=== PATIENT | female | born 1985 | race African-American/Black ===

== ENCOUNTER 2016-08-10 13:41 | Inpatient (IN) | payer MEDICAID ==
[~2016-08-10 13:41] MED LIST: DEXAMETHASONE SOD PHOSPHATE INJ 4 MG/1 ML VIAL ONE; KETOROLAC TROMETHAMINE 60 MG/2 ML SDV ONE; METOCLOPRAMIDE HCL INJ/PF 10 MG/2 ML SDV ONE; ONDANSETRON HCL INJ/PF 4 MG/2 ML SDV ONE; PHENYLEPHRINE HCL INJ/PF 10 MG/1 ML SDV ONE
[2016-08-10 14:35] LABS: APPEARANCE,URINE CLOUDY; BILIRUBIN,URINE NEGATIVE (NEGATIVE); GLUCOSE, URINE NEGATIVE (NEGATIVE); KETONES,URINE NEGATIVE (NEGATIVE); LEUKOCYTE ESTERASE,URINE LARGE (NEGATIVE); NITRITE,URINE NEGATIVE (NEGATIVE); PROTEIN,URINE 30 mg/dL (NEGATIVE); URINE SPECIFIC GRAVITY 1.019; UROBILINOGEN,URINE NEGATIVE mg/dL (<2.0)
[2016-08-10 14:52] LABS: URINE BARBITURATES SCREEN NEGATIVE; URINE METHADONE SCREEN NEGATIVE; URINE OPIATES LOW NEGATIVE; URINE PHENCYCLIDINE SCREEN NEGATIVE
[2016-08-10] MEDS ORDERED: IPRATROPIUM/ALBUTEROL 0.5-2.5 MG/3 ML AMPUL NEB ONE ×5 (15:01→17:00)
[2016-08-10 15:06] LABS: ABSOLUTE EOSINOPHILS # (AUTO) 0.1 10^3/uL (0.0-0.6); ABSOLUTE LYMPHOCYTES (AUTO) 1.9 10^3/uL (0.5-4.7); ABSOLUTE MONOCYTES (AUTO) 0.4 10^3/uL (0.1-1.4); BASOPHILS % (AUTO) 0.4 % (0-2); EOSINOPHILS % (AUTO) 0.9 % (0-6); HEMATOCRIT 36.8 % (36.0-47.0); HEMOGLOBIN 11.8 g/dL (12.0-15.5); HGB HCT DIFFERENCE -1.4; LYMPHOCYTES % (AUTO) 17.9 % (13-45); MEAN CORPUSCULAR HEMOGLOBIN 26.6 pg (27.0-33.4); MEAN CORPUSCULAR HGB CONC 32.2 g/dL (32.0-36.0); MEAN CORPUSCULAR VOLUME 83 fl (80-97); MONOCYTES % (AUTO) 3.6 % (3-13); RED BLOOD COUNT 4.45 10^6/uL (3.72-5.28); RED CELL DISTRIBUTION WIDTH 14.7 % (11.5-14.0); SEGMENTED NEUTROPHILS % (AUTO) 77.2 % (42-78); WHITE BLOOD COUNT 10.4 10^3/uL (4.0-10.5)
[2016-08-10 15:38] LABS: ALANINE AMINOTRANSFERASE 27 U/L (9-52); ALKALINE PHOSPHATASE 114 U/L (38-126); ANION GAP 11 (5-19); ASPARTATE AMINO TRANSFERASE 18 U/L (14-36); BILIRUBIN,TOTAL 0.5 mg/dL (0.2-1.3); BLOOD UREA NITROGEN 8 mg/dL (7-20); CALCIUM 9.1 mg/dL (8.4-10.2); CARBON DIOXIDE 19 mmol/L (22-30); CHLORIDE 107 mmol/L (98-107); CREATININE RESULT 0.62 mg/dL (0.52-1.25); GLUCOSE 107 mg/dL (75-110); LDH 420 U/L (313-618); SODIUM 137.4 mmol/L (137-145); TOTAL PROTEIN 6.8 g/dL (6.3-8.2); URIC ACID 2.5 mg/dL (2.5-6.2)
--- NOTE | 2016-08-10 16:00 | L&D Flow Sheet ---
LD Flowsheet Datetime Report Generated by CPN: 08/10/2016 16:00 Datetime: 08/10/2016 15:55 NBP Sys/Mercedes/Mean (mmHg): 194 (QS system process) : 76 (QS system process) : 109 (QS system process) Pulse: 78 (QS system process) LaborFlag: Antepartum (QS system process) Datetime: 08/10/2016 15:53 NBP Sys/Mercedes/Mean (mmHg): 185 (QS system process) : 103 (QS system process) : 127 (QS system process) Pulse: 88 (QS system process) LaborFlag: Antepartum (QS system process) Datetime: 08/10/2016 15:31 NBP Sys/Mercedes/Mean (mmHg): 139 (QS system process) : 87 (QS system process) : 108 (QS system process) Pulse: 79 (QS system process) LaborFlag: Antepartum (QS system process) Datetime: 08/10/2016 15:00 Communication Comments: Dr Jackson notified of assessment findings resp 24, bilateral wheezing, possible yeast infection. (Arcelia Diamond, RN) Datetime: 08/10/2016 14:58 Comments: Monitors removed. Ultrasound in progress. (Sarah Avery, RN) Datetime: 08/10/2016 14:57 IV/Blood Work: IV Bolus Started (Sarah Avery, RN) Datetime: 08/10/2016 14:17 Strip Reviewed by: Dr Neilsen (Arcelia Diamond, RN) Communication Comments: Dr Neilsen at bedside reviewing POC (Arcelia Baidy, RN) Datetime: 08/10/2016 14:12 NBP Sys/Mercedes/Mean (mmHg): 143 (QS system process) : 94 (QS system process) : 114 (QS system process) Pulse: 115 (QS system process) LaborFlag: Antepartum (QS system process) Datetime: 08/10/2016 14:08 Frequency (min): unsure (Arcelia Diamond RN) Monitor Interventions for FHR: Ultrasound Adjusted (Arcelia Diamond RN) Pain Scale: 4 (Arcelia Diamond RN) Pain Presence: Intermittent (Arcelia Diamond RN) Pain Type: Cramping (Arcelia Diamond RN) Pain Location: Abdomen (Arcelia Diamond RN) Pain Goal: 1 (Arcelia Diamond RN) Membrane Status: Intact (Arcelia Diamond RN) Vaginal Bleeding: None (Arcelia Diamond RN) Level of Consciousness: Fully Conscious (Arcelia Diamond RN) DTR's/Clonus: DTRs 2+; No Clonus (Arcelia Diamond RN) Headache: Temporal (Arcelia Diamond RN) Breath Sounds, Left: Wheezes; Stridor (Arcelia Diamond RN) Breath Sounds, Right: Wheezes (Arcelia Diamond, RN) Nausea/Vomiting: Hx of Nausea/Vomiting (Annotations: nausea) (Arcelia Diamond RN) RUQ Epigastric Pain: Denies (Arcelia Diamond, ELIZABETH) Patient Position/Activity: Right Tilt; Semi-Fowlers (Arcelia Diamond, ELIZABETH) Instructional Method: Verbal; Patient Instructed; Verbalized Understanding (Arcelia Diamond RN) Plan of Care: Plan of Care Discussed (Arcelia Diamond RN) Unit Routine: Independence to Room; Call Cabrera; Bed; Monitoring (Arcelia Diamond RN) LaborFlag: Antepartum (QS system process)
[2016-08-10] MEDS ORDERED: CITRIC ACID/SODIUM CITRATE ORAL SOLN 15 ML UDCUP PO PRN (16:32)
[2016-08-10] MEDS ORDERED: CEFAZOLIN 2 GM/D5W RTU 2 GM/50 ML RTUPB IV ONE ×4 (16:45→21:00)
[2016-08-10] MEDS ORDERED: OXYTOCIN 10 UNIT/ML VIAL ONE (16:49)
[2016-08-10] MEDS ORDERED: EPHEDRINE SULFATE INJ 50 MG/1 ML AMPULE ONE (16:49)
[2016-08-10] MEDS ORDERED: OXYTOCIN/NORMAL SALINE 20 UNIT/1,000 ML RTUINJ ONE (16:49)
[2016-08-10] MEDS ORDERED: MIDAZOLAM 2 MG/2 ML INJ ONE (16:50)
[2016-08-10] MEDS ORDERED: FENTANYL CITRATE INJ/PF 100 MCG/2 ML AMPUL ONE (16:50)
[2016-08-10 17:20] LABS: CHLAM PCR NOT DETECTED (NOT DETECT)
[2016-08-10 17:24] LABS: RUBELLA IGG ANTIBODY 5.82 IU/mL
[2016-08-10 17:38] LABS: ADD HIVPANEL? NO; HIV (1 AND 2) ANTIBODY NEGATIVE (NEGATIVE)
[2016-08-10] MEDS ORDERED: ONDANSETRON HCL INJ/PF 4 MG/2 ML SDV IV PRN ×3 (17:45→20:52)
[2016-08-10] MEDS ORDERED: PROMETHAZINE HCL INJ 25 MG/1 ML VIAL IV PRN ×2 (17:45)
[2016-08-10] MEDS ORDERED: MEPERIDINE HCL/PF INJ 25 MG/1 ML DISP.SYRIN IV PRN (17:45)
[2016-08-10] MEDS ORDERED: MORPHINE SULFATE 10 MG/ML INJ IV PRN (17:45)
[2016-08-10] MEDS ORDERED: DIPHENHYDRAMINE HCL 50 MG/ML VIAL IV PRN (17:45)
[2016-08-10] MEDS ORDERED: FENTANYL CITRATE INJ/PF 100 MCG/2 ML AMPUL IV PRN ×3 (17:45)
--- NOTE | 2016-08-10 18:00 | L&D Flow Sheet ---
LD Flowsheet Datetime Report Generated by CPN: 08/10/2016 18:00 Datetime: 08/10/2016 17:19 Procedure Type: Repeat c/section (Sarahwyatt Romeroon, RN) Procedure Verify: Correct Patient Identity; Correct Side and Site are Marked; Accurate Procedure Consent Form; Agreement on Procedure to be Done; Correct Patient Position (Sarahwyatt Romeroon, RN) Datetime: 08/10/2016 16:47 Monitor Mode: External; Palpation (Arcelia Lobo, RN) Frequency (min): denies (Arcelia Baidy, RN) Monitor Mode: External US (Arcelia Staceydy, RN) FHR Baseline Rate : 145 (Arcelia Baidy, RN) Variability: Moderate 6-25 bpm (Arcelia Baidy, RN) Accelerations: None (Arcelia Baidy, RN) Decelerations: None (Arcelia Baidy, RN) Datetime: 08/10/2016 16:43 Comments: Monitors removed. Pt. to OR for repeat c/section. (Sarah Avery, RN) Datetime: 08/10/2016 16:34 Communication Comments: Report received from Dulce Diamond RN. Care assumed. (Sarah Avery, RN) Datetime: 08/10/2016 16:26 Communication Comments: Dr Neilsen called c/s for IUGR (Arcelia Baidy, RN) Datetime: 08/10/2016 16:24 NBP Sys/Mercedes/Mean (mmHg): 159 (QS system process) : 86 (QS system process) : 115 (QS system process) Pulse: 78 (QS system process) LaborFlag: Antepartum (QS system process) Datetime: 08/10/2016 16:03 Patient Care Comments: RT in room give duoneb treatment. (Arcelia Baidy, RN) Datetime: 08/10/2016 16:00 Monitor Mode: External US (Arcelia Diamond RN) FHR Baseline Rate : 155 (Arcelia Diamond RN) Variability: Moderate 6-25 bpm (Arcelia Diamond RN) Accelerations: 15X15 (Arcelia Diamond RN) Decelerations: None (Arcelia Diamond RN)
[2016-08-10] MEDS ORDERED: ACETAMINOPHEN 100 ML IV ONE ×3 (18:05→21:00)
[2016-08-10] MEDS ORDERED: DIPHENHYDRAMINE HCL 50 MG/ML VIAL ONE (18:28)
[2016-08-10] MEDS ORDERED: PROMETHAZINE HCL INJ 25 MG/1 ML VIAL ONE (18:28)
[2016-08-10] MEDS ORDERED: OXYTOCIN/NORMAL SALINE 20 UNIT/1,000 ML RTUINJ IV PRN (18:40)
[2016-08-10] MEDS ORDERED: HYDROMORPHONE HCL INJ/PF 2 MG/ML AMPULE ONE (18:45)
--- NOTE | 2016-08-10 18:53 | OPERATIVE REPORT E ---
Operative Report NAME: BRANDO GRUBER : 1985 AGE: 30Y DATE OF SURGERY: 08/10/2016 ROOM: LR200 PREOPERATIVE DIAGNOSES: 1. Intrauterine with 39 weeks 4 days with intrauterine growth retardation. 2. Scant care. 3. History of x2. POSTOPERATIVE DIAGNOSES: 1. Intrauterine with 39 weeks 4 days with intrauterine growth retardation. 2. Scant care. 3. History of x2. 4. Intraperitoneal adhesive disease. OPERATION PERFORMED: Repeat low transverse cervical section. SURGEON: SUELLEN CONTRERAS M.D. ANESTHESIA: Spinal. ESTIMATED BLOOD LOSS: 600 mL. SPECIMEN TO PATHOLOGY: Placenta. FINDINGS: Osborn female infant. Vertex presentation. Thick meconium noted. There were significant intraperitoneal adhesions precluding removing the uterus from the peritoneal cavity. The tubes and ovaries were not visualized well due to this. The infant weighed 2245 gm with Apgars 8 and 9. DESCRIPTION OF PROCEDURE: After discussing risks, benefits, and alternatives of the procedure and obtaining informed consent, the patient was taken to the operating room where spinal anesthesia was achieved. She was positioned in the dorsal supine position with a leftward tilt. She was prepped and draped in the usual standard manner. Pfannenstiel skin incision was made. Abdomen was entered in layers in the standard fashion. Adhesions overlying the lower uterine segment were lysed sharply. Low transverse cervical incision was made. The surgeon's hand was entered into the hysterotomy incision, and the vertex delivered. Nuchal cord was reduced. The shoulders and body delivered easily. Nasopharynx and oropharynx were bulb suctioned. Cord was clamped x2 and cut. was handed to pediatrics who were present. Placenta was manually extracted. Uterus was left in situ due to adhesive disease. The hysterotomy incision was closed with 0 Monocryl in a running locked fashion. Excellent hemostasis was observed. The pelvis was irrigated and hemostasis again assured. A layer of Interceed was placed over the area where adhesions had been cleared. The rectus muscles were loosely reapproximated with interrupted sutures of 2-0 Vicryl. The subfascial spaces were inspected and noted to be hemostatic. The fascia was closed with #1 Vicryl. Subcutaneous spaces were irrigated and hemostasis achieved with cautery. The subcutaneous tissues were reapproximated with 3-0 plain gut and the skin was closed 3-0 Vicryl in a subcuticular fashion. An OpSite dressing was applied. The patient was taken to recovery in stable condition. All sponge, needle, lap, and instrument counts were correct x2. DICTATING PHYSICIAN: SUELLEN CONTRERAS M.D. [id number] PHY#: [id number] ID: [id number] JOB#: [id number] ACCT: [id number] cc:SUELLEN CONTRERAS M.D. >
--- NOTE | 2016-08-10 19:04 | Delivery Summary ---
Del Sum A-C Datetime Report Generated by CPN: 08/10/2016 19:03 ADMISSION DATA Chief Complaint: Other Chief Complaint Comments: cramping, uri sxs and wheezing Indication for Induction: IUGR Admission Impression: Term, Intrauterine Admit Provider Comments: Pt with h/o x2 lost to f/u for over a month, known IUGR, tob abuse, tachycarida -discussed r/b/a of repeat and pt consents, declines btl DELIVERY PERSONNEL Delivery Doctor:: Jenn Jackson MD Anesthesiologist:: Grupo Farr MD PLANNING MANAGEMENT IT SPECIALIST:: Veronica Avilez CRNA Labor and Delivery Nurse:: Sierra Romero RN Channeling Machine Operator:: Sarah Avery RN Neonatal Nurse Practitioner:: CHAD Mejia Nursery Nurse:: Cecilia Quiroz RN Engine Installer/SUPERVISOR FORMING AND TEMPERING: Cinthia Garcia, LAYER OFF Engine Installer/SUPERVISOR FORMING AND TEMPERING: Hardeep Walton LAYER OFF MATERNAL INFORMATION Delivery Anesthesia: Spinal Medications After Delivery: Pitocin Drip 20 Units/1000ml NSS Estimated Blood Loss (ml): 600 Maternal Complications: None LABOR SUMMARY EDC: 08/13/2016 00:00 No. Babies in Womb: 1 Attempted: No Labor Anesthesia: None LABOR INFORMATION Reason for Induction: Not Applicable Oxytocin: N/A Group B Beta Strep: unknown Antibiotics # of Doses: 0 Steroids Given: None Reason Steroids Not Administered: Not Applicable MEMBRANES Membranes Rupture Method: Artificial Rupture of Membranes: 08/10/2016 17:26 Length of Rupture (hr): 0.00 Amniotic Fluid Color: Heavy Meconium Amniotic Fluid Amount: Moderate Amniotic Fluid Odor: Normal STAGES OF LABOR Stage 3 hr: 0 Stage 3 min: 2 VAGINAL DELIVERY Sponge Count Correct: N/A CSECTION DELIVERY Primary Indication: Repeat Elective CSection Urgency: Non-Scheduled CSection Incidence: Repeat Labor: No Labor Elective: Nonelective CSection Incision: Lower Uterine Transverse BABY A INFORMATION Delivery Date/Time: 08/10/2016 17:26 Method of Delivery: Born in Route : No : N/A Forceps: N/A Vacuum Extraction: N/A Shoulder Dystocia : No PRESENTATION/POSITION BABY A Presentation: Cephalic Cephalic Presentation: Vertex Vertex Position: Right Occipital Anterior Breech Presentation: N/A PLACENTA INFORMATION BABY A Placenta Delivery Time : 08/10/2016 17:28 Placenta Method of Delivery: Manual Removal Placenta Status: Delivered SCORES BABY A Heart Rate 1 min: >100 bpm Resp Effort 1 min: Good Cry Reflex Irritability 1 min: Cough or Sneeze or Pulls Away Muscle Tone 1 min: Active Motion Color 1 min: Blue/Pale Resuscitation Effort 1 min: Tactile Stimulation SCORE 1 MIN: 8 Heart Rate 5 min: >100 bpm Resp Effort 5 min: Good Cry Reflex Irritability 5 min: Cough or Sneeze or Pulls Away Muscle Tone 5 min: Active Motion Color 5 min: Body Ragland, Extremities Blue Resuscitation Effort 5 min: Tactile Stimulation SCORE 5 MIN: 9 INFANT INFORMATION BABY A Gestational Age at Delivery: 39.4 Gestational Status: Full Term- 39- 40.6 Weeks Outcome : Liveborn Infant Condition : Stable Infant Sex: Female IDENTIFICATION BABY A Infant Verification Date/Time: 08/10/2016 17:32 ID Band Number: [id number] Mother's Name Verified: Yes Infant RN Verifying Infant: Abdiel Avery, RN and H. Marcy, RN WEIGHT/LENGTH BABY A Infant Birthweight (gm): 2245 Infant Weight (lb): 4 Weight (oz): 15 Infant Length (in): 18.50 Infant Length (cm): 46.99 CORD INFORMATION BABY A No. Cord Vessels: 3 Nuchal Cord : Around Neck x1, Loose Cord Blood Taken: Yes-For Storage (Mom's Blood type +) Suction: Mouth; Nose ASSESSMENT BABY A Infant Complications: Meconium Physical Findings at Delivery: Within Normal Limits Respirations: Appears Normal Skin to Skin: No Legal Summer Intern/ALS Called : No Infant Care By: Alba Quiroz RN and CHAD Díaz Transferred To: Nursery
--- NOTE | 2016-08-10 20:25 | Admission Physical ---
Datetime Report Generated by CPN: 08/10/2016 20:25 CURRENT ADMISSION Hx Assessment: The History has been Reviewed and is Current Chief Complaint: Other Chief Complaint Other: cramping, uri sxs and wheezing Indication for Induction: IUGR Admit Plan: Initiate Section Protocol ALLERGIES Medication Allergies: Yes Medication Allergies: lorazepam/NV/N V, High fever (12/22/2015) Latex: No Latex Allergies Food Allergies: None Environmental Allergies: None OBSTETRICAL HISTORY EDC: 08/13/2016 00:00 : 3 Para: 1 Term: 1 : 0 SAB: 1 IAB: 0 Ectopic: 0 Livin Cesareans: 1 VBACs: 0 Multiple Births: 0 Gestational Diabetes: No Rh Sensitization: No Incompetent Cervix: No RAJ: No Infertility: No ART Treatment: No Uterine Anomaly: No IUGR: No Hx Previous C/S: Yes Macrosomia: No Hx Loss/Stillborn: No PIH: Yes Hx : No Placenta Previa/Abruption: No Depression/PP Depression: No PTL/PROM: No Post Hemorrhage: No Current Procedures: Ultrasound; NST Obstetrical History Comments: G1-SAB G2-TERM, C/S, Preeclampsia G3-CURRENT SEE RECORDS Alcohol: No Marijuana : No Marijuana Comments: Pt reports smoking marijuana until finding out she was Cocaine: No Other Illicit Drugs: No Cigarettes: Current Everyday Smoker. [id number] MEDICAL HISTORY Diabetes: No Blood Transfusion: No Pulmonary Disease (Asthma, TB): Yes Breast Disease: No Hypertension: Yes Licensed Club Manager Surgery: No Heart Disease: No Hosp/Surgery: Yes Autoimmune Disorder: No Anesthetic Complications: No Kidney Disease: No Abnormal Pap Smear: No Neuro/Epilepsy: No Psychiatric Disorders: Yes Other Medical Diseases: No Hepatitis/Liver Disease: No Significant Family History: No Varicosities/Phlebitis: No Trauma/Violence : No Thyroid Dysfunction: No Medical History Comments: ASTHMA, ON MEDICATIONS HX SCHIZOPHRENIA, BIPOLAR CYST REMOVED FROM BREAST INFECTIOUS HISTORY Gonorrhea: No Genital Herpes: No Chlamydia: No Tuberculosis: No Syphilis: No Hepatitis: No HIV/AIDS Exposure: No Rash or Viral Illness: No HPV: No PHYSICAL EXAM Physical Exam Comments: lungs with wheezing bilaterally Vital Signs: Reviewed FETUS A EGA: 39.4 Monitoring: External US FHR Comments: tachycardia Admit Comment: Pt with h/o x2 lost to f/u for over a month, known IUGR, tob abuse, tachycarida -discussed r/b/a of repeat and pt consents, declines btl PLANS FOR LABOR AND DELIVERY Labor and Delivery: None Pain Management: None Feeding Preference: Breast Benefit of Breast Feed Discussed: Yes Circumcision: N/A INFORMED CONSENT Signature: with User ID: [email or web address]
[2016-08-10] MEDS ORDERED: DIPH/PERTUSS(ACELL)/TETANUS VAC/PF 0.5 ML SYR (>=10YO) IM PRN ×2 (20:41→20:50)
[2016-08-10] MEDS ORDERED: MEASLES,MUMPS&RUBELLA VACC/PF 0.5 ML VIAL SUBCUT PRN ×2 (20:41→20:50)
[2016-08-10] MEDS ORDERED: ACETAMINOPHEN 325 MG TABLET PO PRN ×2 (20:41→20:50)
[2016-08-10] MEDS ORDERED: SIMETHICONE 80 MG TAB.CHEW PO PRN ×2 (20:41→20:50)
[2016-08-10] MEDS ORDERED: OXYTOCIN/NORMAL SALINE 20 UNIT/1,000 ML RTUINJ INJ PRN ×2 (20:41→20:50)
[2016-08-10] MEDS ORDERED: PROMETHAZINE HCL INJ 25 MG/1 ML VIAL IM PRN ×2 (20:41→20:50)
[2016-08-10] MEDS ORDERED: OXYCODONE-ACETAMINOPHEN 5-325 MG TABLET PO PRN ×3 (20:41→20:50)
[2016-08-10] MEDS ORDERED: ONDANSETRON 4 MG TAB.RAPDIS PO PRN ×2 (20:43→20:52)
[2016-08-10] MEDS ORDERED: RINGERS SOLUTION,LACTATED 1,000 ML IV PRN (20:45)
[2016-08-10] MEDS ORDERED: HYDROMORPHONE HCL INJ/PF 2 MG/ML AMPULE IV PRN (20:50)
[2016-08-10] MEDS ORDERED: ALBUTEROL SULFATE 0.083% NEB 2.5 MG/3 ML AMPUL NEB PRN (20:53)
[2016-08-10] MEDS ORDERED: METRONIDAZOLE 500 MG TABLET PO ONE (21:15)
[2016-08-10] MEDS: HYDROMORPHONE HCL INJ/PF 2 MG/ML AMPULE IV PRN (22:29)
[2016-08-11] MEDS ORDERED: IBUPROFEN 800 MG TABLET PO SCH
[2016-08-11] MEDS: OXYCODONE-ACETAMINOPHEN 5-325 MG TABLET PO PRN ×6 (00:37→23:15)
[2016-08-11] MEDS: IBUPROFEN 800 MG TABLET PO SCH ×5 (01:34→23:14)
[2016-08-11] MEDS: HYDROMORPHONE HCL INJ/PF 2 MG/ML AMPULE IV PRN (02:07)
[2016-08-11] MEDS: ALBUTEROL SULFATE 0.083% NEB 2.5 MG/3 ML AMPUL NEB PRN ×2 (04:41→16:54)
[2016-08-11 06:34] LABS: HEMATOCRIT 34.7 % (36.0-47.0); HEMOGLOBIN 10.9 g/dL (12.0-15.5); MEAN CORPUSCULAR HEMOGLOBIN 26.4 pg (27.0-33.4); MEAN CORPUSCULAR HGB CONC 31.5 g/dL (32.0-36.0); MEAN CORPUSCULAR VOLUME 84 fl (80-97); RED BLOOD COUNT 4.15 10^6/uL (3.72-5.28); RED CELL DISTRIBUTION WIDTH 14.8 % (11.5-14.0); WHITE BLOOD COUNT 19.4 10^3/uL (4.0-10.5)
--- NOTE | 2016-08-11 07:01 | L&D Flow Sheet ---
LD Flowsheet Datetime Report Generated by CPN: 08/11/2016 07:00 Datetime: 08/10/2016 19:57 Pulse: 71 (QS system process) SpO2 (%): 99 (QS system process) Temperature (F): 97.8 ([facility]) Temperature (C): 36.6 (QS system process) Temperature Route: Oral ([facility], ) Datetime: 08/10/2016 19:52 Pulse: 60 (QS system process) SpO2 (%): 99 (QS system process) Datetime: 08/10/2016 19:51 Pain Scale: pt is sleeping at this moment (Genie Ledgerwood, RN) Datetime: 08/10/2016 19:48 NBP Sys/Mercedes/Mean (mmHg): 148 (QS system process) : 87 (QS system process) : 112 (QS system process) Pulse: 60 (QS system process) Respirations: 15 (Genie Ledgerwood, RN) Datetime: 08/10/2016 19:47 Pulse: 59 (QS system process) SpO2 (%): 99 (QS system process) Datetime: 08/10/2016 19:42 Pulse: 74 (QS system process) SpO2 (%): 99 (QS system process) Datetime: 08/10/2016 19:37 Pulse: 61 (QS system process) SpO2 (%): 99 (QS system process) Datetime: 08/10/2016 19:33 NBP Sys/Mercedes/Mean (mmHg): 143 (QS system process) : 86 (QS system process) : 106 (QS system process) Pulse: 74 (QS system process) Datetime: 08/10/2016 19:32 Pulse: 74 (QS system process) SpO2 (%): 99 (QS system process) Datetime: 08/10/2016 19:27 Pulse: 62 (QS system process) SpO2 (%): 99 (QS system process) Datetime: 08/10/2016 19:22 Pulse: 63 (QS system process) SpO2 (%): 98 (QS system process) Datetime: 08/10/2016 19:18 NBP Sys/Mercedes/Mean (mmHg): 151 (QS system process) : 87 (QS system process) : 114 (QS system process) Pulse: 57 (QS system process) Datetime: 08/10/2016 19:17 Pulse: 60 (QS system process) SpO2 (%): 98 (QS system process) Datetime: 08/10/2016 19:12 Pulse: 72 (QS system process) SpO2 (%): 98 (QS system process) Datetime: 08/10/2016 19:07 Pulse: 69 (QS system process) SpO2 (%): 99 (QS system process) Datetime: 08/10/2016 19:03 NBP Sys/Mercedes/Mean (mmHg): 103 (QS system process) : 64 (QS system process) : 76 (QS system process) Pulse: 68 (QS system process) Respirations: 16 (Sarah Avery RN) Pain Scale: 0 (Sarah Avery RN) Pain Presence: None/Denies (Sarha Avery RN) Pain Type: N/A (Sarah Avery RN) Pain Location: Abdomen (Sarah Avery RN) Pain Goal: 0 (Sarah Avery RN) Datetime: 08/10/2016 19:02 Pulse: 75 (QS system process) SpO2 (%): 96 (QS system process)
[2016-08-11] MEDS: DOCUSATE SODIUM 100 MG CAPSULE PO SCH ×2 (09:46→16:53)
[2016-08-11] MEDS: PRENATAL VITAMIN W-O CA NO5/FE FUMARATE/FA CAPSULE PO SCH (09:46)
[2016-08-11] MEDS ORDERED: DOCUSATE SODIUM 100 MG CAPSULE PO SCH (10:00)
[2016-08-11] MEDS ORDERED: PRENATAL VITAMIN W-O CA NO5/FE FUMARATE/FA CAPSULE PO SCH (10:00)
--- NOTE | 2016-08-11 11:03 | PDOC PROGRESS REPORT ---
Subjective-OB Subjective: Post Delivery Day: 30 year old. Denies any needs at this time Physical Exam (OB) Vital Signs: Temp Pulse Resp BP Pulse Ox 98.2 F 73 16 126/78 H 100 08/11/16 07:49 08/11/16 10:04 08/11/16 07:49 08/11/16 07:49 08/11/16 07:49 Intake & Output 08/10/16 08/11/16 08/12/16 06:59 06:59 06:59 Output Total 1300 Balance -1300 Weight 125.25 kg - Dressing Removed: No Incision: Dressing, Draining Closure Type: opsite Note: Red blood on central portion of opsite. - Lochia Lochia Amount: Scant < 10 ml Lochia Color: Rubra/Red - Abdomen Description: Tender, Soft, Round Hernia Present: No Bowel Sounds: Normoactive Flatus Presence: Present Stool: No Fundal Description: Firm, Midline Fundal Height: u/u - u/2 Objective-Diagnostic Laboratory: 08/11/16 05:54 08/10/16 14:54 08/10/16 08/10/16 08/10/16 13:49 14:54 14:54 WBC 10.4 RBC 4.45 Hgb 11.8 L Hct 36.8 MCV 83 MCH 26.6 L MCHC 32.2 RDW 14.7 H Plt Count 354 Seg Neutrophils % 77.2 Lymphocytes % 17.9 Monocytes % 3.6 Eosinophils % 0.9 Basophils % 0.4 Absolute Neutrophils 8.0 Absolute Lymphocytes 1.9 Absolute Monocytes 0.4 Absolute Eosinophils 0.1 Absolute Basophils 0.0 Sodium 137.4 Potassium 4.0 Chloride 107 Carbon Dioxide 19 L Anion Gap 11 BUN 8 Creatinine 0.62 Est GFR ( Amer) > 60 Est GFR (Non-Af Amer) > 60 Glucose 107 Uric Acid 2.5 Calcium 9.1 Total Bilirubin 0.5 AST 18 ALT 27 Alkaline Phosphatase 114 Total Protein 6.8 Albumin 3.0 L Urine Color YELLOW Urine Appearance CLOUDY Urine pH 7.0 Ur Specific [place] 1.019 Urine Protein 30 H Urine Glucose (UA) NEGATIVE Urine Ketones NEGATIVE Urine Blood NEGATIVE Urine Nitrite NEGATIVE Ur Leukocyte Esterase LARGE H Blood Type Antibody Screen 08/10/16 08/11/16 14:54 05:54 WBC 19.4 H RBC 4.15 Hgb 10.9 L Hct 34.7 L MCV 84 MCH 26.4 L MCHC 31.5 L RDW 14.8 H Plt Count 308 Seg Neutrophils % Lymphocytes % Monocytes % Eosinophils % Basophils % Absolute Neutrophils Absolute Lymphocytes Absolute Monocytes Absolute Eosinophils Absolute Basophils Sodium Potassium Chloride Carbon Dioxide Anion Gap BUN Creatinine Est GFR ( Amer) Est GFR (Non-Af Amer) Glucose Uric Acid Calcium Total Bilirubin AST ALT Alkaline Phosphatase Total Protein Albumin Urine Color Urine Appearance Urine pH Ur Specific [place] Urine Protein Urine Glucose (UA) Urine Ketones Urine Blood Urine Nitrite Ur Leukocyte Esterase Blood Type A POSITIVE Antibody Screen NEGATIVE
--- NOTE | 2016-08-11 18:00 | L&D Current Admission ---
Current Admit Datetime Report Generated by CPN: 08/11/2016 18:00 ADMISSION INFORMATION Current Admit Date/Time: 08/10/2016 15:28 (08/10/2016 14:08:Tabitha Vidal RN) Reason for Admission: Repeat Section; Observation (08/10/2016 14:08:Tabitha Vidal RN) Chief Complaint: Uterine Cramping (08/10/2016 14:08:Arcelia Diamond RN) Medications During : Promethazine (Phenergan); Vitamin (08/10/2016 14:08:Tabitha Vidal RN) EGA per Dates: 39.4 (08/10/2016 14:08:QS system process) EGA per US: 144.3 (08/10/2016 14:08:QS system process) Method of Arrival: Ambulatory (08/10/2016 14:08:Tabitha Vidal RN) Admitted From: Home (08/10/2016 14:08:Tabitha Vidal RN) Reason for Induction: Not Applicable (08/10/2016 14:08:Tabitha Vidal RN) Records Available: No (08/10/2016 14:08:Tabitha Vidal RN) General Admission Information: Reviewed; Updated; Confirmed (08/10/2016 14:08:Tabitha Vidal RN) General Admission Reviewed By: Krystian Diamond RN (08/10/2016 14:08:Arcelia Diamond RN) BELONGINGS/ADVANCED DIRECTIVES Valuables/Personal Effects: None (08/10/2016 14:08:Tabitha Vidal RN) Disposition of Belongings: Sent Home (08/10/2016 14:08:Tabitha Vidal RN) Comments Regarding Disposition: see valuables (08/10/2016 14:08:Tabitha Vidal RN) Advance Direct for Healthcare: No, and Wants No Information (08/10/2016 14:08:Tabitha Vidal RN) Durable Power of Machine Sewer: No (08/10/2016 14:08:Tabitha Vidal RN) Living Will: No (08/10/2016 14:08:Tabitha Vidal RN) Organ Donor: No (08/10/2016 14:08:Tabitha Vidal RN) Pt Rights Information Given: Yes (08/10/2016 14:08:Tabitha Vidal RN) Pt Understands Pt Rights: Yes (08/10/2016 14:08:Tabitha Vidal RN) LEARNING ASSESSMENT Knowledge Level: Understands L_D Process (08/10/2016 14:08:Tabitha Vidal RN) Barriers to Learning: None (08/10/2016 14:08:Tabitha Vidal RN) Learning Readiness: Motivated (08/10/2016 14:08:Tabitha Vidal RN) Learns Best By: Reading (08/10/2016 14:08:Tabitha Vidal RN) Learning Needs: Labor and Delivery Process; Pain Management; Symptoms to Report; Treatment Plan; Medication; Diagnosis; Nutrition; Equipment; Infant Care; Community Resources (08/10/2016 14:08:Tabitha Vidal RN) DOMESTIC VIOLANCE SCREENING Dom Viol Threatened/Hurt: No (08/10/2016 14:08:Tabitha Vidal RN) Hx of Abuse/Neglect past 2yrs: No (08/10/2016 14:08:Tabitha Vidal RN) Feel Unsafe Going Home: No (08/10/2016 14:08:Tabitha Vidal RN) Addt'l Observ Indicating Abuse: No (08/10/2016 14:08:Tabitha Vidal RN) Reason Unable to Complete Screen: N/A, Screen Completed (08/10/2016 14:08:Tabitha Vidal RN) Considered Personal Harm/Suicide: No (08/10/2016 14:08:Tabitha Vidal RN) NUTRITIONAL/FUNCTIONAL SCREENING Problem with Appetite >5 Days: No (08/10/2016 14:08:Tabitha Vidal RN) Chew/Swallow Difficulties: No (08/10/2016 14:08:Tabitha Vidal RN) Inappropriate Wt Gain/Loss: No (08/10/2016 14:08:Tabitha Vidal RN) Presence Skin Breakdown/Ulcer: No (08/10/2016 14:08:Tabitha Vidal RN) Special Diet: No (08/10/2016 14:08:Tabitha Vidal RN) Pt Requests Expanded Duty Dental Assistant Visit: No (08/10/2016 14:08:Tabitha Vidal RN) Hx of Any of the Following?: N/A (08/10/2016 14:08:Tabitha Vidal RN) New Diagnosis of: N/A (08/10/2016 14:08:Tabitha Vidal RN) Requires Assist w/Ambulation: No (08/10/2016 14:08:Tabitha Vidal RN) Uses Assist Device to Ambulate: No (08/10/2016 14:08:Tabitha Vidal RN) Pt Requires Help w/ADL's: No (08/10/2016 14:08:Tabitha Vidal RN)
--- NOTE | 2016-08-11 18:00 | L&D General Admission ---
General Admit Datetime Report Generated by CPN: 08/11/2016 18:00 INFORMATION Patient Age: 28 (05/09/2014 17:05:QS system process) EDC: 08/13/2016 00:00 (05/18/2014 14:30:Tabitha Vidal RN) EDC per Ultrasound: 08/10/2014 00:00 (05/18/2014 14:30:Kaycee Moran RN) LMP: 11/02/2013 00:00 (05/18/2014 14:30:Kaycee Moran RN) : 3 (05/18/2014 14:30:Kaycee Moran RN) Para: 1 (05/18/2014 14:30:Kaycee Moran RN) Term: 1 (05/18/2014 14:30:Kaycee Moran RN) : 0 (05/18/2014 14:30:Kaycee Moran RN) Spontaneous Abortions: 1 (05/18/2014 14:30:Kaycee Moran RN) Induced Abortions: 0 (05/18/2014 14:30:Sierra Davis) Livin (05/18/2014 14:30:Kaycee Moran RN) Cesareans: 1 (05/18/2014 14:30:Kaycee Moran RN) VBACs: 0 (05/18/2014 14:30:Kaycee Moran RN) Ectopic: 0 (05/18/2014 14:30:Sierra Davis) Multiple Births: 0 (05/18/2014 14:30:Kaycee Moran RN) Baby, Number in Womb: 1 (05/18/2014 14:30:Sierra Davis) CARE Primary [employer] Station Chief: [facility] (05/18/2014 14:30:Kaycee Moran RN) Month of 1st Visit: 03/02/14 (05/18/2014 14:30:Kaycee Moran RN) Adequate Care: Yes (05/18/2014 14:30:Sierra Davis) Prepregnancy Weight (lb): 254 (05/18/2014 14:30:Kaycee Moran RN) Prepregnancy Weight (kg): 115.5 (05/18/2014 14:30:QS system process) Height (in): 67 (08/10/2016 20:24:QS system process) ALLERGIES Medication Allergy: Yes (05/18/2014 14:30:Joan Ribeiro RN) Medication Allergies: lorazepam/PA/N V, High fever (12/22/2015) (05/06/2016 01:07:QS system process) Latex Allergy: No Latex Allergies (05/18/2014 14:30:Joan Ribeiro RN) Food Allergies: None (05/18/2014 14:30:Joan Ribeiro RN) Environmental Allergies: None (05/18/2014 14:30:Joan Ribeiro RN) COMMUNICATION Primary Language: Honduran (05/18/2014 14:30:Kaycee Moran RN) Medical Tx Preferred Language: Honduran (05/18/2014 14:30:Kaycee Moran RN) Communication Barrier(s): None (05/18/2014 14:30:Kaycee Moran RN) DEMOGRAPHICS Address: [address] [place] [address], [place] [address] (06/17/2014 11:21:QS system process) Zipcode: [address] (05/09/2014 17:05:QS system process) County: [place] (05/18/2014 14:30:Arcelia Diamond RN) Home (05/06/2016 01:07:QS system process) SSN: [id number] (05/09/2014 17:05:QS system process) Next of Kin Name: HARRY SHIPLEY (05/09/2014 17:05:QS system process) Next of Kin (05/09/2014 17:05:QS system process) Next of Kin Relationship: [place] (05/09/2014 17:05:QS system process) Date of : 1985 (05/09/2014 17:05:QS system process) Marital Status: Single (05/09/2014 17:05:QS system process) Sex: Female (05/09/2014 17:05:QS system process) Race: (05/09/2014 17:05:QS system process) Ethnicity: Non- or (05/18/2014 14:53:QS system process) Shinto: None (07/21/2014 15:57:QS system process) FOB Involved: No (05/18/2014 14:30:Arcelia Diamond RN) DRUG AND ALCOHOL USE Alcohol: No (05/18/2014 14:30:Kaycee Moran RN) Cigarettes: Current Everyday Smoker. [id number] (05/18/2014 14:30:Kaycee Moran RN) Marijuana: No (05/18/2014 14:30:Kaycee Moran RN) Marijuana Comments: Pt reports smoking marijuana until finding out she was (05/18/2014 14:30:Joan Ribeiro RN) Cocaine: No (05/18/2014 14:30:Kaycee Moran RN) Other Illicit Drugs: No (05/18/2014 14:30:Kaycee Moran RN) VACCINE HISTORY Influenza Vaccine: No (05/18/2014 14:30:Kaycee Moran RN) Pneumococcal Vaccine: No (05/18/2014 14:30:Kaycee Moran RN) Tetanus Vaccine: Uncertain (05/18/2014 14:30:Kaycee Moran RN) Tdap Vaccine: Yes (05/18/2014 14:30:Kayceeaudra Moran RN) Tdap Date: 05/17/14 (05/18/2014 14:30:Kaycee Moran RN) Hepatitis B Vaccine: Yes (05/18/2014 14:30:Kayceeaudra Moran RN) Medical Lab Scientist: [facility] (05/18/2014 14:30:Joan Ribeiro RN) Feeding Preference: Breast (05/18/2014 14:30:Sarah Avery RN) Benefit of Breast Feed Discussed: Yes (05/18/2014 14:30:Sierra Davis) Circumcision: N/A (05/18/2014 14:30:Arcelia Diamond RN) Classes Attended: No (05/18/2014 14:30:Arcelia Diamond RN) Tubal Ligation: No (05/18/2014 14:30:Kaycee Moran RN) Pain Management Plans: None (05/18/2014 14:30:Kaycee Moran RN) Plans for Labor and Delivery: None (05/18/2014 14:30:Kaycee Moran RN) Support Person: HARRY SHIPLEY (05/18/2014 14:30:Kaycee Moran RN) Support Person Relationship: Mother (05/18/2014 14:30:Kaycee Moran RN) Cultural/Spritual Practice: No (05/18/2014 14:30:Kaycee Moran RN) LIVING SITUATION/DISCHARGE PLAN Living Arrangements: Apartment (05/18/2014 14:30:Kaycee Moran RN) Adequate Access to:: Electric; Heat; Refrigeration; Plumbing/Running water; Phone; Transportation (05/18/2014 14:30:Kaycee Moran RN) WIC Program: Yes (05/18/2014 14:30:Kaycee Moran RN) Discharge Telemetry Rn Person: MOTHER (05/18/2014 14:30:Kaycee Moran RN) Person to Help after Discharge: MOTHER (05/18/2014 14:30:Kaycee Moran RN) Currently Using Commun Resources: Yes (05/18/2014 14:30:Sierra Davis) Outside Agency/Bandoleer Straightener Stamper: Yes (05/18/2014 14:30:Kaycee Moran RN) Specify Agency/ Bandoleer Straightener Stamper: [id number], [employer] CLERK FROM [employer] DE[employer] (05/18/2014 14:30:Kaycee Moran RN) Car Seat for Discharge: Yes (05/18/2014 14:30:Kaycee Moran RN) Adoption Requested: No (05/18/2014 14:30:Sierra Davis) Pt Contact w/ Post : N/A (05/18/2014 14:30:Sierra Davis) LABS Blood Type: A Positive (05/18/2014 14:30:Arcelia Diamond RN) Antibody Screen: negative (05/18/2014 14:30:Arcelia Diamond RN) Rho(G) this : Not Applicable (05/18/2014 14:30:Arcelia Diamond RN) Hemoglobin: 10.9 L (08/11/2016 05:54:QS system process) Hematocrit: 34.7 L (08/11/2016 05:54:QS system process) MCV: 84 (08/11/2016 05:54:QS system process) Group Beta Strep: unknown (05/18/2014 14:30:Sarah Avery RN) HIV Exposure Test: Negative (05/18/2014 14:30:Sarah Avery RN) HIV Results: NEGATIVE (08/10/2016 14:54:QS system process) Rubella: NEGATIVE NEGATIVE IF LESS THAN OR EQUAL TO 9.99 IU/mL POSITIVE IF GREATER THAN OR EQUAL TO 10.0 IU/mL (08/10/2016 14:54:QS system process) Rubella Titer: 5.82 (08/10/2016 14:54:QS system process) OB/PREVIOUS HISTORY LMP: 11/02/2013 00:00 (05/18/2014 14:30:Kaycee Moran RN) Previous Procedures: Ultrasound (05/18/2014 14:30:Sierra Davis) Current Procedures: Ultrasound; NST (05/18/2014 14:30:Sierra Davis) History of Previous : Yes (05/18/2014 14:30:Kaycee Moran RN) History of Gestational Diabetes: No (05/18/2014 14:30:Kaycee Moran RN) History of PIH: Yes (05/18/2014 14:30:Kaycee Moran RN) History of Incompetent Cervix: No (05/18/2014 14:30:Kaycee Moran RN) History of Placenta Previa/Abrup: No (05/18/2014 14:30:Kaycee Moran RN) History of Macrosomia: No (05/18/2014 14:30:Kaycee Moran RN) History of IUGR: No (05/18/2014 14:30:Kaycee Moran RN) History of Hemorrhage: No (05/18/2014 14:30:Kaycee Moran RN) History of Loss/Stillborn: No (05/18/2014 14:30:Kaycee Moran RN) History of : No (05/18/2014 14:30:Kaycee Moran RN) History of D (Rh) Sensitization: No (05/18/2014 14:30:Kaycee Moran RN) History Recurrent Loss/Stillborn: No (05/18/2014 14:30:Kaycee Moran RN) History Depression/PP Depression: No (05/18/2014 14:30:Kaycee Moran RN) History of Uterine Anomaly/RAJ: No (05/18/2014 14:30:Kaycee Moran RN) History of Infertility: No (05/18/2014 14:30:Kaycee Moran RN) History of ART Treatment: No (05/18/2014 14:30:Kaycee Moran RN) History of RAJ: No (05/18/2014 14:30:Kaycee Moran RN) Comments Obstetrical History: G1-SAB G2-TERM, C/S, Preeclampsia G3-CURRENT (05/18/2014 14:30:Joan Ribeiro RN) MEDICAL HISTORY Med Hx Diabetes: No (05/18/2014 14:30:Kaycee Moran RN) Med Hx Hypertension: Yes (05/18/2014 14:30:Kaycee Moran RN) Med Hx Heart Disease: No (05/18/2014 14:30:Kaycee Moran RN) Med Hx Autoimmune Disorder: No (05/18/2014 14:30:Kaycee Moran RN) Med Hx Kidney Disease/UTI: No (05/18/2014 14:30:Kaycee Moran RN) Med Hx Neurologic/Epilepsy: No (05/18/2014 14:30:Kaycee Moran RN) Med Hx Psychiatric Disorders: Yes (05/18/2014 14:30:Kaycee Moran RN) Med Hx Hepatitis/Liver Disease: No (05/18/2014 14:30:Kaycee Moran RN) Med Hx Varicosities/Phlebitis: No (05/18/2014 14:30:Kaycee Moran RN) Med Hx Thyroid Dysfunction: No (05/18/2014 14:30:Kaycee Moran RN) Med Hx Trauma/Violence: No (05/18/2014 14:30:Kaycee Moran RN) Med Hx Blood Transfusion: No (05/18/2014 14:30:Kaycee Moran RN) Med Hx Pulmonary (Asthma,TB): Yes (05/18/2014 14:30:Kaycee Moran RN) Med Hx Breast: No (05/18/2014 14:30:Kaycee Moran RN) Med Hx ASTRO TECHNICIAN Surgery: No (05/18/2014 14:30:Kaycee Moran RN) Med Hx Hospitalization/Surgery: Yes (05/18/2014 14:30:Kaycee Moran RN) Med Hx Anesthetic Complications: No (05/18/2014 14:30:Kaycee Moran RN) Med Hx Abnormal Pap Smear: No (05/18/2014 14:30:Kaycee Moran RN) Other Medical Diseases: No (05/18/2014 14:30:Kaycee Moran RN) Med Hx Significant Family Hx: No (05/18/2014 14:30:Kaycee Moran RN) Details of Med/Surg Hx: ASTHMA, ON MEDICATIONS HX SCHIZOPHRENIA, BIPOLAR CYST REMOVED FROM BREAST (05/18/2014 14:30:Kaycee Moran RN) INFECTIOUS HISTORY Inf Hx Gonorrhea: No (05/18/2014 14:30:Kaycee Moran RN) Inf Hx Chlamydia: No (05/18/2014 14:30:Kaycee Moran RN) Inf Hx Syphilis: No (05/18/2014 14:30:Kaycee Moran RN) Inf Hx HIV/AIDS: No (05/18/2014 14:30:Kaycee Moran RN) Inf Hx Human Papilloma Virus: No (05/18/2014 14:30:Kaycee Moran RN) Inf Hx Pt/Partner Genital Herpes: No (05/18/2014 14:30:Kaycee Moran RN) Inf Hx Tuberculosis/Exposure: No (05/18/2014 14:30:Kaycee Moran RN) Inf Hx Hepatitis B,C: No (05/18/2014 14:30:Kyacee Moran RN) Inf Hx Rash or Viral Illness: No (05/18/2014 14:30:Kaycee Moran RN) GENETIC HISTORY Gen Hx Age >=35 at YURY: Unknown (05/18/2014 14:30:Kaycee Moran RN) Gen Hx Thalassemia: No (05/18/2014 14:30:Kaycee Moran RN) Gen Hx Congenital Heart Defect: No (05/18/2014 14:30:Kaycee Moran RN) Gen Hx Neural Tube Defect: No (05/18/2014 14:30:Kaycee Moran RN) Gen Hx Down's Syndrome: No (05/18/2014 14:30:Kaycee Moran RN) Gen Hx Jorge-Sachs: No (05/18/2014 14:30:Kaycee Moran RN) Gen Hx Era: No (05/18/2014 14:30:Kaycee Moran RN) Gen Hx Familial Dysautonomia: No (05/18/2014 14:30:Kaycee Moran RN) Gen Hx Sickle Cell Disease/Trait: No (05/18/2014 14:30:Kaycee Moran RN) Gen Hx Hemophilia/Blood Disorder: No (05/18/2014 14:30:Kaycee Moran RN) Gen Hx Muscular Dystrophy: No (05/18/2014 14:30:Kaycee Moran RN) Gen Hx Cystic Fibrosis: No (05/18/2014 14:30:Kaycee Moran RN) Gen Hx Huntingtons Chorea: No (05/18/2014 14:30:Kaycee Moran RN) Gen Hx Mental Retardation/Autism: No (05/18/2014 14:30:Kaycee Moran RN) Gen Hx Tested for Fragile X: No (05/18/2014 14:30:Kaycee Moran RN) Gen Hx Other Inher/Chromosomal: No (05/18/2014 14:30:Kaycee Moran RN) Gen Hx Maternal Metabolic DO: No (05/18/2014 14:30:Kaycee Moran RN) Gen Hx Pt Father or FOB Defect: No (05/18/2014 14:30:Kaycee Moran RN) Gen Hx Other Genetic History: No (05/18/2014 14:30:Kaycee Moran RN) Gen Hx Drugs/Meds since LMP: No (05/18/2014 14:30:Kaycee Moran RN)
--- NOTE | 2016-08-11 18:15 | L&D Care Plan ---
LD CARE PLANS Datetime Report Generated by CPN: 08/11/2016 18:15 Datetime: 08/10/2016 16:30 Pain State: Actual (Arcelia Diamond RN) Related To: Labor and Delivery Process; Surgical Procedure; Post (Arcelia Diamond RN) Goal(s): Patients Pain will be Assessed and Managed; Patient will Verbalize Adequate Relief of Pain or the Ability to [place] with Current Pain (Arcelia Diamond RN) Interventions: Assess Pain Severity on Scale of 0 (None) to 5 (Severe); Assess Type, Location and Intensity of Pain Each Time Client Reports Discomfort and Notify Provider if Unusal Pain Develops; Encourage Proper Breathing and Relaxation Techniques; Offer Alternatives Such as Repositioning, Calm Environment, Massages, Diversional Activities, Ice Pack, Splinting, and Ambulation; Administer Analgesics as Ordered; Assist with Epidural Placement as Appropriate; Evaluate Therapeutic Effectiveness of Medication and Treatments (Arcelia Diamond RN) Outcome: Patient will Report Absence or Relief of Pain Consistent with Established Pain Goal (Arcelia Diamond RN) Status: Ongoing (Arcelia Diamond RN) Outcome: Patient will have a Decrease in Signs and Symptoms of Discomfort (Arcelia Diamond RN) Status: Ongoing (Arcelia Diamond RN) Status: Ongoing (Arcelia Diamond RN) Anxiety State: Risk For (Arcelia Diamond RN) Related To: Surgical Procedure; Fear of Unknown; Significant Life Event (Arcelia Diamond RN) Goal(s): Patient will have Decreased Anxiety and be able to Function at Acceptable Levels (Arcelia Diamond RN) Interventions: Assess Verbal and Nonverbal Behavioral Indicators of Anxiety; Assist Patient to Identify and Verbalize Symptoms of Anxiety; Identify and Demonstrate Techniques to Control Anxiety; Assist Patient with Coping Mechanisms to Manage Anxiety; Provide Theraputic Touch for the Patient; Explain to Patient, Using a Calm Reassuring Approach and Nonmedical Terms, All Activities, Procedures, and Concerns; Instruct Patient and Family about Post Discharge Care, Limitations, Symptoms to Report and Resources Available (Arcelia Diamond RN) Outcome: Patient will Identify, Verbalize and Demonstrate Techniques to Control Anxiety (Arcelia Diamond RN) Status: Ongoing (Arcelia Diamond RN) Outcome: Patient's Posture, Facial Expressions, Gestures and Activity Level will Reflect Decreased Anxiety (Arcelia Diamond RN) Status: Ongoing (Arcelia Diamond RN) Outcome: Patient will Verbalize a Sense of Control and/or Acceptance of the Situation (Arcelia Diamond RN) Status: Ongoing (Arcelia Diamond RN) Outcome: Patient will Identify and Utilize Support Person (Arcelia Diamond RN) Status: Ongoing (Arcelia Diamond RN) Knowledge Deficit State: Actual (Arcelia Diamond RN) Related To: Surgical Procedures (Arcelia Diamond RN) Goal(s): Patient will Accurately Verbalize Understanding of Plan of Care and Treatment; Patient and Family will Accurately Verbalize Understanding of the Disease Process (Arcelia Diamond RN) Interventions: Assess Motivation and Willingness of Patient/Family to Learn; Assess Preferred Learning Mode: One to One Instruction, Reading, Videos, Group Discussion or Demonstration; Assess Barriers to Learning: Pain, Emotional State, Language Barrier, Cognitive Impairment, Visual or Hearing Deficits; Assess Patient and Family Knowledge of Disease Process, Medications and Treatment; Discuss Therapy and/or Treatment Options, Describe Rationale Behind Management, Therapy and Treatment Recommendations; Instruct Patient and Family on Signs and Symptoms to Report; Instruct Patient and Family on Medication Effects and Side Effects; Provide Appropriate and Timely Education Using Multiple Techniques; Provide Patient and Family with Support Group Information and Resources; Give Clear and Thorough Explanations and Demonstrations (Arcelia Diamond RN) Outcome: Patient and Family will Verbalize Understanding of Condition, Treatment and Signs and Symptoms to Report (Arcelia Diamond RN) Status: Ongoing (Arcelia Diamond RN) Outcome: Patient will Identify Perceived Learning Needs and Express Motivation to Learn (Arcelia Diamond RN) Status: Ongoing (Arcelia Diamond RN) Outcome: Patient will Verbalize Understanding of Desired Content, and/or Performs Desired Skill Prior to Discharge (Arcelia Diamond RN) Status: Ongoing (Arcelia Diamond RN) Infection State: Risk For (Arcelia Diamond RN) Related To: Surgical Procedures; Invasive Procedures (Arcelia Diamond RN) Goal(s): The Patient will be Free of Infection, Vital Signs Stable and Lab Work within Normal Parameters (Arcelia Diamond RN) Interventions: Instruct and Reinforce Proper Handwashing, Hygiene, and Care Techniques to Patient and Family; Monitor Vital Signs; Monitor Patient for the Following Signs of Infection: Fever, Abdominal Tenderness, Unusual Discharge; Monitor Aminiotic Fluid, Urine and Lochia for Color and Odor; Observe Wounds, Incisions and Invasive Line Sites for Redness, Drainage and Edema; Assess IV Sites per Hospital Policy; Monitor Lab and Test Results and Notify Provider of Abnormal Findings; Assess Nutritional Status and Promote Good Nutrition (Arcelia Diamond RN) Outcome: Patient will Remain Free of Infection (Arcelia Diamond RN) Status: Ongoing (Arcelia Diamond RN) Outcome: Infection will be Recognized Early to Allow for Prompt Treatment (Arcelia Diamond RN) Status: Ongoing (Arcelia Diamond RN) Outcome: Patient will have Vital Signs Within Expected Range (Arcelia Diamond RN) Status: Ongoing (Arcelia Diamond RN)
[2016-08-12] MEDS: IBUPROFEN 800 MG TABLET PO SCH ×2 (05:06→12:17)
[2016-08-12] MEDS: OXYCODONE-ACETAMINOPHEN 5-325 MG TABLET PO PRN (05:07)
--- NOTE | 2016-08-12 06:00 | L&D Current Admission ---
Current Admit Datetime Report Generated by CPN: 08/12/2016 06:00 ADMISSION INFORMATION Current Admit Date/Time: 08/10/2016 15:28 (08/10/2016 14:08:Tabitha Vidal RN) Reason for Admission: Repeat Section; Observation (08/10/2016 14:08:Tabitha Vidal RN) Chief Complaint: Uterine Cramping (08/10/2016 14:08:Arcelia Diamond RN) Medications During : Promethazine (Phenergan); Vitamin (08/10/2016 14:08:Tabitha Vidal RN) EGA per Dates: 39.4 (08/10/2016 14:08:QS system process) EGA per US: 144.3 (08/10/2016 14:08:QS system process) Method of Arrival: Ambulatory (08/10/2016 14:08:Tabitha Vidal RN) Admitted From: Home (08/10/2016 14:08:Tabitha Vidal RN) Reason for Induction: Not Applicable (08/10/2016 14:08:Tabitha Vidal RN) Records Available: No (08/10/2016 14:08:Tabitha Vidal RN) General Admission Information: Reviewed; Updated; Confirmed (08/10/2016 14:08:Tabitha iVdal RN) General Admission Reviewed By: Krystian Diamond RN (08/10/2016 14:08:Arcelia Diamond RN) BELONGINGS/ADVANCED DIRECTIVES Valuables/Personal Effects: None (08/10/2016 14:08:Tabitha Vidal RN) Disposition of Belongings: Sent Home (08/10/2016 14:08:Tabitha Vidal RN) Comments Regarding Disposition: see valuables (08/10/2016 14:08:Tabitha Vidal RN) Advance Direct for Healthcare: No, and Wants No Information (08/10/2016 14:08:Tabitha Vidal RN) Durable Power of Medical Assistant Supervisor: No (08/10/2016 14:08:Tabitha Vidal RN) Living Will: No (08/10/2016 14:08:Tabitha Vidal RN) Organ Donor: No (08/10/2016 14:08:Tabitha Vidal RN) Pt Rights Information Given: Yes (08/10/2016 14:08:Tabitha Vidal RN) Pt Understands Pt Rights: Yes (08/10/2016 14:08:Tabitha Vidal RN) LEARNING ASSESSMENT Knowledge Level: Understands L_D Process (08/10/2016 14:08:Tabitha Vidal RN) Barriers to Learning: None (08/10/2016 14:08:Tabitha Vidal RN) Learning Readiness: Motivated (08/10/2016 14:08:Tabitha Vidal RN) Learns Best By: Reading (08/10/2016 14:08:Tabitha Vidal RN) Learning Needs: Labor and Delivery Process; Pain Management; Symptoms to Report; Treatment Plan; Medication; Diagnosis; Nutrition; Equipment; Infant Care; Community Resources (08/10/2016 14:08:Tabitha Vidal RN) DOMESTIC VIOLANCE SCREENING Dom Viol Threatened/Hurt: No (08/10/2016 14:08:Tabitha Vidal RN) Hx of Abuse/Neglect past 2yrs: No (08/10/2016 14:08:Tabitha Vidal RN) Feel Unsafe Going Home: No (08/10/2016 14:08:Tabitha Vidal RN) Addt'l Observ Indicating Abuse: No (08/10/2016 14:08:Tabitha Vidal RN) Reason Unable to Complete Screen: N/A, Screen Completed (08/10/2016 14:08:Tabitha Vidal RN) Considered Personal Harm/Suicide: No (08/10/2016 14:08:Tabitha Vidal RN) NUTRITIONAL/FUNCTIONAL SCREENING Problem with Appetite >5 Days: No (08/10/2016 14:08:Tabitha Vidal RN) Chew/Swallow Difficulties: No (08/10/2016 14:08:Tabitha Vidal RN) Inappropriate Wt Gain/Loss: No (08/10/2016 14:08:Tabitha Vidal RN) Presence Skin Breakdown/Ulcer: No (08/10/2016 14:08:Tabitha Vidal RN) Special Diet: No (08/10/2016 14:08:Tabitha Vidal RN) Pt Requests Wood Machinist Apprentice Visit: No (08/10/2016 14:08:Tabitha Vidal RN) Hx of Any of the Following?: N/A (08/10/2016 14:08:Tabitha Vidal RN) New Diagnosis of: N/A (08/10/2016 14:08:Tabitha Vidal RN) Requires Assist w/Ambulation: No (08/10/2016 14:08:Tabitha Vidal RN) Uses Assist Device to Ambulate: No (08/10/2016 14:08:Tabitha Vidal RN) Pt Requires Help w/ADL's: No (08/10/2016 14:08:Tabitha Viadl RN)
--- NOTE | 2016-08-12 06:01 | L&D General Admission ---
General Admit Datetime Report Generated by CPN: 08/12/2016 06:00 INFORMATION Patient Age: 28 (05/09/2014 17:05:QS system process) EDC: 08/13/2016 00:00 (05/18/2014 14:30:Tabitha Vidal RN) EDC per Ultrasound: 08/10/2014 00:00 (05/18/2014 14:30:Kaycee Moran RN) LMP: 11/02/2013 00:00 (05/18/2014 14:30:Kaycee Moran RN) : 3 (05/18/2014 14:30:Kaycee Moran RN) Para: 1 (05/18/2014 14:30:Kaycee Moran RN) Term: 1 (05/18/2014 14:30:Kaycee Moran RN) : 0 (05/18/2014 14:30:Kaycee Moran RN) Spontaneous Abortions: 1 (05/18/2014 14:30:Kaycee Moran RN) Induced Abortions: 0 (05/18/2014 14:30:Sierra Davis) Livin (05/18/2014 14:30:Kaycee Moran RN) Cesareans: 1 (05/18/2014 14:30:Kaycee Moran RN) VBACs: 0 (05/18/2014 14:30:Kaycee Moran RN) Ectopic: 0 (05/18/2014 14:30:Sierra Davis) Multiple Births: 0 (05/18/2014 14:30:Kaycee Moran RN) Baby, Number in Womb: 1 (05/18/2014 14:30:Sierra Davis) CARE Primary Business Development Assistant: [facility] (05/18/2014 14:30:Kaycee Moran RN) Month of 1st Visit: 03/02/14 (05/18/2014 14:30:Kaycee Moran RN) Adequate Care: Yes (05/18/2014 14:30:Sierra Davis) Prepregnancy Weight (lb): 254 (05/18/2014 14:30:Kaycee Moran RN) Prepregnancy Weight (kg): 115.5 (05/18/2014 14:30:QS system process) Height (in): 67 (08/10/2016 20:24:QS system process) ALLERGIES Medication Allergy: Yes (05/18/2014 14:30:Joan Ribeiro RN) Medication Allergies: lorazepam/HI/N V, High fever (12/22/2015) (05/06/2016 01:07:QS system process) Latex Allergy: No Latex Allergies (05/18/2014 14:30:Joan Ribeiro RN) Food Allergies: None (05/18/2014 14:30:Joan Ribeiro RN) Environmental Allergies: None (05/18/2014 14:30:Joan Ribeiro RN) COMMUNICATION Primary Language: Israeli (05/18/2014 14:30:Kaycee Moran RN) Medical Tx Preferred Language: Israeli (05/18/2014 14:30:Kaycee Moran RN) Communication Barrier(s): None (05/18/2014 14:30:Kaycee Moran RN) DEMOGRAPHICS Address: [address] [place] [address], [place] [address] (06/17/2014 11:21:QS system process) Zipcode: [address] (05/09/2014 17:05:QS system process) County: [place] (05/18/2014 14:30:Arcelia Diamond RN) Home (05/06/2016 01:07:QS system process) SSN: [id number] (05/09/2014 17:05:QS system process) Next of Kin Name: HARRY SHIPLEY (05/09/2014 17:05:QS system process) Next of Kin (05/09/2014 17:05:QS system process) Next of Kin Relationship: [place] (05/09/2014 17:05:QS system process) Date of : 1985 (05/09/2014 17:05:QS system process) Marital Status: Single (05/09/2014 17:05:QS system process) Sex: Female (05/09/2014 17:05:QS system process) Race: (05/09/2014 17:05:QS system process) Ethnicity: Non- or (05/18/2014 14:53:QS system process) Taoism: None (07/21/2014 15:57:QS system process) FOB Involved: No (05/18/2014 14:30:Arcelia Diamond RN) DRUG AND ALCOHOL USE Alcohol: No (05/18/2014 14:30:Kaycee Moran RN) Cigarettes: Current Everyday Smoker. [id number] (05/18/2014 14:30:Kaycee Moran RN) Marijuana: No (05/18/2014 14:30:Kaycee Moran RN) Marijuana Comments: Pt reports smoking marijuana until finding out she was (05/18/2014 14:30:Joan Ribeiro RN) Cocaine: No (05/18/2014 14:30:Kaycee Moran RN) Other Illicit Drugs: No (05/18/2014 14:30:Kaycee Moran RN) VACCINE HISTORY Influenza Vaccine: No (05/18/2014 14:30:Kaycee Moran RN) Pneumococcal Vaccine: No (05/18/2014 14:30:Kaycee Moran RN) Tetanus Vaccine: Uncertain (05/18/2014 14:30:Kaycee Moran RN) Tdap Vaccine: Yes (05/18/2014 14:30:Kayceeaudra Moran RN) Tdap Date: 05/17/14 (05/18/2014 14:30:Kaycee Moran RN) Hepatitis B Vaccine: Yes (05/18/2014 14:30:Kayceeaudra Moran RN) Snack Steward: [facility] (05/18/2014 14:30:Joan Ribeiro RN) Feeding Preference: Breast (05/18/2014 14:30:Sarah Avery RN) Benefit of Breast Feed Discussed: Yes (05/18/2014 14:30:Sierra Davis) Circumcision: N/A (05/18/2014 14:30:Arcelia Diamond RN) Classes Attended: No (05/18/2014 14:30:Arcelia Diamond RN) Tubal Ligation: No (05/18/2014 14:30:Kaycee Moran RN) Pain Management Plans: None (05/18/2014 14:30:Kaycee Moran RN) Plans for Labor and Delivery: None (05/18/2014 14:30:Kaycee Moran RN) Support Person: HARRY SHIPLEY (05/18/2014 14:30:Kaycee Moran RN) Support Person Relationship: Mother (05/18/2014 14:30:Kaycee Moran RN) Cultural/Spritual Practice: No (05/18/2014 14:30:Kaycee Moran RN) LIVING SITUATION/DISCHARGE PLAN Living Arrangements: Apartment (05/18/2014 14:30:Kaycee Moran RN) Adequate Access to:: Electric; Heat; Refrigeration; Plumbing/Running water; Phone; Transportation (05/18/2014 14:30:Kaycee Moran RN) WIC Program: Yes (05/18/2014 14:30:Kaycee Moran RN) Discharge Head Of Visual Merchandising Person: MOTHER (05/18/2014 14:30:Kaycee Moran RN) Person to Help after Discharge: MOTHER (05/18/2014 14:30:Kaycee Moran RN) Currently Using Commun Resources: Yes (05/18/2014 14:30:Sierra Davis) Outside Agency/Payroll Administrator: Yes (05/18/2014 14:30:Kaycee Moran RN) Specify Agency/ Payroll Administrator: [employer], ENGRAVER [employer] FROM HEALTH DEPT (05/18/2014 14:30:Kaycee Moran RN) Car Seat for Discharge: Yes (05/18/2014 14:30:Kaycee Moran RN) Adoption Requested: No (05/18/2014 14:30:Sierra Davis) Pt Contact w/ Post : N/A (05/18/2014 14:30:Sierra Davis) LABS Blood Type: A Positive (05/18/2014 14:30:Arcelia Diamond RN) Antibody Screen: negative (05/18/2014 14:30:Arcelia Diamond RN) Rho(G) this : Not Applicable (05/18/2014 14:30:Arcelia Diamond RN) Hemoglobin: 10.9 L (08/11/2016 05:54:QS system process) Hematocrit: 34.7 L (08/11/2016 05:54:QS system process) MCV: 84 (08/11/2016 05:54:QS system process) Group Beta Strep: unknown (05/18/2014 14:30:Sarah Avery RN) HIV Exposure Test: Negative (05/18/2014 14:30:Sarah Avery RN) HIV Results: NEGATIVE (08/10/2016 14:54:QS system process) Rubella: NEGATIVE NEGATIVE IF LESS THAN OR EQUAL TO 9.99 IU/mL POSITIVE IF GREATER THAN OR EQUAL TO 10.0 IU/mL (08/10/2016 14:54:QS system process) Rubella Titer: 5.82 (08/10/2016 14:54:QS system process) OB/PREVIOUS HISTORY LMP: 11/02/2013 00:00 (05/18/2014 14:30:Kaycee Moran RN) Previous Procedures: Ultrasound (05/18/2014 14:30:Sierra Davis) Current Procedures: Ultrasound; NST (05/18/2014 14:30:Sierra Davis) History of Previous : Yes (05/18/2014 14:30:Kaycee Moran RN) History of Gestational Diabetes: No (05/18/2014 14:30:Kyacee Moran RN) History of PIH: Yes (05/18/2014 14:30:Kaycee Moran RN) History of Incompetent Cervix: No (05/18/2014 14:30:Kaycee Moran RN) History of Placenta Previa/Abrup: No (05/18/2014 14:30:Kaycee Moran RN) History of Macrosomia: No (05/18/2014 14:30:Kaycee Moran RN) History of IUGR: No (05/18/2014 14:30:Kaycee Moran RN) History of Hemorrhage: No (05/18/2014 14:30:Kaycee Moran RN) History of Loss/Stillborn: No (05/18/2014 14:30:Kaycee Moran RN) History of : No (05/18/2014 14:30:Kaycee Moran RN) History of D (Rh) Sensitization: No (05/18/2014 14:30:Kaycee Moran RN) History Recurrent Loss/Stillborn: No (05/18/2014 14:30:Kaycee Moran RN) History Depression/PP Depression: No (05/18/2014 14:30:Kaycee Moran RN) History of Uterine Anomaly/RAJ: No (05/18/2014 14:30:Kaycee Moran RN) History of Infertility: No (05/18/2014 14:30:Kaycee Moran RN) History of ART Treatment: No (05/18/2014 14:30:Kaycee Moran RN) History of RAJ: No (05/18/2014 14:30:Kaycee Moran RN) Comments Obstetrical History: G1-SAB G2-TERM, C/S, Preeclampsia G3-CURRENT (05/18/2014 14:30:Joan Ribeiro RN) MEDICAL HISTORY Med Hx Diabetes: No (05/18/2014 14:30:Kaycee Moran RN) Med Hx Hypertension: Yes (05/18/2014 14:30:Kaycee Moran RN) Med Hx Heart Disease: No (05/18/2014 14:30:Kaycee Moran RN) Med Hx Autoimmune Disorder: No (05/18/2014 14:30:Kaycee Moran RN) Med Hx Kidney Disease/UTI: No (05/18/2014 14:30:Kaycee Moran RN) Med Hx Neurologic/Epilepsy: No (05/18/2014 14:30:Kaycee Moran RN) Med Hx Psychiatric Disorders: Yes (05/18/2014 14:30:Kaycee Moran RN) Med Hx Hepatitis/Liver Disease: No (05/18/2014 14:30:Kaycee Moran RN) Med Hx Varicosities/Phlebitis: No (05/18/2014 14:30:Kaycee Moran RN) Med Hx Thyroid Dysfunction: No (05/18/2014 14:30:Kaycee Moran RN) Med Hx Trauma/Violence: No (05/18/2014 14:30:Kaycee Moran RN) Med Hx Blood Transfusion: No (05/18/2014 14:30:Kaycee Moran RN) Med Hx Pulmonary (Asthma,TB): Yes (05/18/2014 14:30:Kaycee Moran RN) Med Hx Breast: No (05/18/2014 14:30:Kaycee Moran RN) Med Hx UNIT OPERATOR Surgery: No (05/18/2014 14:30:Kaycee Moran RN) Med Hx Hospitalization/Surgery: Yes (05/18/2014 14:30:Kaycee Moran RN) Med Hx Anesthetic Complications: No (05/18/2014 14:30:Kaycee Moran RN) Med Hx Abnormal Pap Smear: No (05/18/2014 14:30:Kaycee Moran RN) Other Medical Diseases: No (05/18/2014 14:30:Kaycee Moran RN) Med Hx Significant Family Hx: No (05/18/2014 14:30:Kaycee Moran RN) Details of Med/Surg Hx: ASTHMA, ON MEDICATIONS HX SCHIZOPHRENIA, BIPOLAR CYST REMOVED FROM BREAST (05/18/2014 14:30:Kaycee Moran RN) INFECTIOUS HISTORY Inf Hx Gonorrhea: No (05/18/2014 14:30:Kaycee Moran RN) Inf Hx Chlamydia: No (05/18/2014 14:30:Kaycee Moran RN) Inf Hx Syphilis: No (05/18/2014 14:30:Kaycee Moran RN) Inf Hx HIV/AIDS: No (05/18/2014 14:30:Kaycee Moran RN) Inf Hx Human Papilloma Virus: No (05/18/2014 14:30:Kaycee Moran RN) Inf Hx Pt/Partner Genital Herpes: No (05/18/2014 14:30:Kaycee Moran RN) Inf Hx Tuberculosis/Exposure: No (05/18/2014 14:30:Kaycee Moran RN) Inf Hx Hepatitis B,C: No (05/18/2014 14:30:Kaycee Moran RN) Inf Hx Rash or Viral Illness: No (05/18/2014 14:30:Kaycee Moran RN) GENETIC HISTORY Gen Hx Age >=35 at YURY: Unknown (05/18/2014 14:30:Kaycee Moran RN) Gen Hx Thalassemia: No (05/18/2014 14:30:Kaycee Moran RN) Gen Hx Congenital Heart Defect: No (05/18/2014 14:30:Kaycee Moran RN) Gen Hx Neural Tube Defect: No (05/18/2014 14:30:Kaycee Moran RN) Gen Hx Down's Syndrome: No (05/18/2014 14:30:Kaycee Moran RN) Gen Hx Jorge-Sachs: No (05/18/2014 14:30:Kaycee Moran RN) Gen Hx Era: No (05/18/2014 14:30:Kaycee Moran RN) Gen Hx Familial Dysautonomia: No (05/18/2014 14:30:Kaycee Moran RN) Gen Hx Sickle Cell Disease/Trait: No (05/18/2014 14:30:Kaycee Moran RN) Gen Hx Hemophilia/Blood Disorder: No (05/18/2014 14:30:Kaycee Moran RN) Gen Hx Muscular Dystrophy: No (05/18/2014 14:30:Kaycee Moran RN) Gen Hx Cystic Fibrosis: No (05/18/2014 14:30:Kaycee Moran RN) Gen Hx Huntingtons Chorea: No (05/18/2014 14:30:Kaycee Moran RN) Gen Hx Mental Retardation/Autism: No (05/18/2014 14:30:Kaycee Moran RN) Gen Hx Tested for Fragile X: No (05/18/2014 14:30:Kaycee Moran RN) Gen Hx Other Inher/Chromosomal: No (05/18/2014 14:30:Kaycee Moran RN) Gen Hx Maternal Metabolic DO: No (05/18/2014 14:30:Kaycee Moran RN) Gen Hx Pt Father or FOB Defect: No (05/18/2014 14:30:Kaycee Moran RN) Gen Hx Other Genetic History: No (05/18/2014 14:30:Kaycee Moran RN) Gen Hx Drugs/Meds since LMP: No (05/18/2014 14:30:Kaycee Moran RN)
--- NOTE | 2016-08-12 06:15 | L&D Care Plan ---
LD CARE PLANS Datetime Report Generated by CPN: 08/12/2016 06:15 Datetime: 08/10/2016 16:30 Pain State: Actual (Arcelia Diamond RN) Related To: Labor and Delivery Process; Surgical Procedure; Post (Arcelia Diamond RN) Goal(s): Patients Pain will be Assessed and Managed; Patient will Verbalize Adequate Relief of Pain or the Ability to [place] with Current Pain (Arcelia Diamond RN) Interventions: Assess Pain Severity on Scale of 0 (None) to 5 (Severe); Assess Type, Location and Intensity of Pain Each Time Client Reports Discomfort and Notify Provider if Unusal Pain Develops; Encourage Proper Breathing and Relaxation Techniques; Offer Alternatives Such as Repositioning, Calm Environment, Massages, Diversional Activities, Ice Pack, Splinting, and Ambulation; Administer Analgesics as Ordered; Assist with Epidural Placement as Appropriate; Evaluate Therapeutic Effectiveness of Medication and Treatments (Arcelia Diamond RN) Outcome: Patient will Report Absence or Relief of Pain Consistent with Established Pain Goal (Arcelia Diamond RN) Status: Ongoing (Arcelia Diamond RN) Outcome: Patient will have a Decrease in Signs and Symptoms of Discomfort (Arcelia Diamond RN) Status: Ongoing (Arceila Diamond RN) Status: Ongoing (Arcelia Diamond RN) Anxiety State: Risk For (Arcelia Diamond RN) Related To: Surgical Procedure; Fear of Unknown; Significant Life Event (Arcelia Diamond RN) Goal(s): Patient will have Decreased Anxiety and be able to Function at Acceptable Levels (Arcelia Diamond RN) Interventions: Assess Verbal and Nonverbal Behavioral Indicators of Anxiety; Assist Patient to Identify and Verbalize Symptoms of Anxiety; Identify and Demonstrate Techniques to Control Anxiety; Assist Patient with Coping Mechanisms to Manage Anxiety; Provide Theraputic Touch for the Patient; Explain to Patient, Using a Calm Reassuring Approach and Nonmedical Terms, All Activities, Procedures, and Concerns; Instruct Patient and Family about Post Discharge Care, Limitations, Symptoms to Report and Resources Available (Arcelia Diamond RN) Outcome: Patient will Identify, Verbalize and Demonstrate Techniques to Control Anxiety (Arcelia Diamond RN) Status: Ongoing (Arcelia Diamond RN) Outcome: Patient's Posture, Facial Expressions, Gestures and Activity Level will Reflect Decreased Anxiety (Arcelia Diamond RN) Status: Ongoing (Arcelia Diamond RN) Outcome: Patient will Verbalize a Sense of Control and/or Acceptance of the Situation (Arcelia Diamond RN) Status: Ongoing (Arcelia Diamond RN) Outcome: Patient will Identify and Utilize Support Person (Arcelia Diamond RN) Status: Ongoing (Arcelia Diamond RN) Knowledge Deficit State: Actual (Arcelia Diamond RN) Related To: Surgical Procedures (Arcelia Diamodn RN) Goal(s): Patient will Accurately Verbalize Understanding of Plan of Care and Treatment; Patient and Family will Accurately Verbalize Understanding of the Disease Process (Arcelia Diamond RN) Interventions: Assess Motivation and Willingness of Patient/Family to Learn; Assess Preferred Learning Mode: One to One Instruction, Reading, Videos, Group Discussion or Demonstration; Assess Barriers to Learning: Pain, Emotional State, Language Barrier, Cognitive Impairment, Visual or Hearing Deficits; Assess Patient and Family Knowledge of Disease Process, Medications and Treatment; Discuss Therapy and/or Treatment Options, Describe Rationale Behind Management, Therapy and Treatment Recommendations; Instruct Patient and Family on Signs and Symptoms to Report; Instruct Patient and Family on Medication Effects and Side Effects; Provide Appropriate and Timely Education Using Multiple Techniques; Provide Patient and Family with Support Group Information and Resources; Give Clear and Thorough Explanations and Demonstrations (Arcelia Diamond RN) Outcome: Patient and Family will Verbalize Understanding of Condition, Treatment and Signs and Symptoms to Report (Arcelia Diamond RN) Status: Ongoing (Arcelia Diamond RN) Outcome: Patient will Identify Perceived Learning Needs and Express Motivation to Learn (Arcelia Diamond RN) Status: Ongoing (Arcelia Diamond RN) Outcome: Patient will Verbalize Understanding of Desired Content, and/or Performs Desired Skill Prior to Discharge (Arcelia Diamond RN) Status: Ongoing (Arcelia Diamond RN) Infection State: Risk For (Arcelia Diamond RN) Related To: Surgical Procedures; Invasive Procedures (Arcelia Diamond RN) Goal(s): The Patient will be Free of Infection, Vital Signs Stable and Lab Work within Normal Parameters (Arcelia Diamond RN) Interventions: Instruct and Reinforce Proper Handwashing, Hygiene, and Care Techniques to Patient and Family; Monitor Vital Signs; Monitor Patient for the Following Signs of Infection: Fever, Abdominal Tenderness, Unusual Discharge; Monitor Aminiotic Fluid, Urine and Lochia for Color and Odor; Observe Wounds, Incisions and Invasive Line Sites for Redness, Drainage and Edema; Assess IV Sites per Hospital Policy; Monitor Lab and Test Results and Notify Provider of Abnormal Findings; Assess Nutritional Status and Promote Good Nutrition (Arcelia Diamond RN) Outcome: Patient will Remain Free of Infection (Acrelia Diamond RN) Status: Ongoing (Arcelia Diamond RN) Outcome: Infection will be Recognized Early to Allow for Prompt Treatment (Arcelia Diamond RN) Status: Ongoing (Arcelia Diamond RN) Outcome: Patient will have Vital Signs Within Expected Range (Arcelia Diamond RN) Status: Ongoing (Arcelia Diamond RN)
[2016-08-12] MEDS: PRENATAL VITAMIN W-O CA NO5/FE FUMARATE/FA CAPSULE PO SCH (09:40)
[2016-08-12] MEDS: DOCUSATE SODIUM 100 MG CAPSULE PO SCH (09:40)
[2016-08-12] MEDS: ALBUTEROL SULFATE 0.083% NEB 2.5 MG/3 ML AMPUL NEB PRN (10:17)
[2016-08-12] MEDS ORDERED: METRONIDAZOLE 500 MG TABLET PO ONE (11:15)
[2016-08-12 11:46] LABS: HEMATOCRIT 33.6 % (36.0-47.0); HEMOGLOBIN 10.9 g/dL (12.0-15.5); HGB HCT DIFFERENCE -0.9; MEAN CORPUSCULAR HEMOGLOBIN 27.1 pg (27.0-33.4); MEAN CORPUSCULAR HGB CONC 32.3 g/dL (32.0-36.0); MEAN CORPUSCULAR VOLUME 84 fl (80-97); RED BLOOD COUNT 4.01 10^6/uL (3.72-5.28); RED CELL DISTRIBUTION WIDTH 14.9 % (11.5-14.0); WHITE BLOOD COUNT 8.5 10^3/uL (4.0-10.5)
[2016-08-12] MEDS ORDERED: MEDROXYPROGESTERONE ACET INJ 150 MG/1 ML VIAL IM ONE (11:59)
--- NOTE | 2016-08-12 12:04 | PDOC DISCHARGE SUMMARY ---
Final Diagnosis Discharge Date: 08/12/16 - Final Diagnosis (1) Status post repeat low transverse section Is this a current diagnosis for this admission?: Yes (2) Term delivered Is this a current diagnosis for this admission?: Yes (3) Asthma Is this a current diagnosis for this admission?: Yes (4) IUGR (intrauterine growth retardation), delivered, current hospitalization Is this a current diagnosis for this admission?: Yes (5) Mental health disorder Is this a current diagnosis for this admission?: Yes (6) Obesity compl pregn//puerperp Is this a current diagnosis for this admission?: Yes (7) Smoker Is this a current diagnosis for this admission?: Yes (8) Trichomonas infection Is this a current diagnosis for this admission?: Yes Discharge Data - Discharge Medication Home Medications: Pnv #116/Iron Fumarate/FA/Dha [Expecta Combo Pack] 1 tab PO PRN PRN Albuterol Sulfate [Ventolin 0.083% Neb 2.5 mg/3 mL Ampul] 2.5 mg NEB Q4HP PRN # 0 vial.neb 08/12/16 Docusate Sodium [Colace 100 mg Capsule] 100 mg PO BID #60 capsule 08/12/16 Ferrous Sulfate [Feosol 325 mg Tablet] 325 mg PO BID #60 tablet 08/12/16 Ibuprofen [Motrin 800 mg Tablet] 800 mg PO Q8HP PRN #90 tablet 08/12/16 Oxycodone HCl/Acetaminophen [Percocet 5-325 mg Tablet] 1 tab PO Q4HP PRN #30 tablet 08/12/16 Reason(s) for Admission: Ceasarean Section-Repeat, Status Procedures: Ultrasound Intrapartum Procedure(s): : Low Cervical, Vertical - Data Baby 1 Female at 1 minute: 8 at 5 minutes: 9 Weight: 2245 kg - Diagnosis Test Laboratory: Temp Pulse Resp BP Pulse Ox 97.8 F 73 19 120/63 99 08/12/16 08:27 08/12/16 08:27 08/12/16 08:27 08/12/16 08:27 08/12/16 08:27 08/10/16 08/10/16 08/11/16 13:49 14:54 05:54 RBC 4.45 4.15 Hgb 11.8 L 10.9 L Hct 36.8 34.7 L Urine Opiates Screen NEGATIVE - Discharge information/Instructions Discharge Activity: Activity As Tolerated, Balance Activity w/Rest, No Driving, No Lifting Over 10 Pounds, No Lifting/Push/Pulling, Pelvic Rest, Slowly Increase Activity, No tub bath Discharge Diet: As Tolerated Disposition: HOME, SELF-CARE Follow up with: [facility] in: 1, Weeks - incision check Physical Exam (OB) Vital Signs: Temp Pulse Resp BP Pulse Ox 97.8 F 73 19 139/83 H 99 08/12/16 09:34 08/12/16 09:34 08/12/16 09:34 08/12/16 09:34 08/12/16 09:34 Intake & Output 08/11/16 08/12/16 08/13/16 06:59 06:59 06:59 Output Total 1300 Balance -1300 Weight 125.25 kg - General General Appearance: Appears well In distress: None - Dressing Removed: No - opsite dressing Incision: Dressing Closure Type: op site - Lochia Lochia Amount: Scant < 10 ml Lochia Color: Rubra/Red - Abdomen Description: Soft, Round Hernia Present: No Fundal Description: Firm, Midline Fundal Height: u/u - u/2 - Respiratory Respiratory Status: No respiratory distress Respiratory Notes: clear bilaterally - Abdominal Distension: No distension - Genitourinary Genitourinary Note: will treat with 2g of flagyl po x1 for trichomonas infection prior to discharge - Extremities Upper extremity: Normal inspection Lower extremities: Normal inspection - Neurological Cognition: Normal Orientation: AAOx4 - Psychological Associated symptoms: Normal affect, Normal mood
[2016-08-12 12:11] VITALS: BP 135/82
== END 2016-08-12 13:52 | disposition home or self-care (01) | DRG 765 ==
LOC: LC 13:41 → LR 15:48 → 2S 20:15
PROVIDERS: ADMIT Specialist; ATTEND Specialist
PROC: 10D00Z1 Extraction of Products of Conception, Low, Open Approach (ICD-10-PCS; principal; 2016-08-10)
PROC: 4A1HXCZ Monitoring of Products of Conception, Cardiac Rate, External Approach (ICD-10-PCS; 2016-08-10)
DX: O34.219 Maternal care for unspecified type scar from previous cesarean delivery (principal); Z68.41 Body mass index [BMI] 40.0-44.9, adult; O98.32 Other infections with a predominantly sexual mode of transmission complicating childbirth; O99.89 Other specified diseases and conditions complicating pregnancy, childbirth and the puerperium; N73.6 Female pelvic peritoneal adhesions (postinfective); O69.81X0 Labor and delivery complicated by cord around neck, without compression, not applicable or unspecified; O36.5930 Maternal care for other known or suspected poor fetal growth, third trimester, not applicable or unspecified; O99.334 Smoking (tobacco) complicating childbirth; F17.210 Nicotine dependence, cigarettes, uncomplicated; O99.344 Other mental disorders complicating childbirth; F31.9 Bipolar disorder, unspecified; F20.9 Schizophrenia, unspecified; O76 Abnormality in fetal heart rate and rhythm complicating labor and delivery; O77.0 Labor and delivery complicated by meconium in amniotic fluid; O99.52 Diseases of the respiratory system complicating childbirth; J45.909 Unspecified asthma, uncomplicated; O99.214 Obesity complicating childbirth; A59.9 Trichomoniasis, unspecified; E66.9 Obesity, unspecified; Z3A.39 39 weeks gestation of pregnancy; Z37.0 Single live birth
CPT/HCPCS: 1961; 36415; 76815; 80053; 80307; 81005; 83615; 84550; 85025; 85027; 86592; 86701; 86762; 86850; 86900; 86901; 87210; 87340; 87491; 87591; 88307; 94640; 94799; J0131; J0690; J1050; J1100; J1170; J1200; J1885; J2250; J2370; J2405; J2550; J2590; J2765; J3010; J3490; J7620

== ENCOUNTER 2017-01-20 17:34 | Emergency (ER) | payer MEDICAID ==
--- NOTE | 2017-01-20 18:56 | ER Document Report ---
ED Medical Screen (RME) - General Chief Complaint: Abscess Stated Complaint: LUMP IN RIGHT BREAST Time Seen by Provider: 01/20/17 18:43 Mode of Arrival: Ambulatory Information source: Patient Notes: 31-year-old female presents with complaints of breast lump that popped up only a few days ago, patient admits it is tender to palpation I have greeted and performed a rapid initial assessment of this patient. A comprehensive ED assessment and evaluation of the patient, analysis of test results and completion of the medical decision making process will be conducted by additional ED providers. PHYSICAL EXAMINATION: GENERAL: Well-appearing, well-nourished and in no acute distress. HEAD: Atraumatic, normocephalic. EYES: Pupils equal round extraocular movements intact, conjunctiva are normal. ENT: Nares patent NECK: Normal range of motion LUNGS: No respiratory distress Musculoskeletal: Normal range of motion NEUROLOGICAL: Normal speech, normal gait. PSYCH: Normal mood, normal affect. SKIN: Right Areola mass 3 x 5 cm tender to palpation TRAVEL OUTSIDE OF THE [place] IN LAST 30 DAYS: No - Related Data Allergies/Adverse Reactions: lorazepam [From Ativan] Adverse Reaction (Mild, Verified 01/20/17 17:42) N&V, High fever Past Medical History - Social History Family history: Reviewed & Not Pertinent - Past Medical History Cardiac Medical History: Reports: Hx Hypertension - no meds Pulmonary Medical History: Reports: Hx Asthma - no ER visit Neurological Medical History: Renal/ Medical History: Reports: Hx Ovarian Cysts. Denies: Hx Peritoneal Dialysis Musculoskeltal Medical History: Reports Hx Arthritis - hands Skin Medical History: Reports Hx Cellulitis Psychiatric Medical History: Reports: Hx Bipolar Disorder, Hx Schizophrenia Past Surgical History: Reports: Hx Breast Surgery - L cyst, multiple left I&Ds, Hx Section - x2 - Immunizations Immunizations up to date: Yes Hx Diphtheria, Pertussis, Tetanus Vaccination: Yes Physical Exam - Vital signs Vitals: Temp Pulse Resp BP Pulse Ox 98.1 F 75 16 144/84 H 97 01/20/17 17:39 01/20/17 17:39 01/20/17 17:39 01/20/17 17:39 01/20/17 17:39 Course - Vital Signs Vital signs: Temp Pulse Resp BP Pulse Ox 98.1 F 75 16 144/84 H 97 01/20/17 17:39 01/20/17 17:39 01/20/17 17:39 01/20/17 17:39 01/20/17 17:39
--- NOTE | 2017-01-20 20:22 | ER Document Report ---
ED Breast Problem - General Chief Complaint: Abscess Stated Complaint: LUMP IN RIGHT BREAST Time Seen by Provider: 01/20/17 18:43 Mode of Arrival: Ambulatory Information source: Patient Notes: Female presents to ED for a complaint of a breast lump that popped up a couple days ago is very tender to palpation red has a history of abscesses. This abscess is just 9:00 to the nipple. I consult to Dr. Ramírez to do an ultrasound of the abscess and he states it looks like it might be going into the milk duct. TRAVEL OUTSIDE OF THE [place] IN LAST 30 DAYS: No - HPI Patient complains to provider of: Lump, Swelling, Tenderness Onset: Other - 2-3 days Onset/Duration: Gradual, Worse Quality of pain: Sharp Severity: Severe Pain Level: 5 Discharge description: None Associated Symptoms: Other - Probable abscess to the 9 o'clock position on the right breast - Related Data Allergies/Adverse Reactions: lorazepam [From Ativan] Adverse Reaction (Mild, Verified 01/20/17 17:42) N&V, High fever Past Medical History - General Information source: Patient - Social History Smoking Status: Current Every Day Smoker Chew tobacco use (# tins/day): No Frequency of alcohol use: None Drug Abuse: None Family History: Arthritis, CAD, DM, Hyperlipidemia, Hypertension, Malignancy Patient has suicidal ideation: No Patient has homicidal ideation: No - Past Medical History Cardiac Medical History: Reports: Hx Hypertension - no meds Pulmonary Medical History: Reports: Hx Asthma - no ER visit Neurological Medical History: Renal/ Medical History: Reports: Hx Ovarian Cysts. Denies: Hx Peritoneal Dialysis Musculoskeltal Medical History: Reports Hx Arthritis - hands Skin Medical History: Reports Hx Cellulitis Psychiatric Medical History: Reports: Hx Bipolar Disorder, Hx Schizophrenia Past Surgical History: Reports: Hx Breast Surgery - L cyst, multiple left I&Ds, Hx Section - x2 - Immunizations Immunizations up to date: Yes Hx Diphtheria, Pertussis, Tetanus Vaccination: Yes Hx Pneumococcal Vaccination: 04/22/14 Review of Systems - Review of Systems Constitutional: No symptoms reported EENT: No symptoms reported Cardiovascular: No symptoms reported Respiratory: No symptoms reported Gastrointestinal: No symptoms reported Genitourinary: No symptoms reported Female Genitourinary: No symptoms reported Musculoskeletal: No symptoms reported Skin: Other - Tender lymph to the 9 o'clock position on the right breast just beside the nipple Hematologic/Lymphatic: No symptoms reported Neurological/Psychological: No symptoms reported -: Yes All other systems reviewed and negative Physical Exam - Vital signs Vitals: Temp Pulse Resp BP Pulse Ox 98.1 F 75 16 144/84 H 97 01/20/17 17:39 01/20/17 17:39 01/20/17 17:39 01/20/17 17:39 01/20/17 17:39 Interpretation: Normal - General General appearance: Appears well, Alert - HEENT Head: Normocephalic, Atraumatic Eyes: Normal Pupils: PERRL - Respiratory Respiratory status: No respiratory distress Chest status: Nontender Breath sounds: Normal Chest palpation: Normal - Cardiovascular Rhythm: Regular Heart sounds: Normal auscultation Murmur: No - Abdominal Inspection: Normal Distension: No distension Bowel sounds: Normal Tenderness: Nontender Organomegaly: No organomegaly - Back Back: Normal, Nontender - Extremities General upper extremity: Normal inspection, Nontender, Normal color, Normal ROM , Normal temperature General lower extremity: Normal inspection, Nontender, Normal color, Normal ROM , Normal temperature, Normal weight bearing. No: Zuri's sign - Neurological Neuro grossly intact: Yes Cognition: Normal Orientation: AAOx4 Solano Coma Scale Eye Opening: Spontaneous Sujatha Coma Scale Verbal: Oriented Sujatha Coma Scale Motor: Obeys Commands Solano Coma Scale Total: 15 Speech: Normal Motor strength normal: LUE, RUE, LLE, RLE Sensory: Normal - Psychological Associated symptoms: Normal affect, Normal mood - Skin Skin Temperature: Warm Skin Moisture: Dry Skin Color: Normal Skin irregularity: Abscess - Right breast 9 o'clock position Irregularity with: Swelling, Tenderness, Warmth Course - Re-evaluation Re-evalutation: 01/20/17 21:12 Dr. Thurman for the abscess to the 9 o'clock position of the right breast. The abscesses right beside the nipple. Dr. Thurman came down and examined the patient stated he could treat this as an outpatient patient can be discharged home with Keflex and pain medication. He stated that she needs to do warm compresses to the area and to follow-up with him in the office. - Vital Signs Vital signs: Temp Pulse Resp BP Pulse Ox 98.1 F 75 16 144/84 H 97 01/20/17 17:39 01/20/17 17:39 01/20/17 17:39 01/20/17 17:39 01/20/17 17:39 Discharge - Discharge Clinical Impression: Abscess of breast, right Condition: Stable Disposition: HOME, SELF-CARE Additional Instructions: ABSCESS: You have an abscess (boil). This a pus-forming infection, usually due to staph. Some boils may be left to drain on their own, but most require lancing. From the time the tender lump first appears, it may be three or four days before the abscess is ready to oscar. Local heat and rest help at this stage of treatment. An antibiotic may prevent spread of the infection. Once the abscess is opened, packing may be placed into it. This is done so pus is not sealed inside by premature closure of the cavity. The packing will be removed at your follow-up visit or you may be advised to remove it yourself at home. Sometimes this packing must be replaced a few times during healing. The wound will heal with surprisingly little scar. Depending on the size and location of an abscess, healing can take one to four weeks. You may shower and wash the area around the incision site two or three times a day. Antibiotics may be prescribed, but are usually not necessary after an abscess has been drained. If you develop fever, chills, worsening pain, or increasing swelling in the area, call the doctor or return immediately. Epsom Salt Soaks Soak the wound area in a container of warm epsom salt water. If you can't get the wound area into a bucket or barraza, use a folded towel soaked in the epsom salt solution and apply to the area. Use clean hot tap water (about the temperature of a very warm bath), mixing in about one (1) teaspoon for every pint of water. Two gallon --> 16 teaspoons Epsom Salts One gallon --> 8 teaspoons Epsom Salts Two quarts --> 4 teaspoons Epsom Salts One quart --> 2 teaspoons Epsom Salts Soak the wound for about 20 minutes while gently moving it around in the water. Repeat this four (4) times a day. ORAL NARCOTIC MEDICATION: You have been given a prescription for pain control. This medication is a narcotic. It's best taken with food, as nausea can result if taken on an empty stomach. Don't operate machinery or drive within six hours of taking this medication. Do not combine this medicine with alcohol, or with any medication which can cause sedation (such as cold tablets or sleeping pills) unless you get permission from the physician. Narcotics tend to cause constipation. If possible, drink plenty of fluids and eat a diet high in fiber and fruits. CEPHALEXIN: The antibiotic you've been prescribed is a member of the cephalosporin class. This type of antibiotic covers a wide variety of infections, including those of the skin, lungs, and urinary tract. It's useful for staph infections. This antibiotic is slightly similar to the penicillin family. In rare cases , a person who is allergic to penicillin will also be allergic to this medication. If you have had a severe allergic reaction to penicillin, and have not taken this antibiotic since that time, notify your doctor. Antibiotics which cover many germs ("broad spectrum" antibiotics) are more likely to cause diarrhea or "yeast" infections. Women prone to vaginal yeast problems may suffer an attack after taking this antibiotic. In infants, oral thrush (white spots "stuck" on the cheek) or yeast diaper rash may result. See your doctor if these problems occur. Call at once if you develop itching, hives , shortness of breath, or lightheadedness. FOLLOW-UP CARE: Most simple abscesses will not require a follow up visit. If you had packing placed in the abscess, remove it as instructed by the physician. If you have been referred to a physician for follow-up care, call the physicians office for an appointment as you were instructed or within the next two days. If you experience worsening or a significant change in your symptoms, return to the Emergency Department at any time for re-evaluation. I will Dr. Thurman office in the morning to schedule a follow-up appointment for care of this abscess Prescriptions: Oxycodone HCl/Acetaminophen [Percocet 5-325 mg Tablet] 1 tab PO Q6HP PRN #7 tab PRN Reason: Cephalexin Monohydrate [Keflex 500 mg Capsule] 500 mg PO QID #20 capsule Forms: Elevated Blood Pressure, Smoking Cessation Education Referrals: TE HARRIS MD [Primary Care Provider] - Follow up as needed TE THURMAN MD [ACTIVE STAFF] - Follow up tomorrow
[2017-01-20] MEDS ORDERED: NORMAL SALINE 1000 ML 1,000 ML IV ONE (20:25)
[2017-01-20] MEDS ORDERED: NORMAL SALINE 1000 ML 1,000 ML IV PRN (20:27)
[2017-01-20] MEDS ORDERED: CEPHALEXIN 500 MG CAPSULE PO ONE (21:11)
[2017-01-20] MEDS ORDERED: OXYCODONE-ACETAMINOPHEN 5-325 MG TABLET PO ONE (21:11)
[2017-01-20 21:38] VITALS: BP 149/99
--- NOTE | 2017-01-20 21:39 | CONSULTATION REPORT E ---
Consultation Report NAME: BRANDO GRUBER : 1985 AGE: 31Y DATE: 01/20/2017 TO: TE THURMAN M.D. FROM: PRAVEEN KHAN Requesting Physician CHIEF COMPLAINT: Right breast abscess. REPORT OF CONSULTATION: The patient is a 31-year-old, -Chinese female well known to Dr. 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 She was seen in the emergency department. She was evaluated, found to have right breast tenderness. Bedside ultrasound by one of the emergency room physicians demonstrated an abscess. Surgery was consulted. PAST MEDICAL AND SURGICAL HISTORY: Can be found in history and physical documents. REVIEW OF SYSTEMS: Noncontributory. ALLERGIES: LORAZEPAM. PHYSICAL EXAMINATION: GENERAL: In no acute distress. BREAST: Right breast examined between the nipple and the right areola with tenderness, swelling, but no erythema. There is evidence of healed over drainage site right at the areolar border at the 9 o'clock position. The remainder of the breast is grossly unremarkable. The left breast consistent with multiple scars consistent with previous surgery. IMPRESSION: 1. 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 2. History of previous left breast abscesses drained several years ago. 3. Schizophrenia, bipolar disorder. 4. Smoker. PLAN: 1. Warm compresses. 2. To start p.o. antibiotics. 3. Return to [facility] for followup examination, ultrasound directed drainage procedure. 4. The patient also instructed to stop smoking. DICTATING PHYSICIAN: TE THURMAN M.D. [id number] PHY#: [id number] ID: [id number] JOB#: [id number] ACCT: [id number] cc:TE THURMAN M.D. >
== END 2017-01-20 21:38 | disposition home or self-care (01) ==
LOC: ER 17:34
DX: N61.1 Abscess of the breast and nipple (principal); F17.200 Nicotine dependence, unspecified, uncomplicated
CPT/HCPCS: 99283

== ENCOUNTER 2017-03-27 08:12 | Inpatient (IN) | payer MEDICAID ==
--- NOTE | 2017-03-27 08:48 | ER Document Report ---
ED General - General Chief Complaint: Abdominal Pain Stated Complaint: UPPER GASTRIC/CHEST PAIN Time Seen by Provider: 03/27/17 08:30 Mode of Arrival: Ambulatory Information source: Patient Notes: 31-year-old female presents with complaints of epigastric abdominal pain. Patient denies any fevers or chills admits nausea and vomiting. Peeping patient has been taking gabapentin which seems to resolve her pain. Patient notes that she was told she had gallbladder issues however she was recently and therefore cannot have intervention TRAVEL OUTSIDE OF THE [place] IN LAST 30 DAYS: No - HPI Onset: Last week Onset/Duration: Intermittent Quality of pain: Sharp Severity: Mild Pain Level: 1 Associated symptoms: Nausea, Vomiting Exacerbated by: Denies Relieved by: Denies Similar symptoms previously: Yes Recently seen / treated by doctor: Yes - Related Data Allergies/Adverse Reactions: lorazepam [From Ativan] Adverse Reaction (Mild, Verified 03/27/17 08:41) N&V, High fever Past Medical History - Social History Smoking Status: Never Smoker Cigarette use (# per day): No Chew tobacco use (# tins/day): No Smoking Education Provided: No Family History: Arthritis, CAD, DM, Hyperlipidemia, Hypertension, Malignancy - Past Medical History Cardiac Medical History: Reports: Hx Hypertension - no meds Pulmonary Medical History: Reports: Hx Asthma - no ER visit Neurological Medical History: Renal/ Medical History: Reports: Hx Ovarian Cysts. Denies: Hx Peritoneal Dialysis Musculoskeltal Medical History: Reports Hx Arthritis - hands Skin Medical History: Reports Hx Cellulitis Psychiatric Medical History: Reports: Hx Bipolar Disorder, Hx Schizophrenia Past Surgical History: Reports: Hx Breast Surgery - L cyst, multiple left I&Ds, Hx Section - x2 - Immunizations Immunizations up to date: Yes Hx Diphtheria, Pertussis, Tetanus Vaccination: Yes Hx Pneumococcal Vaccination: 04/22/14 Review of Systems - Review of Systems Notes: REVIEW OF SYSTEMS: CONSTITUTIONAL : Denies fever, chills, or sweats. Denies recent illness. EENT: Denies eye, ear, throat, or mouth pain or symptoms. Denies nasal or sinus congestion or discharge. Denies throat, tongue, or mouth swelling or difficulty swallowing. CARDIOVASCULAR: Denies chest pain. Denies palpitations or racing or irregular heart beat. Denies ankle edema. RESPIRATORY: Denies cough, cold, or chest congestion. Denies shortness of breath, difficulty breathing, or wheezing. GASTROINTESTINAL: Admits to abdominal pain nausea vomiting GENITOURINARY: Denies difficulty urinating, painful urination, burning, frequency, blood in urine, or discharge. FEMALE GENITOURINARY: Denies vaginal bleeding, heavy or abnormal periods, irregular periods. Denies vaginal discharge or odor. MUSCULOSKELETAL: Denies back or neck pain or stiffness. Denies joint pain or swelling. SKIN: Denies rash, lesions or sores. HEMATOLOGIC : Denies easy bruising or bleeding. LYMPHATIC: Denies swollen, enlarged glands. NEUROLOGICAL: Denies confusion or altered mental status. Denies passing out or loss of consciousness. Denies dizziness or lightheadedness. Denies headache. Denies weakness or paralysis or loss of use of either side. Denies problems with gait or speech. Denies sensory loss, numbness, or tingling. Denies seizures. PSYCHIATRIC: Denies anxiety or stress. Denies depression, suicidal ideation, or homicidal ideation. ALL OTHER SYSTEMS REVIEWED AND NEGATIVE. PHYSICAL EXAMINATION: GENERAL: Well-appearing, well-nourished and in no acute distress. HEAD: Atraumatic, normocephalic. EYES: Pupils equal round and reactive to light, extraocular movements intact, conjunctiva are normal. ENT: Nares patent, oropharynx clear without exudates. Moist mucous membranes. NECK: Normal range of motion, supple without lymphadenopathy LUNGS: Breath sounds clear to auscultation bilaterally and equal. No wheezes rales or rhonchi. HEART: Regular rate and rhythm without murmurs ABDOMEN: Soft, tender in the ruq Female : deferred Musculoskeletal: Normal range of motion, no pitting or edema. No cyanosis. NEUROLOGICAL: Cranial nerves grossly intact. Normal speech, normal gait. Normal sensory, motor exams PSYCH: Normal mood, normal affect. SKIN: Warm, Dry, normal turgor, no rashes or lesions noted. Dictation was performed using [employer] voice recognition software Physical Exam - Vital signs Vitals: Resp Pulse Ox 15 99 03/27/17 08:25 03/27/17 08:25 Course - Re-evaluation Re-evalutation: 03/27/17 10:21 Patient's ultrasound is consistent with cholelithiasis positive Alvarado sign on ultrasound, she does not have any acute signs of cholecystitis at this time however does have an elevated lipase of 420, Dr. Davis was consulted for evaluation of patient 03/27/17 11:12 Surgeon agrees with my evaluation he will admit the patient to his service - Vital Signs Vital signs: Temp Pulse Resp BP Pulse Ox 97.9 F 108 H 15 102/91 H 100 03/27/17 08:41 03/27/17 08:41 03/27/17 09:02 03/27/17 09:02 03/27/17 09:02 - Laboratory Result Diagrams: 03/27/17 08:25 03/27/17 08:25 Laboratory results interpreted by me: 03/27/17 03/27/17 03/27/17 08:25 08:25 09:40 MCH 26.4 L RDW 15.3 H Glucose 113 H Lipase 420.5 H Urine Protein 100 H Urine Ketones TRACE H Urine Urobilinogen 2.0 H Ur Leukocyte Esterase TRACE H - Diagnostic Test Radiology reviewed: Image reviewed, Reports reviewed Discharge - Discharge Clinical Impression: Gallstone pancreatitis Abdominal pain Qualifiers: Abdominal location: upper abdomen, unspecified Qualified Code(s): R10.10 - Upper abdominal pain, unspecified Condition: Stable Disposition: ADMITTED INPATIENT Admitting Provider: Surgicalist Unit Admitted: Surgical Floor
[2017-03-27] MEDS ORDERED: ONDANSETRON 4 MG TAB.RAPDIS PO ONE (08:56)
[2017-03-27 09:00] LABS: ABSOLUTE BASOPHILS # (AUTO) 0.1 10^3/uL (0.0-0.2); ABSOLUTE EOSINOPHILS # (AUTO) 0.2 10^3/uL (0.0-0.6); ABSOLUTE MONOCYTES (AUTO) 0.5 10^3/uL (0.1-1.4); ABSOLUTE NEUT (AUTO) 5.8 10^3/uL (1.7-8.2); BASOPHILS % (AUTO) 0.8 % (0-2); EOSINOPHILS % (AUTO) 2.2 % (0-6); HEMATOCRIT 38.8 % (36.0-47.0); HEMOGLOBIN 12.7 g/dL (12.0-15.5); HGB HCT DIFFERENCE -0.7; LYMPHOCYTES % (AUTO) 23.7 % (13-45); MEAN CORPUSCULAR HEMOGLOBIN 26.4 pg (27.0-33.4); MEAN CORPUSCULAR HGB CONC 32.8 g/dL (32.0-36.0); MEAN CORPUSCULAR VOLUME 80 fl (80-97); MONOCYTES % (AUTO) 6.4 % (3-13); RED BLOOD COUNT 4.83 10^6/uL (3.72-5.28); RED CELL DISTRIBUTION WIDTH 15.3 % (11.5-14.0); SEGMENTED NEUTROPHILS % (AUTO) 66.9 % (42-78); WHITE BLOOD COUNT 8.6 10^3/uL (4.0-10.5)
[2017-03-27 09:07] LABS: ALANINE AMINOTRANSFERASE 29 U/L (9-52); ALBUMIN 4.3 g/dL (3.5-5.0); ALKALINE PHOSPHATASE 90 U/L (38-126); ANION GAP 13 (5-19); ASPARTATE AMINO TRANSFERASE 23 U/L (14-36); BILIRUBIN,DIRECT 0.3 mg/dL (0.0-0.4); BILIRUBIN,TOTAL 0.4 mg/dL (0.2-1.3); BLOOD UREA NITROGEN 11 mg/dL (7-20); CALCIUM 9.5 mg/dL (8.4-10.2); CARBON DIOXIDE 25 mmol/L (22-30); CHLORIDE 104 mmol/L (98-107); CREATININE RESULT 0.94 mg/dL (0.52-1.25); GLUCOSE 113 mg/dL (75-110); LIPASE 420.5 U/L (23-300); POTASSIUM 4.1 mmol/L (3.6-5.0); SODIUM 141.6 mmol/L (137-145); TOTAL PROTEIN 7.6 g/dL (6.3-8.2)
[2017-03-27] MEDS ORDERED: NORMAL SALINE 1000 ML 1,000 ML IV ONE (09:57)
[2017-03-27 10:12] LABS: APPEARANCE,URINE SLIGHTLY-CLOUDY; BILIRUBIN,URINE NEGATIVE (NEGATIVE); GLUCOSE, URINE NEGATIVE (NEGATIVE); KETONES,URINE TRACE mg/dL (NEGATIVE); LEUKOCYTE ESTERASE,URINE TRACE (NEGATIVE); NITRITE,URINE NEGATIVE (NEGATIVE); PROTEIN,URINE 100 mg/dL (NEGATIVE); URINE SPECIFIC GRAVITY 1.033
[2017-03-27] MEDS ORDERED: KETOROLAC TROMETHAMINE INJ/PF 30 MG/1 ML SDV IV ONE (10:12)
--- NOTE | 2017-03-27 10:17 | RADIOLOGY REPORT (SQ) ---
EXAM DESCRIPTION: U/S ABDOMEN LIMITED W/O DOP COMPLETED DATE/TIME: 03/27/2017 10:01 am REASON FOR STUDY: RUQ pain COMPARISON: 02/11/2016 TECHNIQUE: Dynamic and static grayscale images acquired of the abdomen and recorded on PACS. Pitero cheyanne selected color Doppler and spectral images recorded. LIMITATIONS: None. FINDINGS: PANCREAS: No masses. Visualized pancreatic duct normal caliber. LIVER: No masses. Echotexture normal. LIVER VASCULATURE: Normal directional flow of the main portal vein and hepatic veins. GALLBLADDER: Gallbladder is completely filled with gallstones. Gallbladder wall is of normal thickne ss. No pericholecystic fluid. ULTRASOUND-DETECTED ALVARADO'S SIGN: Positive. INTRAHEPATIC DUCTS AND COMMON DUCT: CBD and intrahepatic ducts normal caliber. No filling defects. INFERIOR VENA CAVA: Normal flow. AORTA: No aneurysm. RIGHT KIDNEY: Normal size. Normal echogenicity. No solid or suspicious masses. No hydronephrosis. No calcifications. PERITONEAL AND RIGHT PLEURAL SPACE: No ascites or effusions. OTHER: No other significant findings. IMPRESSION: 1. Cholelithiasis. Positive sonographic Alvarado's sign without other evidence of cholec ystitis. TECHNICAL DOCUMENTATION: JOB ID: [id number] [employer]- All Rights Reserved
--- NOTE | 2017-03-27 10:58 | PDOC H&P ---
History of Present Illness Patient complains of: Abdominal pain History of Present Illness: BRANDO GRUBER is a 31 year old female with known history of gallstones who did not undergo surgery last year due to the fact that it she was . Now coming in with 1 week history of diffuse severe abdominal pain had that has been progressively worsening. Patient has had diarrhea for the past several months. She denies any blood per rectum. She has had some associated nausea. No fever. No jaundice. No history of alcohol abuse. Denies any antibiotic use in the past several months. Past Medical History Cardiac Medical History: Reports: Hypertension - no meds Pulmonary Medical History: Reports: Asthma - no ER visit Neurological Medical History: Musculoskeltal Medical History: Reports: Arthritis - hands Psychiatric Medical History: Reports: Bipolar Disorder Hematology: Denies: Anemia Past Surgical History Past Surgical History: Reports: Section - x2, Other - History of multiple breast abscesses incision and drainage. Social History Smoking Status: Current Every Day Smoker Frequency of Alcohol Use: None Hx Recreational Drug Use: No Hx Prescription Drug Abuse: No Family History Family History: Arthritis, CAD, DM, Hyperlipidemia, Hypertension, Malignancy Parental Family History Reviewed: No Children Family History Reviewed: No Sibling(s) Family History Reviewed.: No Medication/Allergy Home Medications: Doxycycline Hyclate 100 mg PO BID #14 capsule 09/24/16 Oxycodone HCl/Acetaminophen [Percocet 10-325 Mg Tablet] 1 each PO Q4HP PRN #12 tablet 09/24/16 Cephalexin Monohydrate [Keflex 500 mg Capsule] 500 mg PO QID #20 capsule Oxycodone HCl/Acetaminophen [Percocet 5-325 mg Tablet] 1 tab PO Q6HP PRN #7 tab 01/20/17 Allergies/Adverse Reactions: lorazepam [From Ativan] Adverse Reaction (Mild, Verified 03/27/17 08:41) N&V, High fever Physical Exam Vital Signs: Temp Pulse Resp BP Pulse Ox 97.9 F 108 H 15 102/91 H 100 03/27/17 08:41 03/27/17 08:41 03/27/17 09:02 03/27/17 09:02 03/27/17 09:02 Intake & Output 03/26/17 03/27/17 03/28/17 06:59 06:59 06:59 Weight 114.759 kg General appearance: PRESENT: no acute distress, cooperative Eye exam: PRESENT: conjunctiva pink Neck exam: PRESENT: other - Neck supple with no tenderness. Respiratory exam: PRESENT: clear to auscultation citlalli Cardiovascular exam: PRESENT: RRR GI/Abdominal exam: PRESENT: other - Mildly distended, diffuse abdominal tenderness to palpation without peritoneal signs. Tender more in the upper abdomen. Extremities exam: PRESENT: other - No swelling and no tenderness Neurological exam: PRESENT: alert, awake Psychiatric exam: PRESENT: appropriate affect Skin exam: PRESENT: warm Results Laboratory Results: 03/27/17 08:25 03/27/17 08:25 03/27/17 03/27/17 03/27/17 08:25 08:25 08:25 WBC 8.6 RBC 4.83 Hgb 12.7 Hct 38.8 MCV 80 MCH 26.4 L MCHC 32.8 RDW 15.3 H Plt Count 387 Seg Neutrophils % 66.9 Lymphocytes % 23.7 Monocytes % 6.4 Eosinophils % 2.2 Basophils % 0.8 Absolute Neutrophils 5.8 Absolute Lymphocytes 2.0 Absolute Monocytes 0.5 Absolute Eosinophils 0.2 Absolute Basophils 0.1 Sodium 141.6 Potassium 4.1 Chloride 104 Carbon Dioxide 25 Anion Gap 13 BUN 11 Creatinine 0.94 Est GFR ( Amer) > 60 Est GFR (Non-Af Amer) > 60 Glucose 113 H Calcium 9.5 Total Bilirubin 0.4 AST 23 ALT 29 Alkaline Phosphatase 90 Total Protein 7.6 Albumin 4.3 Lipase 420.5 H Serum HCG, Qual NEGATIVE Urine Color Urine Appearance Urine pH Ur Specific [place] Urine Protein Urine Glucose (UA) Urine Ketones Urine Blood Urine Nitrite Ur Leukocyte Esterase Urine WBC (Auto) Urine RBC (Auto) 03/27/17 09:40 WBC RBC Hgb Hct MCV MCH MCHC RDW Plt Count Seg Neutrophils % Lymphocytes % Monocytes % Eosinophils % Basophils % Absolute Neutrophils Absolute Lymphocytes Absolute Monocytes Absolute Eosinophils Absolute Basophils Sodium Potassium Chloride Carbon Dioxide Anion Gap BUN Creatinine Est GFR ( Amer) Est GFR (Non-Af Amer) Glucose Calcium Total Bilirubin AST ALT Alkaline Phosphatase Total Protein Albumin Lipase Serum HCG, Qual Urine Color YELLOW Urine Appearance SLIGHTLY-CLOUDY Urine pH 5.0 Ur Specific [place] 1.033 Urine Protein 100 H Urine Glucose (UA) NEGATIVE Urine Ketones TRACE H Urine Blood NEGATIVE Urine Nitrite NEGATIVE Ur Leukocyte Esterase TRACE H Urine WBC (Auto) 2 Urine RBC (Auto) 2 Impressions: Abdomen Ultrasound 03/27/17 08:56 IMPRESSION: 1. Cholelithiasis. Positive sonographic Alvarado's sign without other evidence of cholecystitis. Assessment & Plan - Diagnosis (1) Gallstone pancreatitis Is this a current diagnosis for this admission?: Yes Plan: We will plan to admit the patient and place her on IV fluids and bowel rest. Will allow pancreatitis to subside followed by laparoscopic cholecystectomy with possible intraoperative cholangiogram. (2) Diarrhea Is this a current diagnosis for this admission?: Yes Plan: Will check stool studies.
[2017-03-27] MEDS: HYDROMORPHONE HCL INJ/PF 2 MG/ML AMPULE IV PRN ×2 (11:28→20:56)
[2017-03-27] MEDS: NORMAL SALINE 1000 ML 1,000 ML IV PRN ×2 (14:07→20:55)
[2017-03-27] MEDS ORDERED: GABAPENTIN 300 MG CAPSULE PO ONE (15:30)
[2017-03-27] MEDS ORDERED: LURASIDONE HCL 60 MG TABLET PO ONE (15:30)
[2017-03-27] MEDS ORDERED: LAMOTRIGINE 25 MG TAB.CHEW PO SCH (16:00)
[2017-03-27] MEDS ORDERED: NICOTINE 21 MG/24 HR PATCH.TD24 TD ONE (18:45)
[2017-03-27] MEDS: GABAPENTIN 300 MG CAPSULE PO SCH (20:55)
[2017-03-27] MEDS: TRAZODONE HCL 50 MG TABLET PO PRN (20:56)
[2017-03-27] MEDS ORDERED: GABAPENTIN 300 MG CAPSULE PO SCH (22:00)
[2017-03-28 06:03] LABS: HEMATOCRIT 36.8 % (36.0-47.0); HGB HCT DIFFERENCE -0.8; MEAN CORPUSCULAR HEMOGLOBIN 26.6 pg (27.0-33.4); MEAN CORPUSCULAR HGB CONC 32.6 g/dL (32.0-36.0); MEAN CORPUSCULAR VOLUME 81 fl (80-97); RED BLOOD COUNT 4.52 10^6/uL (3.72-5.28); RED CELL DISTRIBUTION WIDTH 15.3 % (11.5-14.0); WHITE BLOOD COUNT 6.1 10^3/uL (4.0-10.5)
[2017-03-28] MEDS: GABAPENTIN 300 MG CAPSULE PO SCH ×3 (06:56→22:53)
[2017-03-28] MEDS: HYDROMORPHONE HCL INJ/PF 2 MG/ML AMPULE IV PRN ×4 (06:57→17:39)
[2017-03-28] MEDS: NORMAL SALINE 1000 ML 1,000 ML IV PRN (06:57)
[2017-03-28 09:48] LABS: ALANINE AMINOTRANSFERASE 36 U/L (9-52); ALBUMIN 4.1 g/dL (3.5-5.0); ALKALINE PHOSPHATASE 90 U/L (38-126); ANION GAP 13 (5-19); ASPARTATE AMINO TRANSFERASE 24 U/L (14-36); BILIRUBIN,DIRECT 0.3 mg/dL (0.0-0.4); BLOOD UREA NITROGEN 9 mg/dL (7-20); CALCIUM 9.1 mg/dL (8.4-10.2); CARBON DIOXIDE 24 mmol/L (22-30); CHLORIDE 103 mmol/L (98-107); CREATININE RESULT 0.81 mg/dL (0.52-1.25); GLUCOSE 84 mg/dL (75-110); LIPASE 90.2 U/L (23-300); POTASSIUM 4.8 mmol/L (3.6-5.0); SODIUM 139.9 mmol/L (137-145); TOTAL PROTEIN 7.1 g/dL (6.3-8.2)
[2017-03-28] MEDS ORDERED: LURASIDONE HCL 60 MG TABLET PO SCH (10:00)
[2017-03-28] MEDS: ENOXAPARIN SODIUM INJ 40 MG/0.4 ML DISP.SYRIN SUBCUT SCH (10:32)
[2017-03-28] MEDS ORDERED: ZOLPIDEM TARTRATE 5 MG TABLET PO PRN (16:00)
[2017-03-28] MEDS ORDERED: NICOTINE 21 MG/24 HR PATCH.TD24 TD SCH (18:00)
--- NOTE | 2017-03-28 20:18 | PROGRESS NOTE E ---
Progress Note NAME: BRANDO GRUBER : 1985 AGE: 31Y DATE: 03/28/2017 ROOM: 404 SUBJECTIVE: The patient is still complaining of epigastric and right upper quadrant pains and tenderness. She remains afebrile with a white count today of 6.1. Her lipase yesterday was 420 and today it was down to normal at 90.2. She will be scheduled for laparoscopic cholecystectomy in a.m. We can give a little clear liquids tonight and then n.p.o. from midnight. DICTATING PHYSICIAN: CAROLINA SANTOS M.D. [id number] PHY#: [id number] ID: [id number] JOB#: [id number] ACCT: [id number] cc: >
[2017-03-28] MEDS ORDERED: DEXTROSE 50%-WATER 25 GM/50 ML DISP.SYRIN IV PRN ×2 (20:46)
[2017-03-28] MEDS ORDERED: DEXTROSE 40% GEL 15 GM TUBE PO PRN ×2 (20:46)
[2017-03-28] MEDS ORDERED: GLUCAGON,HUMAN RECOMB 1 MG INJ SUBCUT PRN (20:46)
[2017-03-29] MEDS: NORMAL SALINE 1000 ML 1,000 ML IV PRN ×2 (00:30→14:24)
[2017-03-29] MEDS: HYDROMORPHONE HCL INJ/PF 2 MG/ML AMPULE IV PRN ×5 (00:30→20:12)
[2017-03-29] MEDS: ONDANSETRON HCL INJ/PF 4 MG/2 ML SDV IV PRN ×2 (00:30→16:17)
[2017-03-29] MEDS: GABAPENTIN 300 MG CAPSULE PO SCH ×3 (05:48→22:06)
[2017-03-29] MEDS ORDERED: BUPIVACAINE HCL 0.25 % INJ/PF (2.5 MG/1 ML) 30 ML VIAL ONE (07:30)
[2017-03-29] MEDS ORDERED: FENTANYL CITRATE INJ/PF 250 MCG/5 ML AMPULE ONE (08:50)
[2017-03-29] MEDS ORDERED: MIDAZOLAM 2 MG/2 ML INJ ONE (08:50)
[2017-03-29] MEDS ORDERED: IBUPROFEN INJ 800 MG/8 ML VIAL IV ONE (08:51)
[2017-03-29] MEDS ORDERED: PROPOFOL INJ 200 MG/20 ML VIAL IV ONE (08:51)
[2017-03-29] MEDS ORDERED: HYDROMORPHONE HCL INJ/PF 2 MG/ML AMPULE ONE (08:51)
[2017-03-29] MEDS ORDERED: EPHEDRINE SULFATE INJ 50 MG/1 ML AMPULE ONE (08:51)
[2017-03-29] MEDS ORDERED: ALBUTEROL SULFATE 0.083% NEB 2.5 MG/3 ML AMPUL NEB ONE ×2 (08:53→10:30)
[2017-03-29] MEDS ORDERED: CEFAZOLIN INJ 1 GM VIAL ONE (09:53)
[2017-03-29] MEDS ORDERED: FENTANYL CITRATE INJ/PF 100 MCG/2 ML AMPUL IV PRN ×2 (10:05)
[2017-03-29] MEDS ORDERED: MEPERIDINE HCL/PF INJ 25 MG/1 ML DISP.SYRIN IV PRN (10:05)
[2017-03-29] MEDS ORDERED: PROMETHAZINE HCL INJ 25 MG/1 ML VIAL IV PRN (10:05)
[2017-03-29] MEDS ORDERED: DIPHENHYDRAMINE HCL 50 MG/ML VIAL IV PRN (10:05)
[2017-03-29] MEDS ORDERED: HYDROMORPHONE HCL INJ/PF 2 MG/ML AMPULE IV PRN (11:12)
--- NOTE | 2017-03-29 11:18 | OPERATIVE REPORT E ---
Operative Report NAME: BRANDO GRUBER : 1985 AGE: 31Y DATE OF SURGERY: 03/29/2017 ROOM: 404 PREOPERATIVE DIAGNOSIS: Gallstone pancreatitis. POSTOPERATIVE DIAGNOSES: 1. Gallstone pancreatitis. 2. Chronic calculous cholecystitis. OPERATION: Laparoscopic cholecystectomy. SURGEON: CAROLINA SANTOS M.D. ANESTHESIA: General. INDICATION: This is a 31-year-old female complaining of abdominal pains. Ultrasound revealed gallstones. However, her lipase was elevated to greater than 400. She was admitted on 03/27/2017. On 03/28/2017, the lipase came down to normal with somewhat decreasing abdominal pains. DESCRIPTION OF PROCEDURE: After adequate general anesthesia, the patient was placed in the supine position and the abdomen was prepped and draped in the usual sterile fashion. Appropriate timeout was done. Next, an infraumbilical incision was made and fascia identified and grasped with the Idny clamps on each side and subsequently divided between the clamps. The opening was enlarged with a large hemostat enough to allow the finger to be passed through the opening and do some blunt dissection of adhesions in the umbilical area. The patient did have a history of previous section. Next, the Roberta trocar was then inserted into the abdomen through the fascia and CO2 insufflated to a pressure of 15 mmHg. Three other trocars were placed, a 12 mm in the subxiphoid, and two 5 mm in the right upper quadrant. The gallbladder was then identified and noted to be quite thickened wall and quite distended, but was still able to place a grasper at the fundus and lift the gallbladder up over the liver. Next, the area of the cystic duct was noted to be quite thickened, was partially dissected and the pertoneal reflection divided with the use of the harmonic wojciech. Blunt dissections was then performed and the infundibulum was able to be grasped by the graspers. Next, the cystic duct was then dissected and the cystic duct was then clipped with hemoclips, 3 proximally and 1 towards the gallbladder. It was then divided between the hemoclips. Next, the cystic duct was then dissected. There was thickened tissue around the cystic artery and this was subsequently clipped proximally and divided with the use of harmonic. The gallbladder was then dissected off the liver bed with the use harmonic wojciech and eventually removed from the liver bed. This was placed in an Endobag and removed through the umbilical port. It was noted to be filled with at least 1 large stone roughly measuring about 2.5 cm in diameter. Next, the Roberta trocar was then put back and the liver bed was inspected and noted to have adequate hemostasis after irrigation. Next, there was an adhesion around the area of the umbilicus that was then taken down with the use of harmonic wojciech. There was a thick adhesion from the uterus to the abdominal wall that was left in place. Following this, all the trocars were removed and CO2 allowed to come out through all the trocar sites. The infraumbilical fascial defect was then closed with a [id number] suture using 0-Vicryl. All the skin incisions were then closed with subcuticular 4-0 Vicryl undyed. Sterile dressings placed over the incision sites. The patient tolerated the procedure well. Needle, instrument, and sponge counts were all correct. Estimated blood loss was about 10 mL. The patient brought to PACU in satisfactory condition. DICTATING PHYSICIAN: CAROLINA SANTOS M.D. [id number] PHY#: [id number] ID: [id number] JOB#: [id number] ACCT: [id number] cc:CAROLINA SANTOS M.D. > MTDD
[2017-03-29] MEDS: ENOXAPARIN SODIUM INJ 40 MG/0.4 ML DISP.SYRIN SUBCUT SCH (12:54)
[2017-03-29] MEDS: FENTANYL CITRATE INJ/PF 100 MCG/2 ML AMPUL IV PRN ×2 (12:54→13:11)
[2017-03-29] MEDS ORDERED: ONDANSETRON HCL INJ/PF 4 MG/2 ML SDV ONE ×2 (13:03→13:06)
[2017-03-29] MEDS ORDERED: SUCCINYLCHOLINE CHLORIDE INJ 200 MG/10 ML VIAL ONE ×2 (13:03→13:06)
[2017-03-29] MEDS ORDERED: LIDOCAINE 2% INJ-PF (20 MG/ML) 10 ML AMPUL ONE ×2 (13:03→13:06)
[2017-03-29] MEDS ORDERED: NEOSTIGMINE METHYLSULFATE 10 MG/10 ML VIAL ONE ×2 (13:03→13:06)
[2017-03-29] MEDS ORDERED: VECURONIUM BROMIDE INJ 10 MG VIAL IV ONE ×2 (13:03→13:06)
[2017-03-29] MEDS ORDERED: ROCURONIUM BROMIDE INJ 50 MG/5 ML VIAL IV ONE ×2 (13:03→13:06)
[2017-03-29] MEDS ORDERED: GLYCOPYRROLATE INJ 0.4 MG/2 ML VIAL ONE ×2 (13:03→13:06)
[2017-03-29] MEDS ORDERED: DEXAMETHASONE SOD PHOSPHATE INJ 4 MG/1 ML VIAL ONE ×2 (13:03→13:06)
[2017-03-29] MEDS ORDERED: NICOTINE 21 MG/24 HR PATCH.TD24 TD ONE (13:30)
[2017-03-29] MEDS: CEFAZOLIN 1 GM/D5W RTU 1 GM/50 ML RTUPB IV SCH (19:46)
[2017-03-29] MEDS: TRAZODONE HCL 50 MG TABLET PO PRN (22:12)
[2017-03-30] MEDS: CEFAZOLIN 1 GM/D5W RTU 1 GM/50 ML RTUPB IV SCH ×3 (01:41→17:38)
[2017-03-30] MEDS: HYDROMORPHONE HCL INJ/PF 2 MG/ML AMPULE IV PRN ×2 (05:42→09:54)
[2017-03-30] MEDS: GABAPENTIN 300 MG CAPSULE PO SCH ×2 (05:42→13:24)
[2017-03-30] MEDS: ENOXAPARIN SODIUM INJ 40 MG/0.4 ML DISP.SYRIN SUBCUT SCH (09:47)
[2017-03-30] MEDS ORDERED: NICOTINE 21 MG/24 HR PATCH.TD24 TD SCH (10:00)
[2017-03-30] MEDS: OXYCODONE-ACETAMINOPHEN 5-325 MG TABLET PO PRN ×2 (14:07→18:48)
[2017-03-30 18:37] VITALS: BP 136/63
[2017-03-30] MEDS ORDERED: CIPROFLOXACIN HCL 500 MG TABLET PO SCH (22:00)
--- NOTE | 2017-03-31 00:33 | DISCHARGE SUMMARY E ---
Discharge Summary NAME: BRANDO GRUBER : 1985 AGE: 31Y ADMITTED: 03/27/2017 DISCHARGED: 03/30/2017 FINAL DIAGNOSES: 1. GALLSTONE PANCREATITIS. 2. CHRONIC CHOLECYSTITIS. HOSPITAL COURSE: The patient was admitted for abdominal pain on 03/27/2017 and ultrasound showed gallstones and lipase elevated to over 400. The next day the lipase came down to normal and on 03/29/2017, the patient underwent laparoscopic cholecystectomy. Postoperatively, she did well and discharged on 03/30/2017 with above final diagnoses. She was advised not to do any lifting more than 15 pounds for the next 2 weeks and to be followed up in the surgical clinic in about 2 weeks. She was given a prescription for Percocet to take 1 every 4 hours p.r.n. for pain since she still feels she has some incisions pains. She was then discharged and improved on 03/30/2017. DICTATING PHYSICIAN: CAROLINA SANTOS M.D. [id number] PHY#: [id number] ID: [id number] JOB#: [id number] ACCT: [id number] cc:Yoandy WINSTON MD, M.D. [facility],
== END 2017-03-30 18:55 | disposition home or self-care (01) | DRG 418 ==
LOC: ER 08:12 → EH 10:59 → UNDOADMIN 11:28 → EH 11:28 → 4N 12:57
PROVIDERS: ATTEND Surgery
PROC: 0FT44ZZ Resection of Gallbladder, Percutaneous Endoscopic Approach (ICD-10-PCS; principal; 2017-03-29 09:00)
DX: K85.10 Biliary acute pancreatitis without necrosis or infection (principal); K80.10 Calculus of gallbladder with chronic cholecystitis without obstruction; R19.7 Diarrhea, unspecified; I10 Essential (primary) hypertension; M19.042 Primary osteoarthritis, left hand; M19.041 Primary osteoarthritis, right hand; F31.9 Bipolar disorder, unspecified; F17.200 Nicotine dependence, unspecified, uncomplicated; Z79.899 Other long term (current) drug therapy; Z88.8 Allergy status to other drugs, medicaments and biological substances
CPT/HCPCS: 36415; 76705; 790; 80053; 81001; 83690; 84703; 85025; 85027; 88304; 96374; 99285; J0330; J0690; J1100; J1170; J1650; J1741; J1885; J2250; J2405; J2704; J3010; J3490; J7030; S0119

== ENCOUNTER 2017-04-26 20:44 | Emergency (ER) | payer MEDICAID ==
--- NOTE | 2017-04-26 21:43 | ER Document Report ---
HPI - HPI Pain Level: 5 Notes: Patient is a 31-year-old female who presents the ED with complaint of a red swollen bump to her umbilicus 1 week. Patient states that the area is tender to the touch. She has not noticed any purulent discharge at this time. She has not noticed any red streaking. No other concerns or complaints. Patient states that she did have her gallbladder taken out about a month ago with a lesion excised in her umbilicus around that area. Denies any other significant past medical history, smoking, IV drugs. Denies any headache, fever, URI, sore throat, chest pain, palpitations, syncope, cough, shortness of breath, wheeze, dyspnea, abdominal pain, nausea/vomiting/diarrhea, urinary retention, dysuria, hematuria. - ROS Notes: REVIEW OF SYSTEMS: CONSTITUTIONAL : Denies fever, chills, or sweats. Denies recent illness. EENT: Denies eye, ear, throat, or mouth pain or symptoms. Denies nasal or sinus congestion or discharge. Denies throat, tongue, or mouth swelling or difficulty swallowing. CARDIOVASCULAR: Denies chest pain. Denies palpitations or racing or irregular heart beat. Denies ankle edema. RESPIRATORY: Denies cough, cold, or chest congestion. Denies shortness of breath, difficulty breathing, or wheezing. GASTROINTESTINAL: Denies abdominal pain or distention. Denies nausea, vomiting , or diarrhea. Denies blood in vomitus, stools, or per rectum. Denies black, tarry stools. Denies constipation. GENITOURINARY: Denies difficulty urinating, painful urination, burning, frequency, blood in urine, or discharge. MUSCULOSKELETAL: Denies back or neck pain or stiffness. Denies joint pain or swelling. SKIN: see hpi NEUROLOGICAL: Denies confusion or altered mental status. Denies passing out or loss of consciousness. Denies dizziness or lightheadedness. Denies headache. Denies weakness or paralysis or loss of use of either side. Denies problems with gait or speech. Denies sensory loss, numbness, or tingling. ALL OTHER SYSTEMS REVIEWED AND NEGATIVE. Dictation was performed using [employer] voice recognition software - REPRODUCTIVE Reproductive: DENIES: : - DERM Skin Color: Normal, [place] Past Medical History - Social History Smoking Status: Unknown if Ever Smoked Family History: Arthritis, CAD, DM, Hyperlipidemia, Hypertension, Malignancy Patient has suicidal ideation: No Patient has homicidal ideation: No - Past Medical History Cardiac Medical History: Reports: Hx Hypertension Pulmonary Medical History: Reports: Hx Asthma - no ER visit Neurological Medical History: Renal/ Medical History: Reports: Hx Ovarian Cysts. Denies: Hx Peritoneal Dialysis Musculoskeltal Medical History: Reports Hx Arthritis - hands Skin Medical History: Reports Hx Cellulitis Psychiatric Medical History: Reports: Hx Bipolar Disorder, Hx Schizophrenia Past Surgical History: Reports: Hx Breast Surgery - L cyst, multiple left I&Ds, Hx Section - x2, Other - History of multiple breast abscesses incision and drainage. - Immunizations Immunizations up to date: Yes Hx Diphtheria, Pertussis, Tetanus Vaccination: Yes Hx Pneumococcal Vaccination: 04/22/14 Vertical Provider Document - CONSTITUTIONAL Agree With Documented VS: Yes Notes: PHYSICAL EXAMINATION: GENERAL: Well-appearing, well-nourished and in no acute distress. LUNGS: Breath sounds clear to auscultation bilaterally and equal. No wheezes rales or rhonchi. HEART: Regular rate and rhythm without murmurs, rubs, gallops. ABDOMEN: Soft, nontender, nondistended abdomen. No guarding, no rebound. No masses appreciated. Normal bowel sounds present. No CVA tenderness bilaterally. Musculoskeletal: FROM to passive/active. Strength 5+/5. Extremities: No cyanosis, clubbing, or edema b/l. Peripheral pulses 2+. Capillary refill less than 3 seconds. NEUROLOGICAL: Cranial nerves grossly intact. Normal speech, normal gait. Normal sensory, motor exams PSYCH: Normal mood, normal affect. SKIN: small 0.5cm abscess noted with minimal induration to the umbilicus. Purulent drainage was expressable and wound culture obtained. No streaks noted. No I&D warranted at this time. - INFECTION CONTROL TRAVEL OUTSIDE OF THE [place] IN LAST 30 DAYS: No - RESPIRATORY O2 Sat by Pulse Oximetry: 100 Course - Re-evaluation Re-evalutation: 04/26/17 21:45 Pt is a well-hydrated, 31-year-old female with a small abscess to her umbilicus. Vitals are stable. PE is otherwise unremarkable. Purulent drainage was expressed and removed from the abscess with a wound culture pending. No incision and drainage was warranted today based on exam. I will send her home with a prescription for Keflex and Bactrim to take as directed. Conservative measures for symptoms otherwise. Recheck with your PCM in 3-5 days. Return to the ED with any worsening/concerning symptoms otherwise as reviewed discharge. Patient is in agreement. - Vital Signs Vital signs: Temp Pulse Resp BP Pulse Ox 98.7 F 87 16 148/90 H 100 04/26/17 20:46 04/26/17 20:46 04/26/17 20:46 04/26/17 20:46 04/26/17 20:46 Discharge - Discharge Clinical Impression: Abscess Condition: Stable Disposition: HOME, SELF-CARE Instructions: Abscess ([facility]), Cephalexin ([facility]), Trimethoprim-Sulfa ([facility]) Additional Instructions: Keep the skin clean Wash with soap and water Apply triple antibiotic ointment as directed Take antibiotics as directed Monitor for any worsening signs or symptoms Recheck with your PCM in 3-5 days Return to the ED with any worsening symptoms and/or development of fever, headache, chest pain, palpitations, syncope, shortness of breath, trouble breathing, abdominal pain, n/v/d, blood in stool/urine, loss of control of bowel /bladder, worsening abscess, red streaks, or other worsening symptoms that are concerning to you. Prescriptions: Cephalexin Monohydrate [Keflex 500 mg Capsule] 500 mg PO BID #20 capsule Sulfamethoxazole/Trimethoprim [Bactrim Ds Tablet] 1 each PO BID #20 tablet Forms: Elevated Blood Pressure Referrals: [facility] [Provider Group] - Follow up as needed [facility] [Provider Group] - Follow up as needed
[2017-04-26] MEDS ORDERED: ACETAMINOPHEN 325 MG TABLET PO ONE (22:17)
[2017-04-26 22:18] VITALS: BP 179/94
== END 2017-04-26 22:24 | disposition home or self-care (01) ==
LOC: ER 20:44
DX: L02.216 Cutaneous abscess of umbilicus (principal); I10 Essential (primary) hypertension; J45.909 Unspecified asthma, uncomplicated; Z90.49 Acquired absence of other specified parts of digestive tract
CPT/HCPCS: 99283; 87070; 87205; 87077; 87186; J3490

== ENCOUNTER 2017-08-25 10:40 | Emergency (ER) | payer MEDICAID ==
[2017-08-25] MEDS ORDERED: KETOROLAC TROMETHAMINE 60 MG/2 ML SDV IM ONE (12:35)
--- NOTE | 2017-08-25 12:41 | ER Document Report ---
ED General - General Chief Complaint: Abscess Stated Complaint: LUMP ON BACK Mode of Arrival: Ambulatory Information source: Patient TRAVEL OUTSIDE OF THE [place] IN LAST 30 DAYS: No - HPI Notes: 31-year-old female presents today with complaints of left-sided neck pain for approximately 2 days. States that she woke up with the pain. Cannot remember lifting any heavy objects the day before. reports pain is 8/10, sharp and shooting with movement. Denies any numbness or tingling down bilateral arms. Denies any fevers or chills. Denies any trauma. Denies any recent URI symptoms. Vaccinations are up-to-date. Denies any photophobia or phonophobia. Denies headache. has not tried [id number]-rtc-[id number] ibuprofen or Tylenol for pain. Has not tried any warm compresses or cool compresses. Denies any chest pain, shortness of breath, nausea, vomiting, diarrhea, abdominal pain, dysuria, lightheadedness, dizziness, blurred vision, double vision, loss of vision. Denies any issues with swallowing, drooling, opening or closing her jaw movement and the shoulders. Denies any rashes. - Related Data Allergies/Adverse Reactions: lorazepam [From Ativan] Adverse Reaction (Mild, Verified 03/27/17 08:41) N&V, High fever Past Medical History - General Information source: Patient - Social History Smoking Status: Unknown if Ever Smoked Family History: Arthritis, CAD, DM, Hyperlipidemia, Hypertension, Malignancy Patient has suicidal ideation: No Patient has homicidal ideation: No - Past Medical History Cardiac Medical History: Reports: Hx Hypertension Pulmonary Medical History: Reports: Hx Asthma - no ER visit Neurological Medical History: Renal/ Medical History: Reports: Hx Ovarian Cysts. Denies: Hx Peritoneal Dialysis Musculoskeltal Medical History: Reports Hx Arthritis - hands Skin Medical History: Reports Hx Cellulitis Psychiatric Medical History: Reports: Hx Bipolar Disorder, Hx Schizophrenia Past Surgical History: Reports: Hx Breast Surgery - L cyst, multiple left I&Ds, Hx Section - x2, Other - History of multiple breast abscesses incision and drainage. - Immunizations Immunizations up to date: Yes Hx Diphtheria, Pertussis, Tetanus Vaccination: Yes Hx Pneumococcal Vaccination: 04/22/14 Review of Systems - Review of Systems Constitutional: No symptoms reported EENT: No symptoms reported Cardiovascular: No symptoms reported Respiratory: No symptoms reported Gastrointestinal: No symptoms reported Genitourinary: No symptoms reported Female Genitourinary: No symptoms reported Musculoskeletal: See HPI Skin: No symptoms reported Hematologic/Lymphatic: No symptoms reported Neurological/Psychological: No symptoms reported Physical Exam - Vital signs Vitals: Temp Pulse Resp BP Pulse Ox 98.6 F 87 16 138/85 H 100 08/25/17 10:50 08/25/17 10:50 08/25/17 10:50 08/25/17 10:50 08/25/17 10:50 - Notes Notes: PHYSICAL EXAMINATION: GENERAL: Well-appearing, well-nourished and in no acute distress. HEAD: Atraumatic, normocephalic. EYES: Pupils equal round and reactive to light, extraocular movements intact, conjunctiva are normal. ENT: Nares patent, oropharynx clear without exudates. Moist mucous membranes. NECK: Normal range of motion, supple without lymphadenopathy. Limited APROM to the left. Negative spurlings test. [employer] + 2 bilaterally and equally. Dtr + 2bilaterally and equally in BUE. Perrla, full eomi. Face symmetrical.~No rashes observed. Point tenderness to left paraspinal muscles near C6. Full APROM of shoulders. TMs intact bilaterally. No lymphadenopathy. Full APROM with shoulders. TMJ without any crepitus or clicking.~ Open close mouth without any pain. No open wounds or drainage. No meningismus. No noted lymphadenopathy LUNGS: Breath sounds clear to auscultation bilaterally and equal. No wheezes rales or rhonchi. HEART: Regular rate and rhythm without murmurs ABDOMEN: Soft, nontender, nondistended abdomen. No guarding, no rebound. No masses appreciated. Female : deferred Musculoskeletal: Normal range of motion, no pitting or edema. No cyanosis. NEUROLOGICAL: Cranial nerves grossly intact. Normal speech, normal gait. Normal sensory, motor exams PSYCH: Normal mood, normal affect. SKIN: Warm, Dry, normal turgor, no rashes or lesions noted. Course - Re-evaluation Re-evalutation: 08/25/17 12:39 Discussed with patient this is likely a muscle strain. We will give him 60 mg IM of Toradol for pain control. Advised to take widx-ota-goiixen ibuprofen Tylenol for pain, apply heat 20 minutes on 20 minutes off several times a day. Advised to follow-up with primary care provider within 2 days. Return to the ER symptoms become worse. Will prescribe Flexeril, do not drive, drink, operate heavy machinery while taking medication. Patient verbalized understanding of these instructions and agree with plan of care. - Vital Signs Vital signs: Temp Pulse Resp BP Pulse Ox 98.6 F 87 16 138/85 H 100 08/25/17 10:50 08/25/17 10:50 08/25/17 10:50 08/25/17 10:50 08/25/17 10:50 Discharge - Discharge Clinical Impression: Torticollis, acute Condition: Good Disposition: HOME, SELF-CARE Additional Instructions: Torticollis You have torticollis, often called "wry neck." This is due to spasm of neck muscles -- locking the neck into a crooked position. Many different problems can lead to torticollis, such as a minor injury, sleeping with tension on the neck, or inflammation in the glands of the neck. Torticollis is usually treated with heat to relax the neck muscles, but the physician may recommend cold packs if a minor injury is suspected as the cause. Muscle relaxing and antiinflammatory medicine are often prescribed. You may need a neck collar to support your head. Improvement is usually rapid. Usually, the neck can be moved fully within two days, although some pain may persist for a few weeks. Call the doctor at once if you worsen, or if you develop high fever, severe headache, numbness or weakness, or other alarming symptoms. Return immediately for any new or worsening symptoms. Follow up with primary care provider, call tomorrow to make followup appointment. Prescriptions: Cyclobenzaprine HCl [Flexeril 5 mg Tablet] 5 mg PO TID #9 tablet Referrals: ROBERTO BOWERS MD [ACTIVE STAFF] - Follow up in 3-5 days
[2017-08-25 12:54] VITALS: BP 135/80
== END 2017-08-25 12:55 | disposition home or self-care (01) ==
LOC: ER 10:40
DX: M43.6 Torticollis (principal); L02.212 Cutaneous abscess of back [any part, except buttock and flank]; M54.2 Cervicalgia; R20.0 Anesthesia of skin
CPT/HCPCS: 99283; 96372; J1885

== ENCOUNTER 2017-11-09 13:45 | Emergency (ER) | payer MEDICAID ==
--- NOTE | 2017-11-09 14:41 | ER Document Report ---
HPI - HPI Patient complains to provider of: Breast lump Onset: Other - 3 days Onset/Duration: Persistent Quality of pain: Achy Pain Level: 5 Context: Patient presents complaining of breast lump to right breast for the past 3 days. Patient has a history of breast abscesses in the past and is concerned about this today. Patient denies any fever. Associated Symptoms: Other - Breast tenderness. denies: Fever Exacerbated by: Denies Relieved by: Denies Similar symptoms previously: Yes Recently seen / treated by doctor: No - ROS ROS below otherwise negative: Yes Systems Reviewed and Negative: Yes All other systems reviewed and negative - CONSTITUTIONAL Constitutional: DENIES: Fever - GASTROINTESTINAL Gastrointestinal: DENIES: Nausea - REPRODUCTIVE Reproductive: DENIES: : - DERM Skin Color: Erythema Notes: Abscess Past Medical History - General Information source: Patient - Social History Smoking Status: Current Every Day Smoker Smoking Education Provided: Yes Drug Abuse: None Occupation: Cleaning Family History: Arthritis, CAD, DM, Hyperlipidemia, Hypertension, Malignancy - Past Medical History Cardiac Medical History: Reports: Hx Hypertension Pulmonary Medical History: Reports: Hx Asthma - no ER visit Neurological Medical History: Renal/ Medical History: Reports: Hx Ovarian Cysts. Denies: Hx Peritoneal Dialysis Musculoskeltal Medical History: Reports Hx Arthritis - hands Skin Medical History: Reports Hx Cellulitis Psychiatric Medical History: Reports: Hx Bipolar Disorder, Hx Schizophrenia Past Surgical History: Reports: Hx Breast Surgery - L cyst, multiple left I&Ds, Hx Section - x2, Other - History of multiple breast abscesses incision and drainage. - Immunizations Immunizations up to date: Yes Hx Diphtheria, Pertussis, Tetanus Vaccination: Yes Hx Pneumococcal Vaccination: 04/22/14 Vertical Provider Document - CONSTITUTIONAL Agree With Documented VS: Yes Exam Limitations: No Limitations General Appearance: WD/WN, No Apparent Distress - INFECTION CONTROL TRAVEL OUTSIDE OF THE [place] IN LAST 30 DAYS: No - HEENT HEENT: Atraumatic, Normocephalic - NECK Neck: Normal Inspection - RESPIRATORY Respiratory: Breath Sounds Normal, No Respiratory Distress - CARDIOVASCULAR Cardiovascular: Regular Rate, Regular Rhythm - BACK Back: Normal Inspection - MUSCULOSKELETAL/EXTREMETIES Musculoskeletal/Extremeties: MAEW, FROM, Tender - Tender nodule to right axilla , normal skin color and temperature overlying this area - NEURO Level of Consciousness: Awake, Alert, Appropriate Motor/Sensory: No Motor Deficit - DERM Integumentary: Warm, Dry, Abscess - Abscess to right breast with surrounding erythema concerning for cellulitis, abscess with an area that is soft and fluctuant at the 9 o'clock position on the border of the areola Course - Re-evaluation Re-evalutation: 11/09/17 14:[address] High who agrees to come and evaluate patient 11/09/17 15:26 Dr. High plans to perform incision and drainage procedure at bedside. 11/09/17 15:52 Dr. High advises giving patient of Bactrim in addition to pain medication and having her follow-up with the office this week for recheck. - Vital Signs Vital signs: Temp Pulse Resp BP Pulse Ox 98.1 F 90 16 146/78 H 99 11/09/17 13:58 11/09/17 13:58 11/09/17 13:58 11/09/17 13:58 11/09/17 13:58 Discharge - Discharge Clinical Impression: Breast abscess, Encounter for incision and drainage procedure Condition: Stable Disposition: HOME, SELF-CARE Instructions: Abscess ([facility]), Oral Narcotic Medication ([facility]), Post Incision and Drainage, Trimethoprim-Sulfa ([facility]) Additional Instructions: Return immediately for any new or worsening symptoms Followup with your primary care provider, call tomorrow to make a followup appointment Follow-up with the surgeon this week for recheck, call Friday for an appointment Prescriptions: Sulfamethoxazole/Trimethoprim [Bactrim Ds Tablet] 1 each PO BID #20 tablet Tramadol HCl [Ultram 50 mg Tablet] 50 mg PO ASDIR PRN #15 tablet PRN Reason: Forms: Smoking Cessation Education Referrals: TE HARRIS MD [Primary Care Provider] - Follow up as needed [facility] [Provider Group] - Follow up in 3-5 days
[2017-11-09] MEDS ORDERED: LIDOCAINE 1% INJ-PF (10 MG/ML) 30 ML SDV INFIL ONE (15:26)
[2017-11-09] MEDS ORDERED: MORPHINE SULFATE 10 MG/ML INJ IV ONE (15:43)
[2017-11-09] MEDS ORDERED: SULFAMETHOXAZOLE/TRIMETHOPRIM 800-160 MG TABLET PO ONE (15:52)
[2017-11-09 16:12] VITALS: BP 144/85
--- NOTE | 2017-11-09 20:50 | PDOC CONSULTATION ---
Consultation Consult Date: 11/09/17 Consult reason:: Breast abscess on the right History of Present Illness Admission Date/PCP: TE HARRIS MD Patient complains of: Breast pain/breast abscess History of Present Illness: BRANDO GRUBER is a 32 year old female with a history of multiple breast abscesses in the past. She reports a one-week history of swelling and redness of the right breast. The area has become fluctuant and tender. The patient reports that it feels very similar to her previous breast abscesses. She has had fevers and chills overnight. Nothing makes her pain better. Palpation makes her pain worse. Past Medical History Cardiac Medical History: Reports: Hypertension Pulmonary Medical History: Reports: Asthma - no ER visit Neurological Medical History: Musculoskeltal Medical History: Reports: Arthritis - hands Psychiatric Medical History: Reports: Bipolar Disorder Hematology: Denies: Anemia Past Surgical History Past Surgical History: Reports: Section - x2, Other - History of multiple breast abscesses incision and drainage. Social History Smoking Status: Current Every Day Smoker Frequency of Alcohol Use: None Hx Recreational Drug Use: No Hx Prescription Drug Abuse: No Family History Family History: Arthritis, CAD, DM, Hyperlipidemia, Hypertension, Malignancy Parental Family History Reviewed: Yes Children Family History Reviewed: Yes Sibling(s) Family History Reviewed.: Yes Medication/Allergy Home Medications: Gabapentin [Neurontin 300 mg Capsule] 300 mg PO Q8 03/27/17 Lamotrigine 50 mg PO DAILY@1600 03/27/17 Lurasidone HCl [Latuda 60 mg Tablet] 60 mg PO DAILY 03/27/17 Trazodone HCl [Desyrel 50 mg Tablet] 50 mg PO HSP PRN 03/27/17 Zolpidem Tartrate [Ambien Cr] 12.5 mg PO HSP PRN 03/27/17 Cephalexin Monohydrate [Keflex 500 mg Capsule] 500 mg PO BID #20 capsule Sulfamethoxazole/Trimethoprim [Bactrim Ds Tablet] 1 each PO BID #20 tablet 04/26 Cyclobenzaprine HCl [Flexeril 5 mg Tablet] 5 mg PO TID #9 tablet 08/25/17 Sulfamethoxazole/Trimethoprim [Bactrim Ds Tablet] 1 each PO BID #20 tablet 11/09 Tramadol HCl [Ultram 50 mg Tablet] 50 mg PO ASDIR PRN #15 tablet 11/09/17 Allergies/Adverse Reactions: lorazepam [From Ativan] Adverse Reaction (Mild, Verified 11/09/17 13:47) N&V, High fever Review of Systems Constitutional: PRESENT: chills, fever(s). ABSENT: headache(s), night sweats Eyes: ABSENT: visual disturbances Ears: ABSENT: hearing changes Nose, Mouth, and Throat: ABSENT: sore throat Breasts: PRESENT: other - Pain, redness, swelling of the right breast at the 8 o 'clock position. Cardiovascular: ABSENT: chest pain, dyspnea on exertion, edema, palpitations Respiratory: ABSENT: cough, dyspnea, hemoptysis Gastrointestinal: ABSENT: abdominal pain, bloating, diarrhea, hematemesis, hematochezia, nausea, vomiting Genitourinary: ABSENT: dysuria Musculoskeletal: ABSENT: joint swelling Integumentary: PRESENT: erythema - Right breast Neurological: ABSENT: abnormal movements, focal weakness, memory loss, weakness Psychiatric: ABSENT: anxiety, depression, hallucinations Endocrine: ABSENT: cold intolerance, heat intolerance Hematologic/Lymphatic: ABSENT: easy bleeding, easy bruising Physical Exam Vital Signs: Temp Pulse Resp BP Pulse Ox 98.5 F 80 16 144/85 H 99 11/09/17 16:11 11/09/17 16:11 11/09/17 16:11 11/09/17 16:11 11/09/17 16:11 Intake & Output 11/08/17 11/09/17 11/10/17 06:59 06:59 06:59 Weight 115.8 kg General appearance: PRESENT: no acute distress, obese Head exam: PRESENT: atraumatic, normocephalic Eye exam: PRESENT: EOMI, PERRLA. ABSENT: conjunctival injection, scleral icterus Mouth exam: PRESENT: moist, neck supple Teeth exam: ABSENT: poor dentation Neck exam: ABSENT: lymphadenopathy, meningismus, tenderness, thyromegaly, tracheal deviation Respiratory exam: PRESENT: clear to auscultation citlalli. ABSENT: accessory muscle use, chest wall tenderness, rales, rhonchi, stridor, tachypnea Cardiovascular exam: PRESENT: RRR Vascular exam: PRESENT: normal capillary refill. ABSENT: pallor GI/Abdominal exam: PRESENT: normal bowel sounds, soft. ABSENT: distended, guarding, rebound, tenderness Extremities exam: ABSENT: joint swelling, pedal edema Musculoskeletal exam: PRESENT: normal inspection Neurological exam: PRESENT: alert, awake, oriented to person, oriented to place , oriented to time, CN II-XII grossly intact. ABSENT: motor sensory deficit Psychiatric exam: ABSENT: agitated, anxious, depressed Skin exam: PRESENT: erythema, other - Right breast with fluctuant, erythematous , tender area at the 8 o'clock position adjacent to the areola.. ABSENT: cyanosis, jaundice, rash Assessment & Plan - Plan Summary Plan Summary: This is a 32-year-old female with a right breast abscess. I have discussed her options at length. These include percutaneous aspiration with antibiotics versus incision and drainage. The patient has chosen incision and drainage. I will perform this at the bedside today. The ER nurse practitioner will provide the patient with pain medication and antibiotics. The patient is to follow-up with me next week in the office. Risks/Benefits discussed, informed consent obtained, and all questions answered.
--- NOTE | 2017-11-09 20:54 | Operative Report ---
Nonrecallable Operative Report DATE OF SURGERY: 11/09/17 PREOPERATIVE DIAGNOSIS: Right breast abscess POSTOPERATIVE DIAGNOSIS: Same as above OPERATION: Incision and drainage of a right breast abscess SURGEON: SUJATA EVANS ANESTHESIA: Local COMPLICATIONS: None apparent ESTIMATED BLOOD LOSS: Minimal PROCEDURE: After informed consent was obtained, the patient was laid in the emergency department in the supine position. The area of the right breast was prepped and draped in a normal sterile fashion. 1% lidocaine was used to anesthetize the skin of the right breast, adjacent to the nipple. An 11 blade scalpel was used to create an incision over the area of fluctuance. A moderate amount of purulent material was encountered. The abscess cavity was irrigated. The wound was packed with a 4 x 4 gauze. A dressing was fashioned, and the procedure was concluded. All sponge, instrument, and needle counts were correct 2. Condition: Stable.
== END 2017-11-09 16:12 | disposition home or self-care (01) ==
LOC: ER 13:45
PROC: 0H9TXZZ (ICD-10-PCS; principal; 2017-11-09)
DX: N61.1 Abscess of the breast and nipple (principal); I10 Essential (primary) hypertension; J45.909 Unspecified asthma, uncomplicated
CPT/HCPCS: 99284; 96374; 10060; J2270; J3490

== ENCOUNTER 2018-01-10 18:00 | Emergency (ER) | payer MEDICAID ==
[2018-01-10 18:43] LABS: ABSOLUTE BASOPHILS # (AUTO) 0.1 10^3/uL (0.0-0.2); ABSOLUTE EOSINOPHILS # (AUTO) 0.2 10^3/uL (0.0-0.6); ABSOLUTE LYMPHOCYTES (AUTO) 2.7 10^3/uL (0.5-4.7); ABSOLUTE MONOCYTES (AUTO) 0.4 10^3/uL (0.1-1.4); ABSOLUTE NEUT (AUTO) 3.2 10^3/uL (1.7-8.2); EOSINOPHILS % (AUTO) 3.1 % (0-6); HEMATOCRIT 36.7 % (36.0-47.0); HEMOGLOBIN 12.1 g/dL (12.0-15.5); LYMPHOCYTES % (AUTO) 41.7 % (13-45); MEAN CORPUSCULAR HEMOGLOBIN 26.6 pg (27.0-33.4); MEAN CORPUSCULAR VOLUME 81 fl (80-97); MONOCYTES % (AUTO) 5.4 % (3-13); PLATELET COUNT 328 10^3/uL (150-450); RED BLOOD COUNT 4.56 10^6/uL (3.72-5.28); RED CELL DISTRIBUTION WIDTH 15.9 % (11.5-14.0); SEGMENTED NEUTROPHILS % (AUTO) 48.8 % (42-78); TOTAL CELLS COUNTED % (AUTO) 100 %; WHITE BLOOD COUNT 6.5 10^3/uL (4.0-10.5)
[2018-01-10 18:54] LABS: AMORPHOUS SEDIMENT,URINE TRACE /HPF; APPEARANCE,URINE CLOUDY; BILIRUBIN,URINE SMALL (NEGATIVE); COLOR,URINE AMBER; GLUCOSE, URINE NEGATIVE (NEGATIVE); KETONES,URINE NEGATIVE (NEGATIVE); LEUKOCYTE ESTERASE,URINE SMALL (NEGATIVE); NITRITE,URINE NEGATIVE (NEGATIVE); PROTEIN,URINE 100 mg/dL (NEGATIVE); URINE SPECIFIC GRAVITY 1.033
[2018-01-10 19:07] LABS: URINE AMPHETAMINES SCREEN NEGATIVE; URINE BARBITURATES SCREEN NEGATIVE; URINE BENZODIAZEPINES SCREEN NEGATIVE; URINE COCAINE SCREEN NEGATIVE; URINE MARIJUANA (THC) SCREEN UNCONFIRMED POSITIVE; URINE METHADONE SCREEN NEGATIVE; URINE PHENCYCLIDINE SCREEN NEGATIVE
[2018-01-10 19:46] LABS: ALANINE AMINOTRANSFERASE 22 U/L (9-52); ALBUMIN 3.8 g/dL (3.5-5.0); ALKALINE PHOSPHATASE 76 U/L (38-126); ANION GAP 8 (5-19); ASPARTATE AMINO TRANSFERASE 28 U/L (14-36); BILIRUBIN,DIRECT 0.3 mg/dL (0.0-0.4); BILIRUBIN,TOTAL 0.5 mg/dL (0.2-1.3); BLOOD UREA NITROGEN 11 mg/dL (7-20); CALCIUM 8.6 mg/dL (8.4-10.2); CARBON DIOXIDE 29 mmol/L (22-30); CHLORIDE 108 mmol/L (98-107); GLUCOSE 79 mg/dL (75-110); POTASSIUM 3.4 mmol/L (3.6-5.0); SODIUM 144.7 mmol/L (137-145); TOTAL PROTEIN 7.1 g/dL (6.3-8.2)
[2018-01-10 19:48] LABS: ACETAMINOPHEN < 10 ug/mL (10-30); ALCOHOL < 10 mg/dL (NONE DETECTED); SALICYLATE < 1.0 mg/dL (2.0-20.0)
--- NOTE | 2018-01-10 22:01 | ER Document Report ---
ED General - General Chief Complaint: Possible Overdose Stated Complaint: POSSIBLE OVERDOSE Time Seen by Provider: 01/10/18 18:34 Notes: Patient is a 32 year old female who presents after apparently ingesting an unclear quantity of Ambien, trazodone and Seroquel shortly prior to arrival. The patient states that she took "a few" of each of these pills but states "I still have lots left in the bottle". She states that she did this apparently so she could sleep and denies any self-harm or suicidal intention behind doing so. She does state that this however is not normal behavior for her and that the motivation was that she had apparently gotten into an argument with a friend or family member. She states that she wanted to go to sleep for a long period of time without waking up. She does again deny though that there was any intent to in taking these medications. She denies any history of suicide attempts. She denies any additional coingestions. She states that she told her garment finisher about this action and was encouraged to come to the emergency department. TRAVEL OUTSIDE OF THE [place] IN LAST 30 DAYS: No - HPI Onset: Just prior to arrival Onset/Duration: Sudden Quality of pain: No pain Severity: None Pain Level: Denies Associated symptoms: None Exacerbated by: Denies Relieved by: Denies Similar symptoms previously: No Recently seen / treated by doctor: No - Related Data Allergies/Adverse Reactions: lorazepam [From Ativan] Adverse Reaction (Mild, Verified 01/10/18 18:02) N&V, High fever Past Medical History - General Information source: Patient - Social History Smoking Status: Current Every Day Smoker Frequency of alcohol use: Rare Drug Abuse: Marijuana Lives with: Family Family History: Arthritis, CAD, DM, Hyperlipidemia, Hypertension, Malignancy Patient has suicidal ideation: No Patient has homicidal ideation: No - Past Medical History Cardiac Medical History: Reports: Hx Hypertension Pulmonary Medical History: Reports: Hx Asthma Neurological Medical History: Renal/ Medical History: Reports: Hx Ovarian Cysts. Denies: Hx Peritoneal Dialysis Musculoskeltal Medical History: Reports Hx Arthritis - hands Skin Medical History: Reports Hx Cellulitis Psychiatric Medical History: Reports: Hx Bipolar Disorder, Hx Schizophrenia Past Surgical History: Reports: Hx Breast Surgery - L cyst, multiple left I&Ds, Hx Section - x2, Other - History of multiple breast abscesses incision and drainage. - Immunizations Immunizations up to date: Yes Hx Diphtheria, Pertussis, Tetanus Vaccination: Yes Hx Pneumococcal Vaccination: 04/22/14 Review of Systems - Review of Systems Notes: Constitutional: Negative for fever. HENT: Negative for sore throat. Eyes: Negative for visual changes. Cardiovascular: Negative for chest pain. Respiratory: Negative for shortness of breath. Gastrointestinal: Negative for abdominal pain, vomiting or diarrhea. Genitourinary: Negative for dysuria. Musculoskeletal: Negative for back pain. Skin: Negative for rash. Neurological: Negative for headaches, weakness or numbness. 10 point ROS negative except as marked above and in HPI. Physical Exam - Vital signs Vitals: Temp Pulse Resp BP Pulse Ox 98.8 F 105 H 20 128/80 H 97 01/10/18 18:04 01/10/18 18:04 01/10/18 18:04 01/10/18 18:04 01/10/18 18:04 Interpretation: Tachycardic Notes: PHYSICAL EXAMINATION: GENERAL: Well-appearing, well-nourished and in no acute distress. HEAD: Atraumatic, normocephalic. EYES: Pupils equal round and reactive to light, extraocular movements intact, sclera anicteric, conjunctiva are normal. ENT: nares patent, oropharynx clear without exudates. Moist mucous membranes. NECK: Normal range of motion, supple without lymphadenopathy LUNGS: Breath sounds clear to auscultation bilaterally and equal. No wheezes rales or rhonchi. HEART: Regular rate and rhythm without murmurs ABDOMEN: Soft, nontender, normoactive bowel sounds. No guarding, no rebound. No masses appreciated. EXTREMITIES: Normal range of motion, no pitting or edema. No cyanosis. NEUROLOGICAL: No focal neurological deficits. Moves all extremities spontaneously and on command. PSYCH: Seems ambivalent to being in the emergency department for her actions today. Denies any suicidal or homicidal ideation. SKIN: Warm, Dry, normal turgor, no rashes or lesions noted. Course - Re-evaluation Re-evalutation: 01/10/18 22:00 Patient presents after taking "a handful" of trazodone, Seroquel, and Ambien stating that she wanted to "sleep for a couple days without waking up". She denies that this is a suicide attempt. States that she did want to wake up but that she does want to be left alone for a few days. She told her garment finisher about this who referred her to the emergency department. The patient denies any current suicidal ideation. She denies ever having done something similar in the past. Patient does not meet involuntary criteria but has elected to remain in the emergency department to sleep psychiatry in the morning. She is medically cleared. - Vital Signs Vital signs: Temp Pulse Resp BP Pulse Ox 98.8 F 105 H 15 111/55 L 98 01/10/18 18:04 01/10/18 18:04 01/11/18 01:00 01/11/18 00:01 01/10/18 23:01 - Laboratory Result Diagrams: 01/10/18 18:16 01/10/18 19:00 Laboratory results interpreted by me: 01/10/18 01/10/18 01/10/18 18:16 18:16 19:00 MCH 26.6 L RDW 15.9 H Potassium 3.4 L Chloride 108 H Urine Protein 100 H Urine Blood LARGE H Urine Bilirubin SMALL H Urine Urobilinogen 4.0 H Ur Leukocyte Esterase SMALL H Urine Ascorbic Acid 40 H Salicylates < 1.0 L Acetaminophen < 10 L - EKG Interpretation by Me Additional EKG results interpreted by me: 01/11/18 03:06 Sinus rhythm. Rate 102. No ST elevations or depressions. QTC is 464. Discharge - Discharge Clinical Impression: Drug abuse Polysubstance overdose Qualifiers: Encounter type: initial encounter Injury intent: undetermined intent Qualified Code(s): T50.904A - Poisoning by unspecified drugs, medicaments and biological substances, undetermined, initial encounter Condition: Fair Referrals: TE HARRIS MD [Primary Care Provider] - Follow up as needed
--- NOTE | 2018-01-10 22:58 | EKG REPORT ---
SEVERITY:- NORMAL ECG - SINUS TACHYCARDIA : Confirmed by: Silvia Andrea MD 10-Jan-2018 22:57:43
[2018-01-10] MEDS ORDERED: ACETAMINOPHEN 325 MG TABLET PO ONE (23:05)
--- NOTE | 2018-01-11 10:09 | ER Document Report ---
Doctor's Note Notes: 01/11/18 10:09 Patient came in yesterday evening following an overdose. At this time she is alert, oriented, and ready to be discharged. She will be discharged with a list of community resources and recommendations. She is medically stable for discharge.
[2018-01-11 11:18] VITALS: BP 123/66
== END 2018-01-11 11:18 | disposition home or self-care (01) ==
LOC: ER 18:00
DX: T42.6X4A Poisoning by other antiepileptic and sedative-hypnotic drugs, undetermined, initial encounter (principal); T43.214A Poisoning by selective serotonin and norepinephrine reuptake inhibitors, undetermined, initial encounter; T43.594A Poisoning by other antipsychotics and neuroleptics, undetermined, initial encounter; F12.10 Cannabis abuse, uncomplicated; F17.200 Nicotine dependence, unspecified, uncomplicated; I10 Essential (primary) hypertension; J45.909 Unspecified asthma, uncomplicated
CPT/HCPCS: 93005; 99284; 36415; 80307 ×4; 84703; 85025; 80053; 81001; 93010; J3490

== ENCOUNTER 2018-06-10 21:29 | Emergency (ER) | payer MEDICAID ==
[2018-06-10] MEDS ORDERED: ACETAMINOPHEN 325 MG TABLET PO ONE (23:03)
[2018-06-10] MEDS ORDERED: IBUPROFEN 800 MG TABLET PO ONE (23:29)
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
[2018-06-10 23:50] VITALS: BP 145/79
== END 2018-06-10 23:50 | disposition home or self-care (01) ==
LOC: ER 21:29
DX: M25.511 Pain in right shoulder (principal); M54.5 Low back pain; I10 Essential (primary) hypertension; J45.909 Unspecified asthma, uncomplicated; F17.210 Nicotine dependence, cigarettes, uncomplicated; Z71.6 Tobacco abuse counseling
CPT/HCPCS: 99283; J3490

== ENCOUNTER 2018-11-11 17:42 | Emergency (ER) | payer MEDICAID ==
--- NOTE | 2018-11-11 20:14 | ER Document Report ---
ED Medical Screen (RME) - General Chief Complaint: Cyst Stated Complaint: POSSIBLE CYST Time Seen by Provider: 11/11/18 20:07 Primary Care Provider: TE HARRIS MD [Primary Care Provider] - Follow up as needed Mode of Arrival: Ambulatory Information source: Patient TRAVEL OUTSIDE OF THE [place] IN LAST 30 DAYS: No - HPI Patient complains to provider of: RIGHT BREAST PAIN Notes: 11/11/18 20:13 Patient is here with complaints of possible abscess to the right breast. She has had these in the past. She states a few days ago she noticed a red swollen area to the lateral aspect of the right nipple, this opened up and drained, she now has a tender swollen red area to the medial aspect of the right nipple. No nipple discharge. No fever. Exam Nontoxic, no distress. Lungs clear and equal throughout. Heart sounds normal. Breast exam performed with female propellant assembler at the bedside. Patient noted to have an indurated, red, tender area underneath the areole and nipple and medial to the areole of the right breast. No active drainage. Plan CBC, CMP, right breast ultrasound. An initial examination was made on the patient as part of the triage process, and it was determined a more comprehensive evaluation was necessary. Initial labs were ordered and patient was transferred to another provider in the ED who assumed care and finished evaluation and plan. - Related Data Allergies/Adverse Reactions: lorazepam [From Ativan] Adverse Reaction (Mild, Verified 11/11/18 17:53) N&V, High fever Past Medical History - Social History Family history: Reviewed & Not Pertinent - Past Medical History Cardiac Medical History: Reports: Hx Hypertension Pulmonary Medical History: Reports: Hx Asthma Neurological Medical History: Renal/ Medical History: Reports: Hx Ovarian Cysts. Denies: Hx Peritoneal Dialysis Musculoskeltal Medical History: Reports Hx Arthritis - hands Skin Medical History: Reports Hx Cellulitis Psychiatric Medical History: Reports: Hx Bipolar Disorder, Hx Schizophrenia Past Surgical History: Reports: Hx Breast Surgery - L cyst, multiple left I&Ds, Hx Section - x2, Other - Immunizations Immunizations up to date: Yes Hx Diphtheria, Pertussis, Tetanus Vaccination: Yes Physical Exam - Vital signs Vitals: Temp Pulse Resp BP Pulse Ox 98.2 F 85 18 152/85 H 100 11/11/18 18:06 11/11/18 18:06 11/11/18 18:06 11/11/18 18:06 11/11/18 18:06 Course - Vital Signs Vital signs: Temp Pulse Resp BP Pulse Ox 98.2 F 85 18 152/85 H 100 11/11/18 18:06 11/11/18 18:06 11/11/18 18:06 11/11/18 18:06 11/11/18 18:06 Doctor's Discharge - Discharge Referrals: TE HARRIS MD [Primary Care Provider] - Follow up as needed
[2018-11-11 20:50] LABS: ABSOLUTE BASOPHILS # (AUTO) 0.1 10^3/uL (0.0-0.2); ABSOLUTE EOSINOPHILS # (AUTO) 0.1 10^3/uL (0.0-0.6); ABSOLUTE LYMPHOCYTES (AUTO) 3.1 10^3/uL (0.5-4.7); ABSOLUTE MONOCYTES (AUTO) 0.3 10^3/uL (0.1-1.4); BASOPHILS % (AUTO) 1.3 % (0-2); EOSINOPHILS % (AUTO) 1.6 % (0-6); HEMOGLOBIN 11.9 g/dL (12.0-15.5); LYMPHOCYTES % (AUTO) 40.2 % (13-45); MEAN CORPUSCULAR HEMOGLOBIN 25.7 pg (27.0-33.4); MEAN CORPUSCULAR HGB CONC 32.1 g/dL (32.0-36.0); MEAN CORPUSCULAR VOLUME 80 fl (80-97); MONOCYTES % (AUTO) 4.1 % (3-13); PLATELET COUNT 399 10^3/uL (150-450); RED BLOOD COUNT 4.62 10^6/uL (3.72-5.28); RED CELL DISTRIBUTION WIDTH 16.2 % (11.5-14.0); SEGMENTED NEUTROPHILS % (AUTO) 52.8 % (42-78); TOTAL CELLS COUNTED % (AUTO) 100 %; WHITE BLOOD COUNT 7.6 10^3/uL (4.0-10.5)
[2018-11-11 21:21] LABS: ALANINE AMINOTRANSFERASE 18 U/L (9-52); ALBUMIN 4.2 g/dL (3.5-5.0); ALKALINE PHOSPHATASE 72 U/L (38-126); ANION GAP 12 (5-19); ASPARTATE AMINO TRANSFERASE 20 U/L (14-36); BILIRUBIN,DIRECT 0.2 mg/dL (0.0-0.4); BILIRUBIN,TOTAL 0.4 mg/dL (0.2-1.3); BLOOD UREA NITROGEN 12 mg/dL (7-20); CALCIUM 9.3 mg/dL (8.4-10.2); CARBON DIOXIDE 26 mmol/L (22-30); CHLORIDE 108 mmol/L (98-107); GLUCOSE 91 mg/dL (75-110); POTASSIUM 3.6 mmol/L (3.6-5.0); SODIUM 145.6 mmol/L (137-145); TOTAL PROTEIN 7.8 g/dL (6.3-8.2)
[2018-11-11] MEDS ORDERED: KETOROLAC TROMETHAMINE 60 MG/2 ML SDV IM ONE (21:55)
--- NOTE | 2018-11-11 22:08 | RADIOLOGY REPORT (SQ) ---
EXAM DESCRIPTION: US BREAST UNILATERAL LIMITED COMPLETED DATE/TME: 11/11/2018 20:10 CLINICAL HISTORY: RIGHT BREAST ABSCESS COMPARISON: None. FINDINGS: Sonographic images of the right breast were obtained at the 3:00 position. There is a 1.9 x 2.5 x 0.6 cm hypoechoic lesion without internal flow worrisome for an abscess. This is located 1 cm from patient's nipple. IMPRESSION: Above findings could represent an abscess. Recommend follow-up.
[2018-11-11] MEDS ORDERED: LIDOCAINE 1% INJ-PF (10 MG/ML) 30 ML SDV INJ ONE (23:38)
[2018-11-12] MEDS ORDERED: OXYCODONE-ACETAMINOPHEN 5-325 MG TABLET PO ONE (00:16)
[2018-11-12] MEDS ORDERED: SULFAMETHOXAZOLE/TRIMETHOPRIM 800-160 MG TABLET PO ONE (00:21)
[2018-11-12] MEDS ORDERED: CEPHALEXIN 500 MG CAPSULE PO ONE (00:21)
--- NOTE | 2018-11-12 00:22 | ER Document Report ---
ED Skin Rash/Insect Bite/Abscs - General Chief Complaint: Cyst Stated Complaint: POSSIBLE CYST Time Seen by Provider: 11/11/18 20:07 Primary Care Provider: TE HARRIS MD [ACTIVE STAFF] - Follow up as needed Mode of Arrival: Ambulatory Information source: Patient Notes: Patient is a 33-year-old female comes emergency room complaining of a right- sided lump on her breast. She states that is been there for approximately 2 years but in the past 3 to 4 days is gotten much bigger. States that she has a history of the same thing on the left side and the reason she did not get this when taking care of before was a it was small and be she did not want to have an other surgery on her breast again. Patient states that she only has a history of insomnia as well as some psych problems. She smokes approximately 4 cigarettes daily her last menstrual period is current she does not take control and she has not had a tubal ligation but she states she is not sexually active. Patient states that the area was only the size of the small pebble until 3 days ago and it turned into a large volume was tender warm area. She does admit that they have a history of family breast cancer but she has not been checked in a while. TRAVEL OUTSIDE OF THE [place] IN LAST 30 DAYS: No - HPI Patient complains to provider of: Tender/swollen area Onset: Other - 2 years worse past 3 days Onset/Duration: Gradual, Persistent, Worse Quality of pain: Pressure, Sharp, Throbbing Severity: Moderate Pain Level: 3 Skin Character: Abscess Skin Temperature: Hot Quality of rash: Painful Identify cause: No Similar symptoms previously: Yes Recently seen / treated by doctor: No - Related Data Allergies/Adverse Reactions: lorazepam [From Ativan] Adverse Reaction (Mild, Verified 11/11/18 17:53) N&V, High fever Past Medical History - General Information source: Patient - Social History Smoking Status: Current Every Day Smoker Cigarette use (# per day): Yes - 4 cigarettes a day Chew tobacco use (# tins/day): No Smoking Education Provided: No Frequency of alcohol use: None Drug Abuse: None Lives with: Family Family History: Reviewed & Not Pertinent, Arthritis, CAD, DM, Hyperlipidemia, Hypertension, Malignancy Patient has suicidal ideation: No Patient has homicidal ideation: No - Past Medical History Cardiac Medical History: Reports: Hx Hypertension Pulmonary Medical History: Reports: Hx Asthma Neurological Medical History: Renal/ Medical History: Reports: Hx Ovarian Cysts. Denies: Hx Peritoneal Dialysis Musculoskeletal Medical History: Reports Hx Arthritis - hands Skin Medical History: Reports Hx Cellulitis Psychiatric Medical History: Reports: Hx Bipolar Disorder, Hx Schizophrenia Past Surgical History: Reports: Hx Breast Surgery - L cyst, multiple left I&Ds, Hx Section - x2, Other - Immunizations Immunizations up to date: Yes Hx Diphtheria, Pertussis, Tetanus Vaccination: Yes Hx Pneumococcal Vaccination: 04/22/14 Review of Systems - Review of Systems Constitutional: No symptoms reported EENT: No symptoms reported Cardiovascular: No symptoms reported Respiratory: No symptoms reported Gastrointestinal: No symptoms reported Genitourinary: No symptoms reported Female Genitourinary: No symptoms reported Musculoskeletal: No symptoms reported Skin: See HPI, Other - Abscess Hematologic/Lymphatic: No symptoms reported Neurological/Psychological: No symptoms reported -: Yes All other systems reviewed and negative Physical Exam - Vital signs Vitals: Temp Pulse Resp BP Pulse Ox 98.2 F 85 18 152/85 H 100 11/11/18 18:06 11/11/18 18:06 11/11/18 18:06 11/11/18 18:06 11/11/18 18:06 Interpretation: Hypertensive - Notes Notes: PHYSICAL EXAMINATION: GENERAL: Patient is a well-nourished well-developed 33-year-old female who is in no apparent distress on physical exam however she does appear somewhat uncomfortable. HEAD: Atraumatic, normocephalic. EYES: Pupils equal round and reactive to light, extraocular movements intact, conjunctiva are normal. ENT: Nares patent, oropharynx clear without exudates. Moist mucous membranes. LUNGS: Breath sounds clear to auscultation bilaterally and equal. No wheezes rales or rhonchi. HEART: Regular rate and rhythm without murmurs Female : deferred NEUROLOGICAL:Normal speech, normal gait. Normal sensory, motor exams PSYCH: Normal mood, normal affect. SKIN: Patient is very concern is her right breast more specifically it is at the 3 o'clock position and extends from 1 cm from the nipple out about 3-1/2 cm. It is also approximately 3/2 cm high and appears to be approximately half a centimeter deep if not three quarters of a centimeter deep. Ultrasound shows that there is a 1 x 9 x 2 0.5 x 0.6 cm hypoechoic lesion without internal flow worrisome for an abscess. Patient is moderate tenderness to palpation of the area there is extension of cellulitis that goes beyond this localized area up out of 6 cm in all directions to the left of the nipple. It does not come back across the area Nicola. Course - Vital Signs Vital signs: Temp Pulse Resp BP Pulse Ox 98.2 F 85 18 152/85 H 100 11/11/18 18:06 11/11/18 18:06 11/11/18 18:06 11/11/18 18:06 11/11/18 18:06 - Laboratory Result Diagrams: 11/11/18 20:31 11/11/18 20:31 Laboratory results interpreted by me: 11/11/18 11/11/18 20:31 20:31 Hgb 11.9 L MCH 25.7 L RDW 16.2 H Sodium 145.6 H Chloride 108 H Procedures - Incision and Drainage Right Chest Time completed: 00:28 Type: Complex Anesthetic type: 1% Lidocaine mL's of anesthetic: 3 Blade size: 11 I&D procedure: Betadine prep applied Incision Method: Incision made by scalpel Amount/type of drainage: Large amount Notes: 11/12/18 00:28 I made approximately a three-quarter centimeter incision just to the right of t he 3 o'clock position of the right nipple. Just to the borderline of the area [place]. I was able to push down until I felt a slight give and I had a large return of whitish fluidic pus come out of the area. It had no odor to it. I was able to express a large amount over. Of time and a sufficient amount to get a good wound culture. I then used the curved pickups and did going to break up the loculations given such a small hole I did not get to flush the area. After that I applied quarter inch iodoform approximately 3 inches into the area to keep it open draining. We then take down the end of the iodoform and put a bulky dressing on top of the nipple area. Patient tolerated this without any problem at all. I am sending her home on antibiotics and have her follow-up in 48 hours. Discharge - Discharge Clinical Impression: Abscess of right breast, Smoker Condition: Stable Disposition: HOME, SELF-CARE Instructions: Abscess ([facility]), Cephalexin ([facility]), MRSA Cellulitis ([facility]), Oral Narcotic Medication ([facility]), Post Incision and Drainage, Trimethoprim-Sulfa ([facility]) Additional Instructions: Home and rest. Medication as prescribed. Use warm moist compresses 3-4 times a day for 15 to 20 minutes. This is a wash rag as warm as you can stand from the sink without putting it into a microwave. Do not get it so hot as to cause a burning to breast area. You may take a shower but do not submerge yourself in a pool/whirlpool/ocean/[place]el[place]/river. The whole must be closed up before this happens. A shower is okay to let the water run across the top and down. Use an antibiotic soap. I would like you back in 48 hours to have the packing removed and the wound inspected one more time. Should for any reason that you feel like in the next 48 hours is not healing properly or you are having problems with a come back much sooner. Prescriptions: Cephalexin [Cephalexin 500 MG Tablet] 1 tab PO QID 7 Days #28 tablet Fluconazole [Diflucan] 150 mg PO ONCE PRN #1 tablet PRN Reason: Hydrocodone/Acetaminophen [[place] 5-325 mg Tablet] 1 tab PO Q6 PRN #8 tablet PRN Reason: Sulfamethoxazole/Trimethoprim [Bactrim Ds Tablet] 1 each PO BID #20 tablet Forms: Elevated Blood Pressure, Smoking Cessation Education, Return to Work Referrals: TE HARRIS MD [ACTIVE STAFF] - Follow up as needed
[2018-11-12 01:28] VITALS: BP 145/82
== END 2018-11-12 00:56 | disposition home or self-care (01) ==
LOC: ER 17:42
PROC: 0H9TXZZ (ICD-10-PCS; principal; 2018-11-11)
DX: N61.1 Abscess of the breast and nipple (principal); F17.210 Nicotine dependence, cigarettes, uncomplicated; Z80.3 Family history of malignant neoplasm of breast; I10 Essential (primary) hypertension; J45.909 Unspecified asthma, uncomplicated
CPT/HCPCS: 99284; 36415; 87070; 87205; 85025; 87075; 80053; 76642; 10060; A6266; J1885; J3490 ×2

== ENCOUNTER 2019-03-16 16:38 | Emergency (ER) | payer MEDICAID ==
[2019-03-16] MEDS ORDERED: ACETAMINOPHEN 325 MG TABLET PO ONE (16:52)
--- NOTE | 2019-03-16 16:54 | ER Document Report ---
ED Medical Screen (RME) - General Chief Complaint: Abscess Stated Complaint: RIGHT BREAST PAIN Time Seen by Provider: 03/16/19 16:52 Mode of Arrival: Ambulatory Information source: Patient Notes: 33-year-old female presented to ED for right breast abscess. She stated it is very painful and she needs some help with that. She does want some Tylenol while she waits to be examined. She states she has had abscesses removed in the past. She is alert oriented respirations regular and unlabored. States only medical history is abscesses and surgeries are the abscess removals and C- section. She states she smokes 3 or 4 cigarettes a day drinks maybe once a year and smokes a lot of marijuana. Patient is nontoxic in appearance I have greeted and performed a rapid initial assessment of this patient. A comprehensive ED assessment and evaluation of the patient, analysis of test results and completion of medical decision making process will be conducted by an additional ED providers. TRAVEL OUTSIDE OF THE [place] IN LAST 30 DAYS: No - Related Data Allergies/Adverse Reactions: lorazepam [From Ativan] Adverse Reaction (Mild, Verified 03/16/19 16:39) N&V, High fever Past Medical History - Social History Family history: Reviewed & Not Pertinent - Past Medical History Cardiac Medical History: Reports: Hx Hypertension Pulmonary Medical History: Reports: Hx Asthma Neurological Medical History: Renal/ Medical History: Reports: Hx Ovarian Cysts. Denies: Hx Peritoneal Dialysis Musculoskeltal Medical History: Reports Hx Arthritis - hands Skin Medical History: Reports Hx Cellulitis Psychiatric Medical History: Reports: Hx Bipolar Disorder, Hx Schizophrenia Past Surgical History: Reports: Hx Breast Surgery - L cyst, multiple left I&Ds, Hx Section - x2, Other - Immunizations Immunizations up to date: Yes Hx Diphtheria, Pertussis, Tetanus Vaccination: Yes Physical Exam - Vital signs Vitals: Temp Pulse Resp BP Pulse Ox 98.4 F 95 18 136/79 H 100 03/16/19 16:42 03/16/19 16:42 03/16/19 16:42 03/16/19 16:42 03/16/19 16:42 Course - Vital Signs Vital signs: Temp Pulse Resp BP Pulse Ox 98.4 F 95 18 136/79 H 100 03/16/19 16:42 03/16/19 16:42 03/16/19 16:42 03/16/19 16:42 03/16/19 16:42
--- NOTE | 2019-03-16 17:17 | ER Document Report ---
ED Skin Rash/Insect Bite/Abscs - General Chief Complaint: Abscess Stated Complaint: RIGHT BREAST PAIN Time Seen by Provider: 03/16/19 16:52 Primary Care Provider: TE HARRIS MD [Primary Care Provider] - Follow up as needed GABRIELLA WILCOX PA-C [ALLIED HEALTH PROFESSIONAL] - 03/30/19 Mode of Arrival: Ambulatory Notes: 33-year-old female with history of abscesses presents to the emergency department with 3 abscesses on her right breast that involve the area [place]. Patient states that she has had one since child that has "came and gone". Patient states she currently has one on both the medial and lateral aspects of her area [place] and is in acute pain. Patient states that she has required surgery in the past for these abscesses. Patient denies any fevers or chills, acute shortness of breath or chest pain, nausea or vomiting, denies any other abscesses. No other complaints TRAVEL OUTSIDE OF THE [place] IN LAST 30 DAYS: No - Related Data Allergies/Adverse Reactions: lorazepam [From Ativan] Adverse Reaction (Mild, Verified 03/16/19 16:39) N&V, High fever Past Medical History - General Information source: Patient - Social History Smoking Status: Unknown if Ever Smoked Family History: Reviewed & Not Pertinent, Arthritis, CAD, DM, Hyperlipidemia, Hypertension, Malignancy - Past Medical History Cardiac Medical History: Reports: Hx Hypertension Pulmonary Medical History: Reports: Hx Asthma Neurological Medical History: Renal/ Medical History: Reports: Hx Ovarian Cysts. Denies: Hx Peritoneal Dialysis Musculoskeletal Medical History: Reports Hx Arthritis - hands Skin Medical History: Reports Hx Cellulitis Psychiatric Medical History: Reports: Hx Bipolar Disorder, Hx Schizophrenia Past Surgical History: Reports: Hx Breast Surgery - L cyst, multiple left I&Ds, Hx Section - x2, Other - Immunizations Immunizations up to date: Yes Hx Diphtheria, Pertussis, Tetanus Vaccination: Yes Hx Pneumococcal Vaccination: 04/22/14 Review of Systems - Review of Systems Constitutional: See HPI EENT: No symptoms reported Cardiovascular: See HPI Respiratory: See HPI Gastrointestinal: No symptoms reported Genitourinary: No symptoms reported Female Genitourinary: No symptoms reported Musculoskeletal: No symptoms reported Skin: See HPI Hematologic/Lymphatic: No symptoms reported Neurological/Psychological: No symptoms reported Physical Exam - Vital signs Vitals: Temp Pulse Resp BP Pulse Ox 98.4 F 95 18 136/79 H 100 03/16/19 16:42 03/16/19 16:42 03/16/19 16:42 03/16/19 16:42 03/16/19 16:42 - Notes Notes: PHYSICAL EXAMINATION: Reviewed vital signs and charting by RN GENERAL: Alert, interacts well. No acute distress. HEAD: Normocephalic, atraumatic. EYES: Pupils equal and round. Extraocular movements intact. ENT: Oral mucosa moist, tongue midline. NECK: Full range of motion. Trachea midline. EXTREMITIES: Moves all 4 extremities spontaneously. No edema, No cyanosis. PSYCH: Normal affect, normal mood. SKIN: Warm, dry, normal turgor. Abscesses on patient's right breast, 1 lateral aspect of the areola with a area of fluctuance and a large area of induration extending underneath the nipple, one on the medial aspect involving the areola that is indurated and no area of fluctuance felt. Course - Re-evaluation Re-evalutation: 03/16/19 17:17 Nontoxic-appearing. A right breast limited ultrasound ordered prior to consulting surgery. 03/16/19 20:27 Right breast ultrasound was obtained after a significant delay was read worrisome for abscesses at the 3 and 9:00 positions of the right nipple. I called Dr. Beaulieu, in-house surgeon, and awaiting a callback or I will call him again. 03/16/19 23:35 Dr. Beaulieu came to the bedside and performed an incision and drainage of the abscesses. His recommendation was to give Ancef 1 g IM here in the emergency department and place her on Bactrim DS every 12 hours for 10 days. Patient will return here tomorrow for a dressing change. Patient understands plan and is ready for discharge. - Vital Signs Vital signs: Temp Pulse Resp BP Pulse Ox 98.3 F 90 16 144/84 H 100 03/16/19 23:36 03/16/19 23:36 03/16/19 23:36 03/16/19 23:36 03/16/19 23:36 - Laboratory Result Diagrams: 03/16/19 20:40 03/16/19 20:40 Laboratory results interpreted by me: 03/16/19 20:40 Hgb 11.6 L MCH 25.5 L RDW 18.4 H Discharge - Discharge Clinical Impression: Abscess Condition: Good Disposition: HOME, SELF-CARE Instructions: Abscess ([facility]), Post Incision and Drainage, Trimethoprim-Sulfa ([facility]) Additional Instructions: You were seen in the emergency department this evening for an abscess of your right breast. The surgeon drained them at the bedside. You must return to the emergency department tomorrow to get a dressing change. Also, follow-up with the [facility] in 2 weeks with Gabriella Menezes. Please return to the emergency department if you develop fever, you get worsening redness around the site, or you have any other concerning symptoms. Referrals: TE HARRIS MD [Primary Care Provider] - Follow up as needed GABRIELLA WILCOX PA-C [ALLIED HEALTH PROFESSIONAL] - 03/30/19
--- NOTE | 2019-03-16 19:55 | RADIOLOGY REPORT (SQ) ---
EXAM DESCRIPTION: Limited right breast sonogram. March 16, 2019 at 6:03 PM local time CLINICAL HISTORY: Abscesses involving areola COMPARISON: None. FINDINGS: Sonographic images of the right breast were obtained at the periareolar area/ 3:00 and 9:00 position. Images of the right axilla were also obtained. At the 9:00 position of the right breast, there is a heterogeneous hypoechoic structure measuring 1.3 x 0.9 x 1.4 cm worrisome for an abscess. Other etiologies are not excluded. There is no discrete flow within this structure. At the 3:00 position of the right breast 2 cm from patient's nipple, there is a 1.5 x 2.2 x 0.4 cm hypoechoic area just under the skin which could represent an infectious process. 2.1 x 1.4 x 0.9 cm hypoechoic structure is noted at the level of the right axilla which could represent a reactive lymph node. Other etiologies not excluded. IMPRESSION: Hyperechoic areas at the periareolar level as described above could represent abscesses/infectious process. Questionable reactive lymph node at the level of the right axilla. Infectious process cannot be excluded.
[2019-03-16] MEDS ORDERED: HYDROCODONE/ACETAMINOPHEN 5-325 MG TABLET PO ONE (20:41)
[2019-03-16 20:50] LABS: ABSOLUTE BASOPHILS # (AUTO) 0.1 10^3/uL (0.0-0.2); ABSOLUTE EOSINOPHILS # (AUTO) 0.2 10^3/uL (0.0-0.6); ABSOLUTE LYMPHOCYTES (AUTO) 3.3 10^3/uL (0.5-4.7); ABSOLUTE MONOCYTES (AUTO) 0.4 10^3/uL (0.1-1.4); ABSOLUTE NEUT (AUTO) 4.5 10^3/uL (1.7-8.2); BASOPHILS % (AUTO) 1.6 % (0-2); HEMATOCRIT 36.3 % (36.0-47.0); HEMOGLOBIN 11.6 g/dL (12.0-15.5); LYMPHOCYTES % (AUTO) 38.6 % (13-45); MEAN CORPUSCULAR HEMOGLOBIN 25.5 pg (27.0-33.4); MEAN CORPUSCULAR VOLUME 80 fl (80-97); MONOCYTES % (AUTO) 4.6 % (3-13); PLATELET COUNT 427 10^3/uL (150-450); RED BLOOD COUNT 4.55 10^6/uL (3.72-5.28); RED CELL DISTRIBUTION WIDTH 18.4 % (11.5-14.0); SEGMENTED NEUTROPHILS % (AUTO) 53.2 % (42-78); TOTAL CELLS COUNTED % (AUTO) 100 %; WHITE BLOOD COUNT 8.5 10^3/uL (4.0-10.5)
[2019-03-16 21:08] LABS: ALBUMIN 4.4 g/dL (3.5-5.0); ALKALINE PHOSPHATASE 83 U/L (38-126); ANION GAP 9 (5-19); ASPARTATE AMINO TRANSFERASE 28 U/L (14-36); BILIRUBIN,DIRECT 0.3 mg/dL (0.0-0.4); BILIRUBIN,TOTAL 0.5 mg/dL (0.2-1.3); BLOOD UREA NITROGEN 9 mg/dL (7-20); CALCIUM 9.8 mg/dL (8.4-10.2); CARBON DIOXIDE 26 mmol/L (22-30); CHLORIDE 104 mmol/L (98-107); GLUCOSE 90 mg/dL (75-110); POTASSIUM 4.4 mmol/L (3.6-5.0); TOTAL PROTEIN 7.7 g/dL (6.3-8.2)
[2019-03-16] MEDS ORDERED: LIDOCAINE 2% INJ (20 MG/ML) 20 ML MDV ONE (22:56)
[2019-03-16] MEDS ORDERED: LIDOCAINE 1%/EPINEPHRINE INJ 20 ML VIAL ONE (22:56)
--- NOTE | 2019-03-16 23:32 | PDOC CONSULTATION ---
Consultation Consult Date: 03/16/19 Provider Consulted: CRISTOFER WHYTE History of Present Illness Admission Date/PCP: TE HARRIS MD History of Present Illness: BRANDO GRUBER is a 33 year old female with a history of recurrent right breast abscesses who presents to the emergency room complaining of a draining abscess site from the right breast located at 9:00 near the areola as well as an open sore on the right breast located at 3:00 near the areolar. An ultrasound of the right breast has been done confirming presence of a abscess in 9:00 as well is possible abscess a 3:00 both near the areola. Past Medical History Cardiac Medical History: Reports: Hypertension Pulmonary Medical History: Reports: Asthma Neurological Medical History: Musculoskeltal Medical History: Reports: Arthritis - hands Psychiatric Medical History: Reports: Bipolar Disorder Hematology: Denies: Anemia Past Surgical History Past Surgical History: Reports: Section - x2, Other Social History Smoking Status: Unknown if Ever Smoked Frequency of Alcohol Use: None Hx Recreational Drug Use: No Hx Prescription Drug Abuse: No Family History Family History: Reviewed & Not Pertinent, Arthritis, CAD, DM, Hyperlipidemia, Hypertension, Malignancy Parental Family History Reviewed: No Children Family History Reviewed: No Sibling(s) Family History Reviewed.: No Medication/Allergy Home Medications: Gabapentin [Neurontin 300 mg Capsule] 300 mg PO Q8 03/27/17 Lamotrigine 50 mg PO DAILY@1600 03/27/17 Lurasidone HCl [Latuda 60 mg Tablet] 60 mg PO DAILY 03/27/17 Trazodone HCl [Desyrel 50 mg Tablet] 50 mg PO HSP PRN 03/27/17 Zolpidem Tartrate [Ambien Cr] 12.5 mg PO HSP PRN 03/27/17 Cephalexin Monohydrate [Keflex 500 mg Capsule] 500 mg PO BID #20 capsule 04/26/17 Sulfamethoxazole/Trimethoprim [Bactrim Ds Tablet] 1 each PO BID #20 tablet 04/26/17 Cyclobenzaprine HCl [Flexeril 5 mg Tablet] 5 mg PO TID #9 tablet 08/25/17 Sulfamethoxazole/Trimethoprim [Bactrim Ds Tablet] 1 each PO BID #20 tablet 11/09/17 Tramadol HCl [Ultram 50 mg Tablet] 50 mg PO ASDIR PRN #15 tablet 11/09/17 Cephalexin [Cephalexin 500 MG Tablet] 1 tab PO QID 7 Days #28 tablet 11/12/18 Fluconazole [Diflucan] 150 mg PO ONCE PRN #1 tablet 11/12/18 Hydrocodone/Acetaminophen [[place] 5-325 mg Tablet] 1 tab PO Q6 PRN #8 tablet 11/12/18 Sulfamethoxazole/Trimethoprim [Bactrim Ds Tablet] 1 each PO BID #20 tablet 11/12/18 Allergies/Adverse Reactions: lorazepam [From Ativan] Adverse Reaction (Mild, Verified 03/16/19 16:39) N&V, High fever Physical Exam Vital Signs: Temp Pulse Resp BP Pulse Ox 98.4 F 95 18 136/79 H 100 03/16/19 16:42 03/16/19 16:42 03/16/19 16:42 03/16/19 16:42 03/16/19 16:42 Intake & Output 03/15/19 03/16/19 03/17/19 06:59 06:59 06:59 Weight 90.7 kg General appearance: PRESENT: no acute distress Head exam: PRESENT: atraumatic Eye exam: PRESENT: EOMI Mouth exam: PRESENT: moist, neck supple Neck exam: PRESENT: carotid bruit Respiratory exam: PRESENT: clear to auscultation citlalli Cardiovascular exam: PRESENT: RRR GI/Abdominal exam: PRESENT: soft Rectal exam: PRESENT: deferred Skin exam: PRESENT: other - Right breast: Presence of a draining site with pus located at 9:00 near the areola with tenderness and erythema; presence of ulceration without drainage or tenderness or edema located at 3:00 near the areolar Results Laboratory Results: 03/16/19 20:40 03/16/19 20:40 03/16/19 03/16/19 20:40 20:40 WBC 8.5 RBC 4.55 Hgb 11.6 L Hct 36.3 MCV 80 MCH 25.5 L MCHC 32.0 RDW 18.4 H Plt Count 427 Seg Neutrophils % 53.2 Sodium 139.0 Potassium 4.4 Chloride 104 Carbon Dioxide 26 Anion Gap 9 BUN 9 Creatinine 0.81 Est GFR ( Amer) > 60 Glucose 90 Calcium 9.8 Total Bilirubin 0.5 AST 28 Alkaline Phosphatase 83 Total Protein 7.7 Albumin 4.4 Impressions: Breast Ultrasound 03/16/19 17:13 IMPRESSION: Hyperechoic areas at the periareolar level as described above could represent abscesses/infectious process. Questionable reactive lymph node at the level of the right axilla. Infectious process cannot be excluded. Assessment & Plan - Plan Summary Plan Summary: Assessment: Right breast draining abscess site located at 9:00 near the areolar Old right breast abscess site without drainage located at 3:00 in the outer areolar Ultrasound the right breast confirms the above physical findings History of recurrent right breast abscesses Plan: Incision and drainage of right breast abscess at ninth o'clock near the areolar under local anesthetic in the emergency room tonight Discharge to home tonight Bactrim double strength 1 tab p.o. twice a day for 10 days Check culture results in 48 hours by ER culture nurse Return to ED tomorrow for dressing changes (apply bacitracin ointment to surgical wound of the right breast, covered with 4 x 4's and tape) Sponge bath or shower only until wound is fully healed, afterwards she can bathe Follow-up with surgery clinic in 2 weeks
[2019-03-16] MEDS ORDERED: CEFAZOLIN 1 GM/D5W RTU 1 GM/50 ML RTUPB IV ONE (23:34)
[2019-03-16 23:36] VITALS: BP 144/84
[2019-03-16] MEDS ORDERED: CEFTRIAXONE 1 GM/D5W RTU 1 GM/50 ML RTUPB IV ONE (23:43)
[2019-03-16] MEDS ORDERED: LIDOCAINE 1% INJ (10 MG/ML) 10 ML MDV INJ ONE (23:43)
[2019-03-16] MEDS ORDERED: CEFTRIAXONE INJ 1000 MG VIAL IM ONE (23:45)
--- NOTE | 2019-03-16 23:45 | Operative Report ---
Operative Report DATE OF SURGERY: 03/16/19 PREOPERATIVE DIAGNOSIS: Right breast abscess at 9:00 near the areolar POSTOPERATIVE DIAGNOSIS: Same OPERATION: Incision and drainage of right breast abscess and 9:00 near the areolar SURGEON: CRISTOFER WHYTE ANESTHESIA: Local - 40 mils 1% lidocaine with epinephrine TISSUE REMOVED OR ALTERED: Purulent drainage from right breast abscess COMPLICATIONS: None ESTIMATED BLOOD LOSS: Less than 2 mL's INTRAOPERATIVE FINDINGS: Abscess cavity right breast at 9:00 near the areolar PROCEDURE: Procedure was done at bedside in the emergency room, the right breast was prepped draped in usual fashion and the abscess site and 9:00 near the areola was infiltrated with lidocaine. An #11 blade was used to make a curvilinear incision for about 1 inch long extending superiorly and inferiorly the open abscess draining site. Deep tissues were then divided with scissors and a small amount of pus was obtained. This was sent for aerobic and anaerobic culture. The surgical wound was irrigated with about 50 mL of normal saline until clear. Topical Bacitracin ointment was applied into the wound bed and this was covered with 4 x 4's, ABDs, and tape. The patient tolerated the procedure well.
== END 2019-03-17 00:08 | disposition home or self-care (01) ==
LOC: ER 16:38
DX: N61.1 Abscess of the breast and nipple (principal); I10 Essential (primary) hypertension; F17.210 Nicotine dependence, cigarettes, uncomplicated
CPT/HCPCS: 99284; 96372; 36415; 87070; 87205; 85025; 87075; 80053; 76642; 10060; J3490 ×4; J0696